=== PATIENT | female | born 1970 | race Two or more races ===

== ENCOUNTER 2022-09-15 10:54 | Outpatient (REF) | payer OTHER, SELFPAY ==
[2022-09-15 13:55] LABS: Hematocrit 41.6 % (37.0-47.0); Hemoglobin 13.8 g/dl (12.0-16.0); Mean Corpuscular HGB Conc 33.2 g/dl (31.0-35.0); Mean Corpuscular Volume 90.4 fL (80.0-98.0); Mean Platelet Volume 9.7 fL (9.4-12.3); Platelet Count 294 X10*3/uL (160-400); Red Cell Distribution Width 12.6 % (11.0-16.0); White Blood Count 5.5 X10*3/uL (4.8-10.8)
[2022-09-15 15:53] LABS: Alanine Aminotransferase 42 U/L (0-31); Albumin Level 4.6 g/dL (3.5-5.0); Alkaline Phosphatase 147 U/L (39-117); Anion Gap 16 (12-20); Aspartate Amino Transferase 31 U/L (5-31); Bilirubin Total 0.3 mg/dL (0.0-1.0); Blood Urea Nitrogen 20 mg/dL (9-16); Carbon Dioxide 24 mmol/L (22-29); Chloride 108 mmol/L (96-108); Cholesterol 300 mg/dL; Estimated Glomerular Filt Rate > 60; Glucose Fasting 87 mg/dL (60-99); HDL Cholesterol 47 mg/dL; LDL Cholesterol Calculated 224 mg/dl; Magnesium 2.2 mg/dL (1.6-2.6); Potassium 5.2 mmol/L (3.3-5.1); Sodium 143 mmol/L (135-145); Total Protein 7.7 g/dL (6.5-8.0); Triglycerides 149 mg/dL
[2022-09-21 19:17] LABS: Vitamin D 25-OH, D2 <4 ng/mL; Vitamin D 25-OH, D3 36 ng/mL; Vitamin D 25-OH, Total 36 ng/mL (30-100)
== END 2022-09-15 10:55 | disposition home or self-care (01) ==
LOC: HO.WFDLDS 10:54
PROVIDERS: Visit Provider Hospitalist
DX: Z00.00 Encounter for general adult medical examination without abnormal findings (principal); E55.9 Vitamin D deficiency, unspecified; Z71.89 Other specified counseling
CPT/HCPCS: 36415; 80053; 80061; 82306; 83735; 84443; 85027

== ENCOUNTER 2022-12-08 10:15 | Outpatient (REF) | payer OTHER, SELFPAY ==
--- NOTE | ~2022-12-08 | MM_ITS ---
EXAMINATION: MM SCREENING DIGITAL BREAST TOMOSYNTHESIS, BILATERAL CLINICAL INFORMATION: Screening. Asymptomatic. The lifetime risk of breast cancer based on the Tyrer-Cuzick Model is 6%. COMPARISON: Mammography: 10/13/2011, 06/01/2010 ([facility] [place]). TECHNIQUE: Digital breast tomosynthesis is performed in both the craniocaudal and mediolateral oblique views along with computer-aided detection (CAD). Synthesized 2D images are generated from the tomosynthesis. FINDINGS: The breasts are heterogeneously dense, which may obscure small masses (ACR BI-RADS breast composition Category c). There are no significant masses, abnormal calcifications, or other abnormalities. No architectural abnormality or developing density or significant change from prior studies. The axilla and skin contours are unremarkable. MM/MM tomosynthesis screening BI IMPRESSION: No mammographic evidence of malignancy. ASSESSMENT: BI-RADS 1: Negative RECOMMENDATION: Routine annual mammography screening. This patient's information was entered into a reminder system with a target due date for their next mammogram.
== END 2022-12-08 10:16 | disposition home or self-care (01) ==
LOC: HO.MAMMO 10:15
PROVIDERS: PCP Hospitalist; Visit Provider Hospitalist
DX: Z12.31 Encounter for screening mammogram for malignant neoplasm of breast (principal)
CPT/HCPCS: 77063; 77067

== ENCOUNTER 2023-05-02 10:16 | Outpatient (AMB) | payer OTHER, SELFPAY ==
--- NOTE | 2023-05-02 10:19 | MHC.PC.OV ---
Vital Signs 05/02/23 10:21 Height 4 ft 11 in Weight 102 lb 8 oz BMI 20.7 BP 114/66 Blood Pressure Location Rt brachial Position Sitting Respiration 13 Pulse 78 Pulse Source Pulse Oximeter Temp 97.8 F Temp Source Temporal Artery Scan Pulse Oximetry (%) 99 Oxygen Delivery Method Room Air Intake Visit Reasons: Physical exam Intake Note: Patient would like a copy of her physical at end of visit. Patient states that she has been having ear troubles when her sinuses start acting up. Ear Specialist Required: Yes Ear Specialist Name: Jose ([id number]) Accompanied by: Self / Same As Patient Allergies mold Allergy (Intermediate, Verified 05/02/23 11:14) Runny Nose Seasonal Allergies Allergy (Intermediate, Verified 05/02/23 11:14) Runny Nose Medication List - Last Reviewed 05/02/23 by Kimberly Orellana MA atorvastatin 40 mg PO BEDTIME cholecalciferol (vitamin D3) 25 mcg PO DAILY fluticasone furoate 27.5 mcg/actuation (Flonase Sensimist) 1 spray intranasal DAILY magnesium hydroxide (Dulcolax (magnesium hydroxide)) 5 mL PO DAILY PRN multivitamin (Daily Multi-Vitamin tablet) 1 tab PO DAILY Tobacco use date assessed: 05/02/23 Dental Screening Dental Screen Date: 05/02/23 Did you have a dental visit in the last 12 months?: No Did you have a dental problem in the last 6 months where you did not have access to dental care?: No Was dental information given to patient?: Patient has dentist HPI HPI Comments History of Present Illness Details 52-year-old female presents for transfer of care Her former PCP is MARTHA who is no longer with the practice. Her last office visit was in September and she had blood work done She has past medical history significant for hyperlipidemia and vitamin-D deficiency She notes that she taking vitamin D3 1000 units and mulitvitamins daily. She states that she has not been taking atorvastatin daily as prescribed, because i don't like taking medications. She notes that she has been more anxious throughout this year. She states that her breathing is impaired and her heart races when she is anxious. She attributes her anxiety to her daily routine and issues surrounding her family. Patients states that disputes with her daughter and her makes her anxious. She requests medication for anxiety. She denies formal diagnosis of anxiety and depression. She notes that she has never been on a psychotropic medication. She admits to exercising with weights 2 to 3 times a week. Her last mammogram was on 12/08/2022: normal She notes that her last pap smear test was was 4 years ago: normal. She notes that she has a f/u appointment with her second crusher provider in May She was referred to GI at her last PCP visit. She notes that she does not want colonoscopy done at this time. [facility] Medical History No known health problems Surgical History No pertinent past surgical history Family History Father Dementia No family history of mental disorder Mother Diabetes Lung cancer No family history of mental disorder Social History Household Members: Spouse and Children Housing: House Alcohol intake: never Patient Tobacco Use Status: Never used Tobacco e-Cigarette/Vaping Use: Never Used service: No Current occupational status: employed Current occupation: [employer] Cognitive needs: No Hearing needs: No Vision needs: No Questionnaire PHQ-9 Over the last 2 weeks, how often have you been bothered by any of the following problems? 1. Little interest or pleasure in doing things: more than half the days 2. Feeling down, depressed, or hopeless: more than half the days 3. Trouble falling or staying asleep, or sleeping too much: more than half the days 4. Feeling tired or having little energy: more than half the days 5. Poor appetite or overeating: more than half the days 6. Feeling bad about yourself - or that you are a failure or have let yourself or your family down: several days 7. Trouble concentrating on things, such as reading the newspaper or watching television: more than half the days 8. Moving or speaking so slowly that other people could have noticed. Or the opposite - being so fidgety or restless that you have been moving around a lot more than usual: more than half the days 9. Thoughts that you would be better off or of hurting yourself in some way: not at all Total score: 15 Depression Screening Interpretation: Positive Depression Screening Follow-up: New Medication prescribed Depression Screening Done: Yes Source: Developed by Drs. Patel Dorado, Taina Grimes, Last iGlbert and colleagues, with an educational noman from [employer]. Thrive Questionnaire Date Thrive assessed: 09/15/22 AUDIT C Alcohol Use Questionnaire (AUDIT-C) 1. How often do you have a drink containing alcohol?: Never 3. How often do you have six or more drinks on one occasion?: Never Total Score: 0 MELISA-7 AMB Questionnaire MELISA-7 Date MELISA - 7 assessed: 05/02/23 Feeling nervous, anxious, or on edge: 1 = Several days Not being able to stop or control worryin = More than half the days Worrying too much about different things: 1 = Several days Trouble relaxin = More than half the days Being so restless that it is hard to sit still: 0 = Not at all Becoming easily annoyed or irritable: 2 = More than half the days Feeling afraid as if something awful might happen: 0 = Not at all Total MELISA-7 score (0-4 normal; 5-9 mild; 10-14 moderate; 15-21 severe): 8 Source: Developed by Drs. Patel Dorado, Taina Grimes, Last Gilbert and colleagues, with an educational noman from [employer]. Review of Systems Const Details: Const Denies chills, Denies fatigue, Denies fever(s), Denies headache(s) and Denies weakness ENT Denies dizziness and Denies headache(s) Card Denies chest pain, Denies lightheadedness, Denies dyspnea and Denies other (Palpitations) Resp Denies cough, Denies dyspnea, Denies wheezing and Denies other ( shortness of breath) GI Denies abdominal pain, Denies melena, Denies hematochezia, Denies change in bowel habits, Denies dyspepsia and Denies nausea Denies hematuria and Denies dysuria Musc Denies abnormal gait, Denies myalgias, Denies arthralgias, Denies numbness and Denies tingling Skin/Breast Denies rash, Denies unusual bruising and Denies wounds Neuro Denies abnormal gait, Denies dizziness, Denies headache(s), Denies memory loss, Denies numbness, Denies Sensory deficit (Neuro), Denies tingling and Denies weakness Psych Reports anxiety, Denies depression, Denies memory loss Endo Denies cold intolerance, Denies fatigue, Denies heat intolerance, Denies polydipsia and Denies polyuria Aller/Immun Denies wheezing Physical exam (Primary Care) Vital Signs: Last Vital Signs Temp 97.8 F 05/02/23 10:21 Pulse 78 05/02/23 10:21 Resp 13 05/02/23 10:21 BP 114/66 05/02/23 10:21 Pulse Ox 99 05/02/23 10:21 Oxygen Delivery Method Room Air 05/02/23 10:21 BMI result Body Mass Index 20.7 Tobacco/Smoking Status: Tobacco use Status Tobacco use date assessed 05/02/23 05/02/23 10:33 Patient Tobacco Use Status Never used Tobacco 05/02/23 10:21 e-Cigarette/Vaping Use Never Used 05/02/23 10:21 Depression Screening Interpretation: Positive Depression Screening Follow-up: New Medication prescribed Thrive Assessment: Date of Thrive Assessment Date Thrive assessed 09/15/22 05/02/23 10:21 Const Other: General: no acute distress and well developed Nutritional Appearance: well nourished Orientation/consciousness: patient oriented x3 HENMT Head: Yes normocephalic and Yes atraumatic Eyes General: appearance normal, both eyes and all related structures Pupils: Equal, round and reactive pupils present EOM: EOMs intact bilaterally Resp Effort & Inspection: normal respiratory effort Auscultation: clear to auscultation bilaterally Cardio Rate: regular rate Rhythm: regular rhythm Heart sounds: S1 normal heart sound present, S2 normal heart sound present, no gallops, no murmurs and no rubs GI Palpation (GI): No Abdominal aortic bruit present, Soft to palpation, nontender, No hepatosplenomegaly present and No Rebound tenderness present Auscultation: normal bowel sounds General: Yes no CVA tenderness Back/Spine/Pelvis Back: no CVA tenderness Cervical Spine: cervical ROM normal and No Cervical spine tenderness Thoracic/Lumbar Spine: thoraco-lumbar ROM normal, No pain with thoraco-lumbar ROM, No thoracic spinal tenderness and No lumbar spinal tenderness Extrem General: Yes normal to inspection, No edema and No calf tenderness Skin General: warm and dry. Normal skin color. Normal skin turgor Lesions: no lesions Rashes: no rashes Trauma: no lacerations or abrasions Wounds: no wounds Nails: normal Neuro General: patient oriented x3, gait normal and no focal neuro deficit Cranial nerves: Yes Equal, round and reactive pupils present Cognition (Neuro): normal cognition Gait exam (Neuro): Normal gait present Sensory Exam: No Sensory deficit (Neuro) Psych Appearance: grossly normal Affect: normal affect Attitude: cooperative Thought process: Normal thought process present Assessment and Plan Assessment & Plan (1) Hyperlipidemia: Code(s): E78.5 - Hyperlipidemia, unspecified Plan: She had blood work done in September 2022 Her total cholesterol and LDL levels were elevated, 300 and 224 respectively She has not been consistent with taking atorvastatin. Advised to take the medication as prescribed Advised to limit foods high in saturated fat and avoid foods high trans fat Will recheck lipids level. Advised to fast for 10-12 hours before getting blood work done Follow-up in 1 month or return sooner with symptoms or concerns Verbalized understanding and agreed with treatment plan. (2) Vitamin D deficiency: Code(s): E55.9 - Vitamin D deficiency, unspecified Plan: She admits to taking D3 1000 units daily Recent vitamin D3 level in September was normal, 36 Will recheck vitamin-D levels and make changes to her care plan as needed Continue to take vitamin D3 1000 units daily Verbalized understanding and agreed with treatment plan. (3) Hyperkalemia: Code(s): E87.5 - Hyperkalemia Plan: Her potassium level was slightly elevated in September, 5.2 Will recheck potassium level and make changes to her care plan if warranted Follow-up in 1 month or return sooner with symptoms or concerns Verbalized understanding and agreed with treatment plan. (4) Transaminitis: Code(s): R74.01 - Elevation of levels of liver transaminase levels Plan: Recent ALT alkaline phosphate levels were elevated, 42 and 147 respectively She denies history of alcohol intake. She is not obese Will recheck liver panel and make changes to her care plan if warranted Follow-up in 1 month Verbalized understanding and agreed with treatment plan. (5) Anxiety and depression: Code(s): F41.9 - Anxiety disorder, unspecified; F32.A - Depression, unspecified Plan: PHQ-9 and MELISA-7 scores revealed moderately severe depression and mild anxiety respectively Hydroxyzine ordered. Take as prescribed Routine exercise encouraged Follow-up in 1 month or return sooner with worsening or new symptoms Verbalized understanding and agreed with treatment plan. Orders: Orders Comprehensive [place]. Panel Fast Today E55.9 - Vitamin D deficiency, unspecified, E87.5 - Hyperkalemia, R74.01 - Elevation of levels of liver transaminase levels Lipid Panel Today E78.5 - Hyperlipidemia, unspecified Vitamin D 25-OH Total Today E55.9 - Vitamin D deficiency, unspecified Medications: New hydroxyzine HCl 25 mg PO TID 30 days PRN 90 tabs 1RF anxiety Coding Level of Care Code Est Pt Level 4 (10274) Diagnoses Hyperlipidemia E78.5 Vitamin D deficiency E55.9 Hyperkalemia E87.5 Transaminitis R74.01 Anxiety and depression F41.9; F32.A
[2023-05-02 10:21] VITALS: BP 114/66; PULSE 78; RESP 13; TEMP 36.6; O2SAT 99; BMI 20.7
== END 2023-05-02 11:51 | disposition home or self-care (01) ==
PROVIDERS: PCP Hospitalist; Visit Provider Nurse Practitioner Family
DX: E78.5 Hyperlipidemia, unspecified (principal); E55.9 Vitamin D deficiency, unspecified; E87.5 Hyperkalemia; R74.01 Elevation of levels of liver transaminase levels; F41.9 Anxiety disorder, unspecified; F32.A Depression, unspecified
CPT/HCPCS: 99214

== ENCOUNTER 2023-05-08 09:02 | Outpatient (REF) | payer OTHER, SELFPAY ==
[2023-05-08 12:45] LABS: Alanine Aminotransferase 49 U/L (0-31); Albumin Level 4.6 g/dL (3.5-5.0); Alkaline Phosphatase 145 U/L (39-117); Anion Gap 17 (12-20); Aspartate Amino Transferase 27 U/L (5-31); Bilirubin Total 0.4 mg/dL (0.0-1.0); Blood Urea Nitrogen 11 mg/dL (9-16); Calcium 10.4 mg/dL (8.4-10.2); Carbon Dioxide 25 mmol/L (22-29); Chloride 104 mmol/L (96-108); Cholesterol 274 mg/dL (<200); Estimated Glomerular Filt Rate > 60; Glucose Fasting 88 mg/dL (60-99); HDL Cholesterol 45 mg/dL (>40); LDL Cholesterol Calculated 191 mg/dL (<100); Potassium 4.7 mmol/L (3.3-5.1); Sodium 141 mmol/L (135-145); Total Protein 7.9 g/dL (6.5-8.0); Triglycerides 192 mg/dL (<150)
[2023-05-08 13:11] LABS: Vitamin D 25-OH Total 86.7 ng/mL (>30)
== END 2023-05-08 09:03 | disposition home or self-care (01) ==
LOC: HO.WFDLDS 09:02
PROVIDERS: Visit Provider Nurse Practitioner Family
DX: R74.01 Elevation of levels of liver transaminase levels (principal); E87.5 Hyperkalemia; E55.9 Vitamin D deficiency, unspecified; E78.5 Hyperlipidemia, unspecified; R73.01 Impaired fasting glucose
CPT/HCPCS: 36415; 80053; 80061; 82306

== ENCOUNTER 2023-08-08 11:30 | Outpatient (AMB) | payer OTHER, SELFPAY ==
[2023-08-08 11:34] VITALS: BP 126/68; PULSE 99; TEMP 36.7; O2SAT 97; BMI 20.2
--- NOTE | 2023-08-08 11:34 | AM.OFFWIN_ITS ---
Intake Vital Signs 08/08/23 11:34 Height 4 ft 11 in Weight 100 lb BMI 20.2 BP 126/68 Blood Pressure Location Lt brachial Position Sitting Pulse 99 Pulse Source Pulse Oximeter Temp 98.0 F Temp Source Temporal Artery Scan Pulse Oximetry (%) 97 Oxygen Delivery Method Room Air Oxygen Flow Rate 98.0 Intake Visit Reasons: EST/sore throat and ear pain(lobby masked) Intake Note: pt is here today for sore throat and ear pain started 1 week ago Patient Tobacco Use Status: Never used Tobacco Allergies mold Allergy (Intermediate, Verified 08/08/23 11:35) Runny Nose Seasonal Allergies Allergy (Intermediate, Verified 08/08/23 11:35) Runny Nose Do you need a note to return to daycare/school/sports/work: No HPI HPI Comments History of Present Illness Details Patient is a 53-year-old female in today for a sick visit. She states that over the past week she has developed symptoms of cough, sore throat, ear fullness, headache. Patient states that her cough is worse in the morning and at night. She has a past medical history significant for asthma, does not have an albuterol inhaler at this time, will prescribe. Denies sick contacts. Denies recent travel. Denies shortness of breath, chest pain, nausea, numbness, dizziness, vomiting, diarrhea. [facility] Medical History No known health problems Surgical History No pertinent past surgical history Family History Father Dementia No family history of mental disorder Mother Diabetes Lung cancer No family history of mental disorder Social History Household Members: Spouse and Children Housing: House Alcohol intake: never Patient Tobacco Use Status: Never used Tobacco e-Cigarette/Vaping Use: Never Used service: No Current occupational status: employed Current occupation: [employer] Cognitive needs: No Hearing needs: No Vision needs: No Review of Systems Const All systems reviewed & are unremarkable except as noted in HPI and below Reports headache(s) ENT Denies dizziness, Reports otalgia, Reports headache(s) and Reports sore throat Card Denies chest pain, Denies chest pain at rest, Denies dyspnea and Denies dyspnea on exertion Resp Reports cough (With green mucus), Denies dyspnea and Denies dyspnea on exertion Neuro Denies dizziness and Reports headache(s) Physical Exam Vital Signs: Last Vital Signs Temp 98.0 F 08/08/23 11:34 Pulse 99 08/08/23 11:34 BP 126/68 08/08/23 11:34 Pulse Ox 97 08/08/23 11:34 Oxygen Delivery Method Room Air 08/08/23 11:34 Oxygen Flow Rate 98.0 08/08/23 11:34 BMI result Body Mass Index 20.2 Vital signs reviewed stable Const Other: Appearance: Alert.? Oriented X3.? No acute distress.? Head: Normocephalic, atraumatic, no step-offs or deformities Eyes: Pupils equal, round and reactive to light.? ENT: Pharynx erythema. TM intact no erythema but effusion bilaterally. Neck: Normal inspection.? Neck supple.?Full ROM CVS: Normal heart rate and rhythm.? Pulses normal.? Respiratory: No respiratory distress.? Breath sounds normal.? Neuro: Oriented X 3.? No motor deficit.? No sensory deficit. CN 2-12 intact Results AMB Rapid Strep AMB Rapid Strep Negative Last Edit by Ginny Gaspar CMA on 08/08/23 11:54 Results Reviewed Results Reviewed: Laboratory Last Values Strep Scn [facility] Negative 08/08/23 11:54 Assessment & Plan Assessment & Plan (1) Upper respiratory infection: Comment: Patient had upper respiratory swab in office will get back to her with results. Patient had in office strep test which was negative. Will order prednisone, deanna thromycin, with a albuterol inhaler, benzonatate to be taken as directed. Patient has been educated on signs of worsening symptoms when to report back to the office when to present to the ED. Code(s): J06.9 - Acute upper respiratory infection, unspecified Qualifiers: URI type: unspecified URI Qualified Code(s): J06.9 - Acute upper respiratory infection, unspecified Plan: Take your medications as prescribed. If you were prescribed antibiotics today, it is important that you take your medication to their entirety, do not skip any doses, do not finish them early. Follow-up with your primary care provider this week. Return to the emergency department with new or worsening symptoms. Such as fevers, chills, chest pain, shortness of breath, nausea, vomiting, dizziness, headache, vision changes, lethargy In case of emergency call 911 Plan Follow-up with PCP. Orders: Orders AMB Rapid Strep Screen 08/08/23 Z13.9 - Encounter for screening, unspecified BEKA Choi SARS-CoV2/FLU/RSV 08/08/23 J06.9 - Acute upper respiratory infection, unspecified ARAM Vazquez Medications: New albuterol sulfate 90 mcg/actuation 2 puffs inhalation Q6H PRN 6.7 grams 0RF shortness of breath or wheezing ARAM Vazquez prednisone 20 mg PO BID 10 tabs 0RF ARAM Vazquez benzocaine-menthol 15-2.6 mg (Cepacol Sore Throat (benzocaine-menthol)) 1 shawn mucous membrane Q2-4H PRN 16 ea 0RF pain ARAM Vazquez azithromycin For 250 mg dose pack: take 500 mg today (day 1), then 250 mg for 4 days (days 2-5) PO 6 tabs 0RF ARAM Vazquez Coding Level of Care Code Est Pt Level 3 (63675) Diagnoses Upper respiratory tract infection, unspecified type J06.9 URI type: unspecified URI
== END 2023-08-08 12:32 | disposition home or self-care (01) ==
PROVIDERS: PCP Nurse Practitioner Family; Visit Provider Nurse Practitioner Primary Care
DX: J06.9 Acute upper respiratory infection, unspecified (principal)
CPT/HCPCS: 87880; 99213

== ENCOUNTER 2023-08-08 14:09 | Outpatient (REF) | payer OTHER, SELFPAY ==
[2023-08-08 14:56] LABS: Influenza A PCR NEGATIVE (Negative); Influenza B PCR NEGATIVE (Negative); Resp Syncy Virus RNA Qual PCR NEGATIVE (Negative); SARS COV2 PCR INHOUSE NEGATIVE (Negative)
== END 2023-08-08 14:10 | disposition home or self-care (01) ==
LOC: HO.LNP 14:09
PROVIDERS: Visit Provider Nurse Practitioner Primary Care
DX: J06.9 Acute upper respiratory infection, unspecified (principal); Z11.52 Encounter for screening for COVID-19; Z20.828 Contact with and (suspected) exposure to other viral communicable diseases
CPT/HCPCS: 0241U

== ENCOUNTER 2023-09-23 09:57 | Outpatient (AMB) | payer OTHER, SELFPAY ==
[2023-09-23 10:22] VITALS: BP 114/73; PULSE 90; TEMP 36.9; O2SAT 98; BMI 20.2
--- NOTE | 2023-09-23 10:22 | AM.OFFWIN_ITS ---
Intake Vital Signs 09/23/23 10:22 Height 4 ft 11 in Weight 100 lb BMI 20.2 BP 114/73 Blood Pressure Location Rt brachial Pulse 90 Pulse Source Pulse Oximeter Temp 98.5 F Temp Source Oral Pulse Oximetry (%) 98 Oxygen Delivery Method Room Air Intake Visit Reasons: EP ?Pulmonary infection Intake Note: pt is here for c/o possible upper resp infection Patient Tobacco Use Status: Never used Tobacco Allergies mold Allergy (Intermediate, Verified 09/23/23 10:23) Runny Nose Seasonal Allergies Allergy (Intermediate, Verified 09/23/23 10:23) Runny Nose Do you need a note to return to daycare/school/sports/work: No HPI HPI Comments History of Present Illness Details 53-year-old female who presents for conc mamie of productive cough sinus pain and pressure. Been present for over a week now. She has been using Flonase without much relief. Getting ready to travel and is concerned about her symptoms. [facility] Medical History No known health problems Surgical History No pertinent past surgical history Family History Father Dementia No family history of mental disorder Mother Diabetes Lung cancer No family history of mental disorder Social History Household Members: Spouse and Children Housing: House Alcohol intake: never Patient Tobacco Use Status: Never used Tobacco e-Cigarette/Vaping Use: Never Used service: No Current occupational status: employed Current occupation: [employer] Cognitive needs: No Hearing needs: No Vision needs: No Physical Exam Vital Signs: Last Vital Signs Temp 98.5 F 09/23/23 10:22 Pulse 90 09/23/23 10:22 BP 114/73 09/23/23 10:22 Pulse Ox 98 09/23/23 10:22 Oxygen Delivery Method Room Air 09/23/23 10:22 BMI result Body Mass Index 20.2 Const General: cooperative, healthy appearing, no acute distress and alert Orientation/consciousness: patient oriented x3 Limitations: no limitations HEENT Other: Maxillary tenderness to palpation bilaterally Head: Yes normal to inspection Ears: hearing grossly normal bilaterally General nose exam: Normal external nose present Resp Effort & Inspection: normal respiratory effort and able to speak in complete sentences Cardio Rate: regular rate Skin General skin exam: no rashes or lesions noted Neuro General: patient oriented x3 Extrem General: Yes normal to inspection Assessment & Plan Assessment & Plan (1) Acute sinusitis: Code(s): J01.90 - Acute sinusitis, unspecified Qualifiers: Sinusitis location: maxillary Recurrence: non-recurrent Qualified Code(s): J01.00 - Acute maxillary sinusitis, unspecified Plan: Signs symptoms consistent with acute maxillary sinusitis will prescribe Augmentin b.i.d. times 10 days Medications: New amoxicillin-pot clavulanate 875-125 mg 1 tab PO BID 20 tabs 0RF 10 days Coding Level of Care Code Est Pt Level 2 (03961) Diagnoses Acute non-recurrent maxillary sinusitis J01.00 Sinusitis location: maxillary Recurrence: non-recurrent
== END 2023-09-23 11:12 | disposition home or self-care (01) ==
PROVIDERS: PCP Nurse Practitioner Family; Visit Provider Physician Assistant
DX: J01.00 Acute maxillary sinusitis, unspecified (principal)
CPT/HCPCS: 99051; 99212

== ENCOUNTER 2023-12-11 09:47 | Outpatient (AMB) | payer OTHER, SELFPAY ==
--- NOTE | 2023-12-11 11:17 | AM.OFFWIN_ITS ---
Intake Vital Signs 12/11/23 11:18 Height 4 ft 11 in Weight 99 lb BMI 20.0 BP 110/66 Blood Pressure Location Lt brachial Position Sitting Pulse 87 Pulse Source Pulse Oximeter Temp 97.5 F Temp Source Temporal Artery Scan Pulse Oximetry (%) 98 Oxygen Delivery Method Room Air Intake Visit Reasons: EP cough soar throat Intake Note: pt is here for cough and sore throat started 4 days ago Patient Tobacco Use Status: Never used Tobacco Allergies mold Allergy (Intermediate, Verified 12/11/23 11:23) Runny Nose Seasonal Allergies Allergy (Intermediate, Verified 12/11/23 11:23) Runny Nose Do you need a note to return to daycare/school/sports/work: No HPI HPI Comments History of Present Illness Details Patient presents to the walk in for 1 week cough, congestion, ear itching, sore throat has been taking OTC allergy medicine without improvement seen here couple months ago for same. given albuterol MDI but has run out. Denies fever, chest pain, shortness of breath, palpitations, syncope, weakness PFSH Medical History No known health problems Surgical History No pertinent past surgical history Family History Father Dementia No family history of mental disorder Mother Diabetes Lung cancer No family history of mental disorder Social History Household Members: Spouse and Children Housing: House Alcohol intake: never Patient Tobacco Use Status: Never used Tobacco e-Cigarette/Vaping Use: Never Used service: No Current occupational status: employed Current occupation: [employer] Cognitive needs: No Hearing needs: No Vision needs: No Review of Systems Const All systems reviewed & are unremarkable except as noted in HPI and below Physical Exam Vital Signs: Last Vital Signs Temp 97.5 F 12/11/23 11:18 Pulse 87 12/11/23 11:18 BP 110/66 12/11/23 11:18 Pulse Ox 98 12/11/23 11:18 Oxygen Delivery Method Room Air 12/11/23 11:18 BMI result Body Mass Index 20.0 General: awake, alert, oriented. Answers questions appropriately. Fully engaged in examination. Skin: warm, dry, intact HEENT: TMs intact bilaterally, no redness. Posterior pharynx without erythema or exudate. Sclera without icterus or injection. Cardiac: External chest normal in appearance. Respiratory: + dry cough. LSCTAB. Abdomen: without gross distension. Neurological: Oriented to person, place, time and situation. Thought process intact. Psychiatric: Appropriate mood and affect. Good judgment and insight. Results AMB Rapid Strep AMB Rapid Strep Negative Last Edit by TAO Hahn on 12/11/23 11:5 8 Assessment & Plan Assessment & Plan (1) Upper respiratory infection: Code(s): J06.9 - Acute upper respiratory infection, unspecified Qualifiers: URI type: unspecified URI Qualified Code(s): J06.9 - Acute upper respiratory infection, unspecified Plan URI, no abx warranted. alb refill sent Benzonatate 100mg po bid as needed prednisone 40mg po daily X 5 days Rest, drink plenty of fluids, tylenol or motrin as needed. continue with claritin/zyrtec Follow up with pcp or in clinic for any new or worsening symptoms. Go to ER for shortness of breath, chest pain, palpitations, weakness, dizziness. Orders: Orders AMB Rapid Strep Screen Today Z13.9 - Encounter for screening, unspecified Medications: New prednisone 40 mg (2 x 20 mg) PO DAILY 5 days 10 tabs 0RF benzonatate 100 mg PO BID PRN 20 caps 0RF cough Refilled albuterol sulfate 90 mcg/actuation 2 puffs inhalation Q6H PRN 6.7 grams 0RF shortness of breath or wheezing Coding Level of Care Code Est Pt Level 3 (96681) Diagnoses Upper respiratory tract infection, unspecified type J06.9 URI type: unspecified URI
[2023-12-11 11:18] VITALS: BP 110/66; PULSE 87; TEMP 36.4; O2SAT 98
== END 2023-12-11 12:18 | disposition home or self-care (01) ==
PROVIDERS: PCP Nurse Practitioner Family; Visit Provider Registered Nurse Emergency
DX: J02.9 Acute pharyngitis, unspecified (principal)
CPT/HCPCS: 87880; 99213

== ENCOUNTER 2023-12-28 10:28 | Outpatient (AMB) | payer OTHER, SELFPAY ==
[2023-12-28 10:46] VITALS: BP 140/70; PULSE 122; TEMP 36.4; O2SAT 98; BMI 20.4
--- NOTE | 2023-12-28 10:46 | AM.OFFWIN_ITS ---
Intake Vital Signs 12/28/23 10:46 12/28/23 11:15 Height 4 ft 11 in Weight 101 lb BMI 20.4 BP 140/70 H Blood Pressure Location Lt brachial Position Sitting Pulse 122 H 95 Pulse Source Pulse Oximeter Palpation Temp 97.5 F Temp Source Temporal Artery Scan Pulse Oximetry (%) 98 Oxygen Delivery Method Room Air Intake Visit Reasons: EP F/U sore throat cough congestion Intake Note: pt is here today for sore throat started 1 month ago Patient Tobacco Use Status: Never used Tobacco Allergies mold Allergy (Intermediate, Verified 12/28/23 11:13) Runny Nose Seasonal Allergies Allergy (Intermediate, Verified 12/28/23 11:13) Runny Nose Medication List - Last Reconciled 12/28/23 by ARAM Vazquez albuterol sulfate 90 mcg/actuation 2 puffs inhalation Q6H PRN atorvastatin 40 mg PO BEDTIME benzonatate 100 mg PO BID PRN cholecalciferol (vitamin D3) 25 mcg PO DAILY fluticasone furoate 27.5 mcg/actuation (Flonase Sensimist) 1 spray intranasal DAILY magnesium hydroxide (Dulcolax (magnesium hydroxide)) 5 mL PO DAILY PRN multivitamin (Daily Multi-Vitamin tablet) 1 tab PO DAILY Do you need a note to return to daycare/school/sports/work: No HPI HPI Comments History of Present Illness Details Patient is a 53-year-old female in today for a sick visit. She was in today with symptoms of cough, sore throat, chest congestion, sinus tenderness x3 weeks. Patient was seen in our walk-in clinic 2 weeks prior with similar symptoms was given prednisone and benzonatate. Patient states that her symptoms relief while she was taking the medication, however when she stopped the prednisone the symptoms soon return Patient denies sick contacts. States that the cough is worse at night. She reports that she is expectorating green and yellow mucus denies fever or chills, denies chest pain, denies shortness of breath, nausea vomiting or diarrhea. Patient utilized albuterol inhaler immediately before this appointment. Will give patient azithromycin today, prednisone, refill albuterol inhaler. Will also obtain URI swab ON LICENSE OF [facility] Medical History No known health problems Surgical History No pertinent past surgical history Family History Father Dementia No family history of mental disorder Mother Diabetes Lung cancer No family history of mental disorder Social History Household Members: Spouse and Children Housing: House Alcohol intake: never Patient Tobacco Use Status: Never used Tobacco e-Cigarette/Vaping Use: Never Used service: No Current occupational status: employed Current occupation: [employer] Cognitive needs: No Hearing needs: No Vision needs: No Review of Systems Const All systems reviewed & are unremarkable except as noted in HPI and below Denies chills and Denies fever(s) Eyes Denies blurry vision ENT Denies dizziness and Reports sore throat Card Denies chest pain and Denies dyspnea Resp Reports cough and Denies dyspnea GI Denies diarrhea, Denies nausea and Denies vomiting Neuro Denies dizziness Physical Exam Vital Signs: Last Vital Signs Temp 97.5 F 12/28/23 10:46 Pulse 122 H 12/28/23 10:46 BP 140/70 H 12/28/23 10:46 Pulse Ox 98 12/28/23 10:46 Oxygen Delivery Method Room Air 12/28/23 10:46 BMI result Body Mass Index 20.4 Const Other: Appearance: Alert.? Oriented X3.? No acute distress.? Head: Normocephalic. Eyes: Sclera white. ENT: Pharynx erythema, no exudates. +sinus tenderness. ? Neck: Normal inspection.? Neck supple.? CVS: Normal heart rate and rhythm.? Pulses normal.?Reassessment of HR 96 BPM. Respiratory: No respiratory distress.? Breath sounds normal. +cough with inspiration. ? Neuro: Oriented X 3.? No motor deficit.? No sensory deficit. CN 2-12 intact Results AMB Rapid Strep AMB Rapid Strep Negative Last Edit by TAO Hahn on 12/28/23 11:0 6 Assessment & Plan Assessment & Plan (1) Sinusitis: Comment: Patient will be given azithromycin, prednisone, and albuterol inhaler refilled. Patient has been instructed how to take these medications properly. She has been educated on side effects of these medications Code(s): J32.9 - Chronic sinusitis, unspecified Qualifiers: Chronicity: acute Recurrence: not specified as recurrent Sinusitis location: unspecified location Qualified Code(s): J01.90 - Acute sinusitis, unspecified Plan: Take your medications as prescribed. If you were prescribed antibiotics today, it is important that you take your medication to their entirety, do not skip any doses, do not finish them early. Follow-up with your primary care provider this week. Return to the emergency department with new or worsening symptoms. Such as fevers, chills, chest pain, shortness of breath, nausea, vomiting, dizziness, headache, vision changes, lethargy In case of emergency call 911 Plan Will follow-up with URI swab results Orders: Orders SARS-CoV2/FLU/RSV Today J06.9 - Acute upper respiratory infection, unspecified AMB Rapid Strep Screen Today Z13.9 - Encounter for screening, unspecified Medications: New prednisone 40 mg (2 x 20 mg) PO DAILY 10 tabs 0RF azithromycin For 250 mg dose pack: take 500 mg today (day 1), then 250 mg for 4 days (days 2-5) PO 6 tabs 0RF Refilled albuterol sulfate 90 mcg/actuation 2 puffs inhalation Q6H PRN 6.7 grams 0RF shortness of breath or wheezing Coding Level of Care Code Est Pt Level 3 (38991) Diagnoses Acute sinusitis, recurrence not specified, unspecified location J01.90 Chronicity: acute Recurrence: not specified as recurrent Sinusitis location: unspecified location Time Spent (min) 25
[2023-12-28 11:15] VITALS: PULSE 95
== END 2023-12-28 12:00 | disposition home or self-care (01) ==
PROVIDERS: PCP Nurse Practitioner Family; Visit Provider Nurse Practitioner Primary Care
DX: J02.9 Acute pharyngitis, unspecified (principal)
CPT/HCPCS: 87880; 99213

== ENCOUNTER 2023-12-28 13:16 | Outpatient (REF) | payer OTHER, SELFPAY ==
[2023-12-28 14:16] LABS: Influenza A PCR NEGATIVE (Negative); Influenza B PCR NEGATIVE (Negative); Resp Syncy Virus RNA Qual PCR NEGATIVE (Negative); SARS COV2 PCR INHOUSE NEGATIVE (Negative)
== END 2023-12-28 13:17 | disposition home or self-care (01) ==
LOC: HO.LNP 13:16
PROVIDERS: Visit Provider Nurse Practitioner Primary Care
DX: J06.9 Acute upper respiratory infection, unspecified (principal)
CPT/HCPCS: 0241U

== ENCOUNTER 2024-04-04 09:38 | Outpatient (AMB) | payer OTHER, SELFPAY ==
--- NOTE | 2024-04-04 09:42 | A.OFFPC_ITS ---
Vital Signs 04/04/24 09:49 Height 4 ft 11 in Weight 102 lb 6 oz BMI 20.7 BP 110/80 Blood Pressure Location Rt brachial Position Sitting Respiration 16 Pulse 76 Pulse Source Pulse Oximeter Temp 98.1 F Temp Source Oral Pulse Oximetry (%) 99 Oxygen Delivery Method Room Air Intake Visit Reasons: CPE Intake Note: patient here for CPE Group Underwriter Required: No Is last menstrual period known: No Post menopausal: No Patient : No Allergies mold Allergy (Intermediate, Verified 04/04/24 09:58) Runny Nose Seasonal Allergies Allergy (Intermediate, Verified 04/04/24 09:58) Runny Nose Medication List - Last Reconciled 04/04/24 by Fco Serna CNP albuterol sulfate 90 mcg/actuation 2 puffs inhalation Q6H PRN cholecalciferol (vitamin D3) 25 mcg PO DAILY fluticasone furoate 27.5 mcg/actuation (Flonase Sensimist) 1 spray intranasal DAILY magnesium hydroxide (Dulcolax (magnesium hydroxide)) 5 mL PO DAILY PRN Tobacco use date assessed: 04/04/24 Dental Screening Dental Screen Date: 04/04/24 Did you have a dental visit in the last 12 months?: Yes Did you have a dental problem in the last 6 months where you did not have access to dental care?: No Was dental information given to patient?: Patient has dentist HPI HPI Comments History of Present Illness Details 53-year-old [place] speaking female pres ents for an extended physical exam She has past medical history significant for hyperlipidemia, vitamin-D deficiency, transaminitis, anxiety, and depression She notes that she stopped taking atorvastatin 2 months ago because she does not like taking too many medications She reports pain and numbness to her fingers which has been ongoing for the past 1 year; she notes associated tingling at night; she describes the pain as pulsating. Her symptoms intensifies with performing activities with her hands. She has been taking ibuprofen without relief. No wrist pain. No fall, injury, or trauma. She also reports pain to the back of her right shoulder for the past 3 weeks; she was exercising using 15 to 20 lb weights; she has not been able to lift weights since his shoulder pain started She states that she generally eats and sleeps well. She exercises routinely She reports controlled anxiety and depressive symptoms Nonsmoker, Does not drink alcohol, no recreational drugs Last eye exam was 2-3 years ago. She requests a referral Last mammogram on 12/2022, She declines referral for a mammogram and notes she does not wish to continue mammogram She has never had a colonoscopy. She declined referral for a colonoscopy and notes she does not wish to continue colonoscopy She notes that her last pap smear test was with [facility] resident hall director 3 years ago. She will follow up with her resident hall director She has not been vaccinated for shingles and declines the vaccine Last tetanus vaccine was in 2019 Interpretation by a professional research professional [facility] Medical History No known health problems Surgical History No pertinent past surgical history Family History Father Dementia No family history of mental disorder Mother Diabetes Lung cancer No family history of mental disorder Social History Household Members: Spouse and Children Housing: House Alcohol intake: never Patient Tobacco Use Status: Never used Tobacco e-Cigarette/Vaping Use: Never Used service: No Current occupational status: employed Current occupation: [employer] Current occupational exposures/hazards: No Cognitive needs: No Hearing needs: No Vision needs: No Questionnaire PHQ-9 Over the last 2 weeks, how often have you been bothered by any of the following problems? 1. Little interest or pleasure in doing things: not at all 2. Feeling down, depressed, or hopeless: not at all 3. Trouble falling or staying asleep, or sleeping too much: several days 4. Feeling tired or having little energy: several days 5. Poor appetite or overeating: not at all 6. Feeling bad about yourself - or that you are a failure or have let yourself or your family down: not at all 7. Trouble concentrating on things, such as reading the newspaper or watching television: not at all 8. Moving or speaking so slowly that other people could have noticed. Or the opposite - being so fidgety or restless that you have been moving around a lot more than usual: not at all 9. Thoughts that you would be better off or of hurting yourself in some way: not at all Total score: 2 Depression Screening Interpretation: Negative Depression Screening Done: Yes 79884 - PHQ-9 Billing: Yes Source: Developed by Drs. Patel Dorado, Taina Grimes, Last Gilbert and colleagues, with an educational noman from [employer]. Thrive Questionnaire Date Thrive assessed: 04/04/24 I am a: Patient What is your living situation today?: I have a steady place to live Within the past 12 months, did the food you bought not last and you didn't have the money to get more?: Never true Within the past 12 months, did you worry whether your food would run out before you got money to buy more?: Never true Do you have trouble paying for medicines?: No Do you have trouble getting transportation to medical appointments?: No Do you have trouble paying your heating and electricity bill?: No Do you have trouble taking care of your child, family member or friend?: No Do you have trouble with day-to-day activities such as bathing, preparing meals, shopping, managing finances, etc.?: No Are you currently unemployed and looking for a job?: No Are you interested in more education?: No Please select the resources that you would like help with: None Currently or been in a relationship where the following occur: No concerns reported THRIVE Score: 0 AUDIT C Alcohol Use Questionnaire (AUDIT-C) 1. How often do you have a drink containing alcohol?: Never Total Score: 0 Score Reviewed/Action Taken: Yes MELISA-7 AMB Questionnaire MELISA-7 Date MELISA - 7 assessed: 04/04/24 Feeling nervous, anxious, or on edge: 2 = More than half the days Not being able to stop or control worryin = Several days Worrying too much about different things: 1 = Several days Trouble relaxin = Several days Being so restless that it is hard to sit still: 0 = Not at all Becoming easily annoyed or irritable: 1 = Several days Feeling afraid as if something awful might happen: 0 = Not at all Total MELISA-7 score (0-4 normal; 5-9 mild; 10-14 moderate; 15-21 severe): 6 Source: Developed by Taina Barriga Cornelio, Last Gilbert and colleagues, with an educational noman from [employer]. MELISA-7 Assessment Billing MELISA-7 Assessment Tool: MELISA-7 Assessment 40773 Review of Systems Const Details: Denies chills, Denies fatigue, Denies fever(s), Denies headache(s) and Denies weakness HEENT Denies change in vision, Denies dizziness, Denies headache(s), Denies hearing loss, Denies nasal congestion, Denies sinus pain, Denies sinus pressure and Denies sore throat Card Denies chest pain, Denies lightheadedness, Denies dyspnea and Denies other (palpitations) Resp Denies cough, Denies dyspnea and Denies wheezing GI Denies abdominal pain, Denies melena, Denies hematochezia, Denies change in bowel habits, Denies dyspepsia and Denies nausea Denies hematuria and Denies dysuria Musc Reports as per HPI Skin/Breast Denies rash, Denies unusual bruising and Denies wounds Neuro Denies abnormal gait, Denies dizziness, Denies headache(s), Denies memory loss, Denies numbness, Denies Sensory deficit (Neuro), Denies tingling and Denies weakness Psych Denies anxiety, Denies depression and Denies memory loss Endo Denies cold intolerance, Denies fatigue, Denies heat intolerance, Denies polydipsia and Denies polyuria Jordan/Lymph Denies easy bleeding and Denies easy bruising Aller/Immun Denies wheezing Physical exam (Primary Care) Vital Signs: Last Vital Signs Temp 98.1 F 04/04/24 09:49 Pulse 76 04/04/24 09:49 Resp 16 04/04/24 09:49 BP 110/80 04/04/24 09:49 Pulse Ox 99 04/04/24 09:49 Oxygen Delivery Method Room Air 04/04/24 09:49 BMI result Body Mass Index 20.7 Tobacco/Smoking Status: Tobacco use Status Tobacco use date assessed 04/04/24 04/04/24 09:55 Patient Tobacco Use Status Never used Tobacco 04/04/24 09:44 e-Cigarette/Vaping Use Never Used 04/04/24 09:44 PHQ-9: PHQ-9 Score PHQ-9: Total score 2 04/04/24 09:55 Depression Screening Interpretation: Negative Thrive Assessment: Date of Thrive Assessment Date Thrive assessed 04/04/24 04/04/24 09:55 Currently or been in a relationship where the following occur: No concerns reported Const Other: General: no acute distress, well developed, alert and awake Nutritional Appearance: well nourished Orientation/consciousness: patient oriented x3 [facility] Head: Yes normocephalic and Yes atraumatic Ears: hearing grossly normal bilaterally and TM's normal bilaterally General nose exam: Normal external nose present and Normal nares present Mouth: Normal oral and palatal mucosa present and moist mucous membranes Teeth and gingiva: dentition normal Throat: Yes oropharynx normal Eyes Pupils: Equal, round and reactive pupils present and Pupil accommodation reflex normal EOM: EOMs intact bilaterally Neck Neck: Yes normal visual inspection, Yes no lymphadenopathy and Yes trachea midline Thyroid: Thyroid normal Carotids: no bruits Lymphatic: no lymphadenopathy noted Chest Chest palpation & inspection: normal inspection of the chest Resp Effort & Inspection: normal respiratory effort Auscultation: clear to auscultation bilaterally Cardio Rate: regular rate Rhythm: regular rhythm Heart sounds: S1 normal heart sound present, S2 normal heart sound present, no gallops, no murmurs and no rubs Bruits: no abdominal aortic bruits and no carotid bruits GI Palpation (GI): No Abdominal aortic bruit present, Soft to palpation, nontender, No hepatosplenomegaly present and No Rebound tenderness present Auscultation: normal bowel sounds General: Yes no CVA tenderness Back/Spine/Pelvis Back: no CVA tenderness Cervical Spine: cervical ROM normal and No Cervical spine tenderness Thoracic/Lumbar Spine: thoraco-lumbar ROM normal, No pain with thoraco-lumbar ROM, No thoracic spinal tenderness and No lumbar spinal tenderness Skin General: warm and dry. Normal skin color. Normal skin turgor Lesions: no lesions Rashes: no rashes Trauma: no lacerations or abrasions Wounds: no wounds Nails: normal Neuro General: patient oriented x3, gait normal and CN's II-XI intact bilaterally Cranial nerves: Yes Equal, round and reactive pupils present Cognition (Neuro): normal cognition Gait exam (Neuro): Normal gait present Motor exam (neuro): 5/5 motor strength present throughout Sensory Exam: No Sensory deficit (Neuro) Deep tendon reflexes (DTR's): Right patellar reflex intensity grade: 2+ and Left patellar reflex intensity grade: 2+ Extrem General: Yes normal to inspection, No edema and No calf tenderness Tenderness to right scapular muscle proximal to the shoulder. Normal ROM of the right shoulder. No overt injury or trauma Psych Appearance: grossly normal Affect: normal affect Attitude: cooperative Thought process: Normal thought process present Assessment and Plan Assessment & Plan (1) Normal physical exam, routine: Code(s): Z00.00 - Encounter for general adult medical examination without abnormal findings Plan: No significant physical restrictions or limitations noted Continue current treatment regimen Healthy diet and routine exercise encouraged Follow-up in 1 month for labs review or sooner with symptoms or concern Verbalized understanding and agreed with the plan (2) Bilateral hand pain: Code(s): M79.641 - Pain in right hand; M79.642 - Pain in left hand Plan: She notes pain, numbness, and tingling to both hands for the past 1 year. No wrist pain Normal range of motion of both hands/wrists. No overt injury or trauma Naproxen ordered. Advised to take as prescribed and with meals. Instructed on the risks, benefits, and potential adverse reactions of the medication Will check folate and vitamin B12 levels Follow-up with worsening or new symptoms Verbalized understanding and agreed with the plan (3) Right shoulder pain: Code(s): M25.511 - Pain in right shoulder Plan: Reports right shoulder pain x3 weeks. No injury or trauma Tenderness to right scapular muscle proximal to the shoulder. Normal ROM of the right shoulder. No overt injury or trauma Naproxen as prescribed X-ray ordered Advised to avoid heavy lifting until healed Follow-up with worsening or new symptoms Verbalized understanding and agreed with the plan (4) Eye exam, routine: Code(s): Z01.00 - Encounter for examination of eyes and vision without abnormal findings Plan: Last eye exam was 2-3 years ago. She requests a referral Referred for routine eye care (5) Anxiety and depression: Code(s): F41.9 - Anxiety disorder, unspecified; F32.A - Depression, unspecified Plan: Reports controlled anxiety and depressive symptoms MELISA-7 score revealed mild anxiety. PHQ-9 score is normal Routine exercise encouraged Return with symptoms or concerns Verbalized understanding and agreed with the plan Orders: Orders Microalbumin, Random (w Creat) Today Z00.00 - Encounter for general adult medical examination without abnormal findings TSH reflex Free T4 Today Z00.00 - Encounter for general adult medical examination without abnormal findings Vitamin B12 and Folate Today M79.641 - Pain in right hand, M79.642 - Pain in left hand XR shoulder RT 1V Today M25.511 - Pain in right shoulder Vitamin D 25-OH Total Today E55.9 - Vitamin D deficiency, unspecified Complete Blood Count Auto Diff Today Z00.00 - Encounter for general adult medical examination without abnormal findings Comprehensive [place]. Panel Fast Today Z00.00 - Encounter for general adult medical examination without abnormal findings Lipid Panel Today Z00.00 - Encounter for general adult medical examination without abnormal findings UA CC w/rflx Micro + Cult Today Z00.00 - Encounter for general adult medical examination without abnormal findings Referrals Ophthalmology Referral Z01.00 - Encounter for examination of eyes and vision without abnormal findings Medications: New naproxen 500 mg PO BID PRN 30 tabs 1RF pain Coding Level of Care Code Tele New Pt Level 4 (14933) Est Pt Prev Care 40-64y(98599) Diagnoses Normal physical exam, routine Z00.00 Bilateral hand pain M79.641; M79.642 Right shoulder pain M25.511 Eye exam, routine Z01.00 Anxiety and depression F41.9; F32.A Additional Codes MELISA-7 Assessment Billing - MELISA-7 Assessment Tool: MELISA-7 Assessment [id number] ([id number])
[2024-04-04 09:49] VITALS: BP 110/80; PULSE 76; RESP 16; TEMP 36.7; O2SAT 99; BMI 20.7
== END 2024-04-04 10:39 | disposition home or self-care (01) ==
PROVIDERS: PCP Nurse Practitioner Family; Visit Provider Nurse Practitioner Family
DX: Z00.00 Encounter for general adult medical examination without abnormal findings (principal); M79.641 Pain in right hand; M79.642 Pain in left hand; M25.511 Pain in right shoulder; Z01.00 Encounter for examination of eyes and vision without abnormal findings; F41.9 Anxiety disorder, unspecified; F32.A Depression, unspecified

== ENCOUNTER → 2024-04-04 09:38 | Outpatient (BNVA) | payer OTHER, SELFPAY | PROVIDERS: PCP Nurse Practitioner Family; Visit Provider Nurse Practitioner Family | DX: Z00.01 Encounter for general adult medical examination with abnormal findings (principal); F41.9 Anxiety disorder, unspecified; F32.A Depression, unspecified; M79.641 Pain in right hand; M79.642 Pain in left hand; M25.511 Pain in right shoulder | CPT/HCPCS: 96127; 99212; 99396 ==

== ENCOUNTER 2024-04-04 10:54 | Outpatient (REF) | payer OTHER, SELFPAY ==
[2024-04-04 14:22] LABS: MANUAL DIFF FLAG NO
[2024-04-04 14:25] LABS: Appearance Urine Turbid; Color Urine Yellow; Glucose Urine UA Negative (Negative); Leukocyte Esterase Urine Negative (Negative); Nitrite Urine Negative (Negative); PH 5.5 (5.0-9.0); UMIC TRIGGER UACC YES; Urine Blood Trace (Negative); Urine Ketones Negative (Negative); Urine Protein Negative (Neg-Trace)
[2024-04-04 14:26] LABS: Basophils Percent Auto 0.8 % (0-2); Eosinophils Percent Auto 1.1 % (0-4); Hematocrit 38.5 % (37.0-47.0); Hemoglobin 12.7 g/dl (12.0-16.0); Imm Gran Abs Auto 0.01 X10*3/uL (0.00-0.03); Imm Gran Pct Auto 0.3 % (0.0-0.4); Lymphocytes Absolute Auto 1.7 X10*3/uL (1.2-4.9); Lymphocytes Percent Auto 45.7 % (20-40); Mean Corpuscular Volume 90.8 fL (80.0-98.0); Mean Platelet Volume 9.5 fL (9.4-12.3); Monocytes Absolute Auto 0.3 X10*3/uL (0.1-1.2); Monocytes Percent Auto 8.6 % (2-11); Neutrophils Absolute Auto 1.6 x10*3/uL (2.0-8.3); Neutrophils Percent Auto 43.5 % (45-73); Platelet Count 275 X10*3/uL (160-400); Red Blood Count 4.24 X10*6/uL (4.20-5.50); Red Cell Distribution Width 12.4 % (11.0-16.0); White Blood Count 3.7 X10*3/uL (4.8-10.8)
[2024-04-04 14:43] LABS: Bacteria Urine None Seen (None Seen); Calcium Oxalate Crystals Urine Present; Hyaline Casts Urine 0-2 /LPF (0-2); RBC Urine 0-2 /HPF (0-2); Squamous Epithelial Cell Urine 0-2 /HPF (0-2); WBC Urine 0-5 /HPF (0-5)
[2024-04-04 14:44] LABS: Alanine Aminotransferase 28 U/L (0-31); Albumin Level 4.4 g/dL (3.5-5.0); Alkaline Phosphatase 142 U/L (39-117); Anion Gap 10 (12-20); Aspartate Amino Transferase 23 U/L (5-31); Bilirubin Total 0.2 mg/dL (0.0-1.0); Blood Urea Nitrogen 14 mg/dL (9-16); Carbon Dioxide 26 mmol/L (22-29); Chloride 108 mmol/L (96-108); Cholesterol 267 mg/dL (<200); Estimated Glomerular Filt Rate > 60; Glucose Fasting 86 mg/dL (60-99); HDL Cholesterol 42 mg/dL (>40); LDL Cholesterol Calculated 191 mg/dL (<100); Potassium 3.9 mmol/L (3.3-5.1); Sodium 140 mmol/L (135-145); Total Protein 7.4 g/dL (6.5-8.0); Triglycerides 171 mg/dL (<150)
[2024-04-04 14:55] LABS: Creatinine Urine 120.23 mg/dL; Microalbum/Creatinine Ratio Ur 6.6 ug/mg cr (<30)
[2024-04-04 15:00] LABS: TSH reflex Free T4 1.24 uIU/mL (0.32-4.0); Vitamin D 25-OH Total 46.3 ng/mL (>30)
[2024-04-04 18:45] LABS: Vitamin B12 494 pg/mL (200-900)
== END 2024-04-04 10:55 | disposition home or self-care (01) ==
LOC: HO.WFDLDS 10:54
PROVIDERS: Visit Provider Nurse Practitioner Family
DX: Z00.00 Encounter for general adult medical examination without abnormal findings (principal); M79.641 Pain in right hand; M79.642 Pain in left hand
CPT/HCPCS: 36415; 80053; 80061; 81001; 82043; 82306; 82570; 82607; 82746; 84443; 85025

== ENCOUNTER 2024-05-09 16:01 | Outpatient (AMB) | payer OTHER, SELFPAY ==
--- NOTE | 2024-05-09 14:23 | MHC.PC.OV ---
Intake Visit Reasons: 1 mos labs review Central Office Equipment Engineer Required: Yes Central Office Equipment Engineer Language: Lab Aid Name: Connie #[id number] Is last menstrual period known: No Post menopausal: No Patient : No Allergies mold Allergy (Intermediate, Verified 05/09/24 15:57) Runny Nose Seasonal Allergies Allergy (Intermediate, Verified 05/09/24 15:57) Runny Nose Tobacco use date assessed: 05/09/24 Dental Screening Dental Screen Date: 04/04/24 HPI HPI Comments History of Present Illness Details 53-year-old Malian-speaking female presents for a telehealth visit for review of recent lab results She admits to taking her medications as prescribed without adverse reactions No acute symptoms at this time Interpretation by a professional manager field services via telephone [facility] Medical History No known health problems Surgical History No pertinent past surgical history Family History Father Dementia No family history of mental disorder Mother Diabetes Lung cancer No family history of mental disorder Social History Household Members: Spouse and Children Housing: House Alcohol intake: never Patient Tobacco Use Status: Never used Tobacco e-Cigarette/Vaping Use: Never Used Patient : No service: No Current occupational status: employed Current occupation: [employer] Current occupational exposures/hazards: No Cognitive needs: No Hearing needs: No Vision needs: No Questionnaire Thrive Questionnaire Date Thrive assessed: 04/04/24 MELISA-7 AMB Questionnaire MELISA-7 Date MELISA - 7 assessed: 04/04/24 Source: Developed by Drs. Patel Dorado, Taina Grimes, Last Gilbert and colleagues, with an educational noman from [employer]. Review of Systems Const Details: Const Denies chills, Denies fatigue, Denies fever(s), Denies headache(s) and Denies weakness ENT Denies dizziness and Denies headache(s) Card Denies chest pain, Denies lightheadedness, Denies dyspnea and Denies other (Palpitations) Resp Denies cough, Denies dyspnea, Denies wheezing and Denies other ( shortness of breath) GI Denies abdominal pain, Denies melena, Denies hematochezia, Denies change in bowel habits, Denies dyspepsia and Denies nausea Denies hematuria and Denies dysuria Musc Denies abnormal gait, Denies myalgias, Denies arthralgias, Denies numbness and Denies tingling Skin/Breast Denies rash, Denies unusual bruising and Denies wounds Neuro Denies abnormal gait, Denies dizziness, Denies headache(s), Denies memory loss, Denies numbness, Denies Sensory deficit (Neuro), Denies tingling and Denies weakness Psych Denies anxiety, Denies depression, Denies memory loss Endo Denies cold intolerance, Denies fatigue, Denies heat intolerance, Denies polydipsia and Denies polyuria Aller/Immun Denies wheezing Physical exam (Primary Care) Tobacco/Smoking Status: Tobacco use Status Tobacco use date assessed 05/09/24 05/09/24 15:59 Patient Tobacco Use Status Never used Tobacco 05/09/24 14:25 e-Cigarette/Vaping Use Never Used 05/09/24 14:25 Thrive Assessment: Date of Thrive Assessment Date Thrive assessed 04/04/24 05/09/24 14:25 Const Other: Telehealth visit. No physical exam Telehealth Telehealth Telehealth Platform: Telephone Location of provider rendering services: practice address Location of patient: address on file Patient Identification confirmed using: Name, : Yes Telehealth method: voice only Patient verbally consented to treatment: Yes Patient verbally consented to billing insurance company: Yes Patient informed of any privacy concerns related to visit: Yes Coding Level of Care Code Tele Est Pt Level 4 (50283) Diagnoses Hyperlipidemia E78.5 Leukopenia D72.819 Right shoulder pain M25.511 Time Spent (min) 25 Assessment & Plan Assessment & Plan (1) Hyperlipidemia: Code(s): E78.5 - Hyperlipidemia, unspecified Category: Medical Plan: Recent triglycerides, total cholesterol, and LDL levels were elevated, 171, 267, and 191 respectively. She stopped taking atorvastatin about 3 months ago because she does not want to take too many medications. Will start atorvastatin 20 mg daily. Advised to take as prescribed. Instructed on the risks, benefits, and potential adverse reactions of the medication. Advised to limit foods high in saturated fat and avoid foods high in trans fat. Routine exercise encouraged. Advised to fast for 10-12 hours, may drink water only, and get blood work done 2-3 days before her next visit. Follow-up in 6 weeks or sooner with symptoms or concerns. Verbalized understanding and agreed with the plan. (2) Leukopenia: Code(s): D72.819 - Decreased white blood cell count, unspecified Category: Medical Plan: Recent white blood cell count is slightly low, 3.7. CBC is otherwise unremarkable. She has had history of slightly low white count dating back in 2019. Will referred to [facility] for further workup (3) Right shoulder pain: Code(s): M25.511 - Pain in right shoulder Category: Medical Plan: She did not get x-ray of her right shoulder done as planned for this visit. She notes that her right shoulder pain has completely resolved She may get xray done if her shoulder pain recur. Will review results and make changes as needed Verbalized understanding and agreed with the plan Orders: Orders Lipid Panel 6 Weeks E78.5 - Hyperlipidemia, unspecified Referrals Hematology & Oncology Referral D72.819 - Decreased white blood cell count, unspecified Medications: New atorvastatin 20 mg PO BEDTIME 30 days 30 tabs 3RF
== END 2024-05-09 16:25 | disposition home or self-care (01) ==
LOC: HO.HMCFM 16:01
PROVIDERS: PCP Nurse Practitioner Family; Visit Provider Nurse Practitioner Family
DX: E78.5 Hyperlipidemia, unspecified (principal); D72.819 Decreased white blood cell count, unspecified; M25.511 Pain in right shoulder

== ENCOUNTER → 2024-05-09 16:01 | Outpatient (BNVA) | payer OTHER, SELFPAY | PROVIDERS: PCP Nurse Practitioner Family; Visit Provider Nurse Practitioner Family | DX: E78.5 Hyperlipidemia, unspecified (principal); D72.819 Decreased white blood cell count, unspecified ==

== ENCOUNTER → 2024-06-26 11:03 | Outpatient (BNV) | payer OTHER, SELFPAY | PROVIDERS: Visit Provider Internal Medicine | DX: D72.819 Decreased white blood cell count, unspecified (principal) | CPT/HCPCS: 99204; G2211 ==

== ENCOUNTER 2024-06-27 08:38 | Outpatient (REF) | payer OTHER, SELFPAY ==
[2024-06-27 12:33] LABS: Influenza A PCR NEGATIVE (Negative); Influenza B PCR NEGATIVE (Negative); Resp Syncy Virus RNA Qual PCR NEGATIVE (Negative); SARS COV2 PCR INHOUSE POSITIVE (Negative)
== END 2024-06-27 08:39 | disposition home or self-care (01) ==
LOC: HO.LAB 08:38
PROVIDERS: PCP Registered Nurse; Visit Provider Registered Nurse
DX: J06.9 Acute upper respiratory infection, unspecified (principal)
CPT/HCPCS: 0241U; 99212

== ENCOUNTER 2024-06-27 08:38 | Outpatient (AMB) | payer OTHER, SELFPAY ==
[2024-06-27 08:46] VITALS: BP 110/70; PULSE 93; TEMP 36.9; O2SAT 96; BMI 21.2
--- NOTE | 2024-06-27 08:46 | AM.OFFWIN_ITS ---
Intake Vital Signs 06/27/24 08:46 Height 4 ft 11 in Weight 105 lb BMI 21.2 BP 110/70 Blood Pressure Location Lt brachial Position Sitting Pulse 93 Pulse Source Pulse Oximeter Temp 98.5 F Temp Source Oral Pulse Oximetry (%) 96 Oxygen Delivery Method Room Air Intake Visit Reasons: EP congested, headache, mucus, cough Intake Note: Patient here for headache,congestion,body aches and cough that has been present for about 2 weeks now. Patient Tobacco Use Status: Never used Tobacco Allergies mold Allergy (Intermediate, Verified 06/27/24 08:51) Runny Nose Seasonal Allergies Allergy (Intermediate, Verified 06/27/24 08:51) Runny Nose Do you need a note to return to daycare/school/sports/work: No HPI EP congested, headache, mucus, cough HPI Details This note is constructed using voice recognition software. While every effort has been made to ensure accuracy, dividing machine operator helper errors may have been included. The patient is a 53 year old female who presents to the clinic today with cough, congestion, body aches for the past 10 days. She reports that her has been got sick about a day after she did, but he has already improved. She reports that the cough is the most concerning for her. She denies any shortness of breath, current fevers, though she did have 1 for the 1st couple of days. She tried Mucinex for the 1st couple of days, then DayQuil and NyQuil. She has been taking herbal teas, increased hydration. COUNT INCLUDES THE [facility] Medical History No known health problems Surgical History No pertinent past surgical history Family History Father Dementia No family history of mental disorder Mother Diabetes Lung cancer No family history of mental disorder Social History (Updated 06/26/24 @ 11:20 by Sandor Palacios) Household Members: Spouse and Children Housing: House Alcohol intake: never Patient Tobacco Use Status: Never used Tobacco e-Cigarette/Vaping Use: Never Used service: No Current occupational status: employed Current occupation: [employer] Current occupational exposures/hazards: No Sexual orientation: Straight/Heterosexual Gender identity: Female Cognitive needs: No Hearing needs: No Vision needs: No Review of Systems Const All systems reviewed & are unremarkable except as noted in HPI and below Physical Exam Vital Signs: Last Vital Signs Temp 98.5 F 06/27/24 08:46 Pulse 93 06/27/24 08:46 BP 110/70 06/27/24 08:46 Pulse Ox 96 06/27/24 08:46 Oxygen Delivery Method Room Air 06/27/24 08:46 BMI result Body Mass Index 21.2 Const General: cooperative, healthy appearing, comfortable and no acute distress Orientation/consciousness: patient oriented x3 Limitations: no limitations HEENT Head: Yes normal to inspection Ears: hearing grossly normal bilaterally, external ears normal and TM's normal bilaterally General nose exam: Normal external nose present, Normal nares present and No nasal discharge present Face and sinus: Yes normal facial exam and Yes sinuses nontender Mouth: Normal oral and palatal mucosa present and moist mucous membranes Throat: Yes tonsils normal, Yes uvula midline and Yes posterior oropharynx abnormal (Erythema) Eyes General: appearance normal, both eyes and all related structures Neck Neck: Yes normal visual inspection Resp Effort & Inspection: normal respiratory effort, able to speak in complete sentences, Actively coughing, no respiratory distress, not tachypneic, no tripod positioning and no use of accessory muscles Auscultation: clear to auscultation bilaterally (but tight sounding) Cardio Jugular venous distension: no JVD Rate: regular rate Rhythm: regular rhythm Heart sounds: S1 normal heart sound present, S2 normal heart sound present, no click, no gallops, no murmurs and no rubs Skin General skin exam: no rashes or lesions noted, elasticity normal and turgor normal Neuro General: patient oriented x3 Extrem General: Yes normal to inspection and Yes no clubbing, cyanosis or edema Assessment & Plan Assessment & Plan (1) Upper respiratory infection: Code(s): J06.9 - Acute upper respiratory infection, unspecified Qualifiers: URI type: unspecified URI Qualified Code(s): J06.9 - Acute upper respiratory infection, unspecified Plan: Viral swab obtained to rule out Covid, Influenza, and RSV based on symptoms. Advised mask wearing while symptomatic and quarantine per current CDC guidelines. Reviewed at home support methods including hydration, humidification, vix vapor rub, sinus rinse, and otc treatment options. Discussed treatment with antiviral therapy for covid with paxlovid and with Tamiflu for influenza, including appropriate use and side effects, and need to start medication within 5 day of symptom onset, preferably within 48 hours of symptom onset. Patient is outside of treatment window for antiviral therapy. Benzonatate prescription sent for symptomatic management of cough, as well as prednisone for symptomatic management. Advised follow up with worsening symptoms such as dyspnea at rest, which would require emergent evaluation. Orders: Orders SARS-CoV2/FLU/RSV Today J06.9 - Acute upper respiratory infection, unspecified Medications: New benzonatate 100 mg PO TID 5 days PRN 15 caps 0RF Cough prednisone 40 mg (2 x 20 mg) PO DAILY 5 days 10 tabs 0RF Coding Level of Care Code Est Pt Level 3 (57340) Diagnoses Upper respiratory tract infection, unspecified type J06.9 URI type: unspecified URI
--- OUTSIDE RECORDS SUMMARY | 2024-06-27 08:53 | XMS_ITS | Data Portability ---
Author Organization [facility] Main Office Address [address] [facility] [address] [place] [id number] Care Team Providers Care Human Resources Office Assistant Name Role Phone EVANGELISTAKVNG LOUIS Primary Care Provider [phone] [facility] OTHER Assessment Encounter Date Assessment Date Assessment LastModified by Organization Details LastModified Time 04/29/2014 04/29/2014 43 yo F presents for daily worsening headaches preceded by hot sensation to chest, neck and face. She feels sensation builds over a couple hours before she gets the severe headache. [email or web address] Not available 04/29/2014 13:35:59 Plan of Treatment Reminders Order Date Submit Date Provider Last Modified By Organization Details Last Modified Time Details Appointments None record ed. Lab BMP, serum or plasma 2013 014 YOJANA Not available 4 09:17:57 CBC w/ auto diff 2013 014 YOJANA Not available 4 09:17:58 TSH + free T4, serum 2013 014 YOJANA Not available 4 09:17:57 TSH, serum or plasma 2015 016 Not available 6 04:31:56 CBC w/ auto diff 2015 016 Not available 6 04:31:55 CMP, serum or plasma 2015 016 Not available 6 04:31:57 vitami n D, 25-hyd rashid, total, serum 2015 016 Not available 6 04:31:55 Referral orthop edic referr al - left should er pain x > 6 months , sympto matic treatm ent withou t relief , decrea sed mobili ty and functi oning of left arm 2014 015 elena [facility], [address] [place] [address], [id number], 5 10:55:15 Procedures None record ed. Surgeries None record ed. Imaging electr ocardi ogram 2013 014 [email or web address] In-Office Order, Internal Use Only DO Not Attach Compendium DO Not Attach Compendium, Do Not Delete/merge, [id number] 4 15:59:36 Medication Orders propra nolol ER 60 mg capsul e,24 hr,ext ended releas e [address]/Pharmacy #[id number], [address] [place], [address], 6 15:18:01 sumatr iptan 50 mg tablet [address]/Pharmacy #[id number], [address] [place], [address], 6 15:17:56 Robaxi n-750 750 mg tablet 2014 015 [facility]/Pharmacy #[id number], [address] [place], [address], 5 10:52:46 desoni de 0.05 % topica l ointme nt 2014 015 [facility]/Pharmacy #0488, [address] [place], [address], 5 10:58:14 naprox en 500 mg tablet 2014 015 lázaro [facility]/Pharmacy #0488, [address] [facility] [place], [address], 5 08:20:27 clonaz epam 0.5 mg tablet 2015 016 [id number] [facility]/Pharmacy #0488, [address] [facility] [place], [address], 6 04:31:50 sertra line 50 mg tablet 2015 016 [id number] [facility]/Pharmacy #0488, [address] [facility] [place], [address], 6 04:31:50 Zithro max Z-Stef 250 mg tablet 2015 016 [facility]/Pharmacy #0488, [address] [facility] [place], [address], 6 04:32:13 benzon atate 200 mg capsul e 2015 016 [id number] [facility]/Pharmacy #[id number], [address] [facility] [place], [address], 6 04:32:22 Patient TargetsNo targets recorded. Patient Instructions Encounter Date Encounter Id Patient Instructions Last Modified By Organization Details Last Modified Time 04/29/2014 [id number] To call or retur n for worsening or concerns [email or web address] Not available 04/29/2014 13:24:16 Medications were reviewed at this visit and reconciled. Changes in the active medications are reflected in the current medication list and discussed with patient with instructions for follow up as needed. Printed medication list provided to the patient as part of the visit summary.I have reviewed the note and agree with the assessment and plan of care. malissa Not available 04/29/2014 15:59:36 09/04/2014 [id number] bursitis de hombro: ejercicios - [shoulder bursitis: exercises] lázaro Not available 09/05/2014 08:20:27 bursitis del hombro: instrucciones de cuidado - [shoulder bursitis: care instructions] awychowski Not available 09/05/2014 08:20:28 dolor en el hombro: instrucciones de cuidado - [shoulder pain: care instructions] awychowski Not available 09/05/2014 08:20:27 estiramientos de hombros: ejercicios - [shoulder stretches: exercises] awychowski Not available 09/05/2014 08:20:28 To call or retur n for worsening or concerns jthabet Not available 09/04/2014 13:01:35 Medications were reviewed at this visit and reconciled. Changes in the active medications are reflected in the current medication list and discussed with patient with instructions for follow up as needed. Printed medication list provided to the patient as part of the visit summary. I have reviewed the note and agree with the assessment and plan of care. dimasowski Not available 09/05/2014 08:20:28 05/07/2015 [id number] To call or retur n for worsening or concerns jthabet Not available 05/07/2015 11:12:22 Medications were reviewed at this visit and reconciled. Changes in the active medications are reflected in the current medication list and discussed with patient with instructions for follow up as needed. Printed medication list provided to the patient as part of the visit summary. I have reviewed the note and agree with the assessment and plan of care. karmaafshan Not available 05/07/2015 13:15:10 03/29/2016 [id number] anxiety disorder : care instructions Not available 06/25/2016 04:31:53 I have reviewed the note and agree with the assessment and plan of care. niki Not available 03/29/2016 19:39:36 05/12/2016 [id number] infecci??n de la s v?? respiratorias altas (resfriado): instrucciones de cuidado - [upper respiratory infection (cold): care instructions] 17 Not available 06/25/2016 04:32:18 Call or return for worsening sx. jthabet Not available 05/12/2016 11:37:50 Chart reviewed, agree with above assessment and plan. lázaro Not available 05/12/2016 12:16:51 Reason for Referral Orthopedic Referral for Shou lder pain left shoulder pain x > 6 months, symptomatic treatment without relief, decreased mobility and functioning of left arm Referring Physician: Brian Griffiths, Family Medicine, Encounter Date: 05/07/2015 Results Created Date Observation Date Name Description Value Unit Range Abnormal Flag Note LastModifiedBy Organization Detail LastModifiedTime 04/29/2014 elect opal montaguegr am Rate & Rhythm Normal sinus rhythm 88 Not Available In-Office Order Internal Use Only DO Not Attach Compendium DO Not Attach Compendium, Do Not Delete/merge, [id number] 04/29/2014 13:29:19 04/29/20 14 04/29/2014 thyro id panel free T4 1.12 NG/dL (0.70- 1.80) Not Available [facility] [address] [place], [address], 05/19/2014 15:01:25 04/29/20 14 04/29/2014 thyro id panel TSH 2.05 mIU/m L (0.4-4 .0) Not Available [facility] [address] [place], [address], 05/19/2014 15:01:25 04/29/20 14 04/29/2014 BMP, serum or plasm a glucose 83 mg/dL (70-99 ) Not Available [facility] [address] [place], [address], 05/19/2014 15:01:23 04/29/20 14 04/29/2014 BMP, serum or plasm a BUN 13 mg/dL (6-20) Not Available [facility] [address] [place], [address], 05/19/2014 15:01:23 04/29/20 14 04/29/2014 BMP, serum or plasm a creatinine 0.5 mg/dL (0.5-1 .0) Not Available [facility] [address] [place], [address], 05/19/2014 15:01:23 04/29/20 14 04/29/2014 BMP, serum or plasm a sodium 140 mmol/ L (133-1 45) Not Available [facility] [address] [place], [address], 05/19/2014 15:01:23 04/29/20 14 04/29/2014 BMP, serum or plasm a potassium 4.7 mmol/ L (3.6-5 .2) Not Available [facility] [address] [place], [address], 05/19/2014 15:01:23 04/29/20 14 04/29/2014 BMP, serum or plasm a chloride 102 mmol/ L (98-10 7) Not Available [facility] [address] [place], [address], 05/19/2014 15:01:23 04/29/20 14 04/29/2014 BMP, serum or plasm a bicarbonate 30 mmol/ L (22-29 ) high Not Available [facility] [address] [place], [address], 05/19/2014 15:01:23 04/29/20 14 04/29/2014 BMP, serum or plasm a anion gap 8 (4-17) Not Available [facility] [address] [place], [address], 05/19/2014 15:01:23 04/29/20 14 04/29/2014 BMP, serum or plasm a calcium 10.3 mg/dL (8.6-1 0.5) AGUILA MARTINEZ CALCI UM LEVEL S SHOUL D BE REPEA MICHELLE ON A SEPAR ATE DAY CLINI RANDALL INDIC ATED. Not Available [facility] [address] [place], [address], 05/19/2014 15:01:23 04/29/20 14 04/29/2014 BMP, serum or plasm a est GFR non >60 mL/mi n/1.7 3_M2 THE MDRD STUDY 'S ESTIM ATED GFR EQUAT ION HAS NOT BEEN VALID ATED IN CHILD SHAINA (<18 YRS), PREGN ANT WOMEN , THE ELDER LY (AGE >70 YRS), RACIA L OR ETHNI C SUBGR OUPS OTHER THAN CAUCA SIANS AND AFRIC AN AMERI CANS. Not Available [facility] [address] [place], [address], 05/19/2014 15:01:23 04/29/20 14 04/29/2014 BMP, serum or plasm a est GFR >60 mL/mi n/1.7 3_M2 THE MDRD STUDY 'S ESTIM ATED GFR EQUAT ION HAS NOT BEEN VALID ATED IN CHILD SHAINA (<18 YRS), PREGN ANT WOMEN , THE ELDER LY (AGE >70 YRS), RACIA L OR ETHNI C SUBGR OUPS OTHER THAN CAUCA SIANS AND AFRIC AN AMERI CANS. Not Available [facility] [address] [place], [address], 05/19/2014 15:01:23 04/29/20 14 04/29/2014 CBC w/ auto diff WBC 4.7 K/mm3 (4.0-1 1.0) Not Available [facility] [address] [place], [address], 05/19/2014 15:00:45 04/29/20 14 04/29/2014 CBC w/ auto diff RBC 4.37 M/mm3 (4.20- 5.40) Not Available [facility] [address] [place], [address], 05/19/2014 15:00:45 04/29/20 14 04/29/2014 CBC w/ auto diff HGB 13.1 gm/dL (12.0- 16.0) Not Available [facility] [address] [place], [address], 05/19/2014 15:00:45 04/29/20 14 04/29/2014 CBC w/ auto diff HCT 39.6 % (37.0- 47.0) Not Available [facility] [address] [place], [address], 05/19/2014 15:00:45 04/29/20 14 04/29/2014 CBC w/ auto diff MCV 90.6 fL (80.0- 100.0) Not Available [facility] [address] [place], [address], 05/19/2014 15:00:45 04/29/20 14 04/29/2014 CBC w/ auto diff MCH 30.0 pg (27.0- 34.0) Not Available [facility] [address] [place], [address], 05/19/2014 15:00:45 04/29/20 14 04/29/2014 CBC w/ auto diff MCHC 33.1 % (33.0- 37.0) Not Available [facility] [address] [place], [address], 05/19/2014 15:00:45 04/29/20 14 04/29/2014 CBC w/ auto diff plt 272 K/mm3 (150-4 60) Not Available [facility] [address] [place], [address], 05/19/2014 15:00:45 04/29/20 14 04/29/2014 CBC w/ auto diff RDW-SD 39.8 fL (<47.0 ) Not Available [facility] [address], [address], 05/19/2014 15:00:45 04/29/20 14 04/29/2014 CBC w/ auto diff MPV 9.8 fL (9.4-1 2.4) Not Available [facility] [address] [place], [address], 05/19/2014 15:00:45 04/29/20 14 04/29/2014 CBC w/ auto diff automated NRBC 0.0 #/100 _WBC' s Not Available [facility] [address] [place], [address], 05/19/2014 15:00:45 04/29/20 14 04/29/2014 CBC w/ auto diff abs. NRBC 0.0 K/mm3 Not Available [facility] [address] [place], [address], 05/19/2014 15:00:45 04/29/20 14 04/29/2014 CBC w/ auto diff neut # 2.3 K/mm3 (1.3-7 .0) Not Available [facility] [address] [place], [address], 05/19/2014 15:00:45 04/29/20 14 04/29/2014 CBC w/ auto diff lymph # 1.9 K/mm3 (0.8-3 .1) Not Available [facility] [address] [place], [address], 05/19/2014 15:00:45 04/29/20 14 04/29/2014 CBC w/ auto diff mono# 0.4 K/mm3 (0.4-0 .9) Not Available [facility] [address] [place], [address], 05/19/2014 15:00:45 04/29/20 14 04/29/2014 CBC w/ auto diff eo # 0.0 K/mm3 (0.0-0 .4) Not Available [facility] [address] [place], [address], 05/19/2014 15:00:45 04/29/20 14 04/29/2014 CBC w/ auto diff baso # 0.0 K/mm3 (0.0-0 .1) Not Available [facility] [address] [place], [address], 05/19/2014 15:00:45 04/29/20 14 04/29/2014 CBC w/ auto diff abs. imm gran 0.0 K/mm3 Not Available [facility] [address] [place], [address], 05/19/2014 15:00:45 04/29/20 14 04/29/2014 CBC w/ auto diff neut 49.0 % (44-76 ) Not Available [facility] [address] [place], [address], 05/19/2014 15:00:45 04/29/20 14 04/29/2014 CBC w/ auto diff lymph 40.3 % (15-43 ) Not Available [facility] [address] [place], [address], 05/19/2014 15:00:45 04/29/20 14 04/29/2014 CBC w/ auto diff monocyte 8.9 % (4.5-1 0.5) Not Available [facility] [address] [place], [address], 05/19/2014 15:00:45 04/29/20 14 04/29/2014 CBC w/ auto diff eo 0.8 % (0-6) Not Available [facility] [address] [place], [address], 05/19/2014 15:00:45 04/29/20 14 04/29/2014 CBC w/ auto diff baso 0.6 % (0-2) Not Available [facility] [address] [place], [address], 05/19/2014 15:00:45 04/29/20 14 04/29/2014 CBC w/ auto diff imm gran 0.4 % (0.0-0 .6) Not Available [facility] [address] [place], [address], 05/19/2014 15:00:45 03/29/20 16 03/29/2016 CBC w/ auto diff WBC 5.9 K/mm3 (4.0-1 1.0) Not Available [facility] [address] [place], [address], 03/29/2016 19:38:18 03/29/20 16 03/29/2016 CBC w/ auto diff RBC 4.39 M/mm3 (4.20- 5.40) Not Available [facility] [address] [place], [address], 03/29/2016 19:38:18 03/29/20 16 03/29/2016 CBC w/ auto diff HGB 12.8 gm/dL (12.0- 16.0) Not Available [facility] [address] [place], [address], 03/29/2016 19:38:18 03/29/20 16 03/29/2016 CBC w/ auto diff HCT 40.4 % (37.0- 47.0) Not Available [facility] [address] [place], [address], 03/29/2016 19:38:18 03/29/20 16 03/29/2016 CBC w/ auto diff MCV 92.0 fL (80.0- 100.0) Not Available [facility] [address] [place], [address], 03/29/2016 19:38:18 03/29/20 16 03/29/2016 CBC w/ auto diff MCH 29.2 pg (27.0- 34.0) Not Available [facility] [address] [place], [address], 03/29/2016 19:38:18 03/29/20 16 03/29/2016 CBC w/ auto diff MCHC 31.7 g/dL (33.0- 37.0) low Not Available [facility] [address] [place], [address], 03/29/2016 19:38:18 03/29/20 16 03/29/2016 CBC w/ auto diff plt 278 K/mm3 (150-4 60) Not Available [facility] [address] [place], [address], 03/29/2016 19:38:18 03/29/20 16 03/29/2016 CBC w/ auto diff RDW-SD 42.5 fL (<47.0 ) Not Available [facility] [address] [place], [address], 03/29/2016 19:38:18 03/29/20 16 03/29/2016 CBC w/ auto diff MPV 9.8 fL (9.4-1 2.4) Not Available [facility] [address] [place], [address], 03/29/2016 19:38:18 03/29/20 16 03/29/2016 CBC w/ auto diff automated NRBC 0.0 #/100 _WBC' s Not Available [facility] [address] [place], [address], 03/29/2016 19:38:18 03/29/20 16 03/29/2016 CBC w/ auto diff abs. NRBC 0.0 K/mm3 Not Available [facility] [address] [place], [address], 03/29/2016 19:38:18 03/29/20 16 03/29/2016 CBC w/ auto diff neut # 2.8 K/mm3 (1.3-7 .0) [facility] [address] [place], [address], 03/29/2016 19:38:18 03/29/20 16 03/29/2016 CBC w/ auto diff lymph # 2.6 K/mm3 (0.8-3 .1) Not Available [facility] [address] [place], [address], 03/29/2016 19:38:18 03/29/20 16 03/29/2016 CBC w/ auto diff mono# 0.5 K/mm3 (0.4-0 .9) Not Available [facility] [address] [place], [address], 03/29/2016 19:38:18 03/29/20 16 03/29/2016 CBC w/ auto diff eo # 0.0 K/mm3 (0.0-0 .4) Not Available [facility] [address] [place], [address], 03/29/2016 19:38:18 03/29/20 16 03/29/2016 CBC w/ auto diff baso # 0.0 K/mm3 (0.0-0 .1) Not Available [facility] [address] [place], [address], 03/29/2016 19:38:18 03/29/20 16 03/29/2016 CBC w/ auto diff abs. imm gran 0.0 K/mm3 Not Available [facility] [address] [place], [address], 03/29/2016 19:38:18 03/29/20 16 03/29/2016 CBC w/ auto diff neut 46.9 % (44-76 ) Not Available [facility] [address] [place], [address], 03/29/2016 19:38:18 03/29/20 16 03/29/2016 CBC w/ auto diff lymph 43.8 % (15-43 ) high Not Available [facility] [address] [place], [address], 03/29/2016 19:38:18 03/29/20 16 03/29/2016 CBC w/ auto diff monocyte 7.7 % (4.5-1 0.5) Not Available [facility] [address] [place], [address], 03/29/2016 19:38:18 03/29/20 16 03/29/2016 CBC w/ auto diff eo 0.7 % (0-6) Not Available [facility] [address] [place], [address], 03/29/2016 19:38:18 03/29/20 16 03/29/2016 CBC w/ auto diff baso 0.7 % (0-2) Not Available [facility] [address] [place], [address], 03/29/2016 19:38:18 03/29/20 16 03/29/2016 CBC w/ auto diff imm gran 0.2 % (0.0-0 .6) Not Available [facility] [address] [place], [address], 03/29/2016 19:38:18 03/29/20 16 03/29/2016 CMP, serum or plasm a glucose 94 mg/dL (70-99 ) Not Available [facility] [address] [place], [address], 03/29/2016 21:45:16 03/29/20 16 03/29/2016 CMP, serum or plasm a BUN 13 mg/dL (6-20) Not Available [facility] [address] [place], [address], 03/29/2016 21:45:16 03/29/20 16 03/29/2016 CMP, serum or plasm a creatinine 0.5 mg/dL (0.5-1 .0) Not Available [facility] [address] [place], [address], 03/29/2016 21:45:16 03/29/20 16 03/29/2016 CMP, serum or plasm a sodium 136 mmol/ L (133-1 45) Not Available [facility] [address] [place], [address], 03/29/2016 21:45:16 03/29/2003/29/2016 CMP, serum or plasm a potassium 4.9 mmol/ L (3.6-5 .2) Not Available [facility] [address] [place], [address], 03/29/2016 21:45:16 03/29/2003/29/2016 CMP, serum or plasm a chloride 101 mmol/ L (98-10 7) Not Available [facility] [address] [place], [address], 03/29/2016 21:45:03/29/2003/29/2016 CMP, serum or plasm a bicarbonate 24 mmol/ L (22-29 ) Not Available [facility] [address] [place], [address], 03/29/2016 21:45:16 03/29/20 16 03/29/2016 CMP, serum or plasm a anion gap 11 (4-17) Not Available [facility] [address] [place], [address], 03/29/2016 21:45:16 03/29/20 16 03/29/2016 CMP, serum or plasm a albumin 4.8 gm/dL (3.4-4 .8) Not Available [facility] [address] [place], [address], 03/29/2016 21:45:16 03/29/20 16 03/29/2016 CMP, serum or plasm a calcium 9.4 mg/dL (8.6-1 0.5) Not Available [facility] [address] [place], [address], 03/29/2016 21:45:16 03/29/2003/29/2016 CMP, serum or plasm a bilirubin,to brennen 0.4 mg/dL (0-1.2 ) Not Available [facility] [address] [place], [address], 03/29/2016 21:45:16 03/29/2003/29/2016 CMP, serum or plasm a total protein 7.8 gm/dL (6.2-8 .2) Not Available [facility] [address] [place], [address], 03/29/2016 21:45:16 03/29/2003/29/2016 CMP, serum or plasm a Ag ratio 1.6 Not Available [facility] [address] [place], [address], 03/29/2016 21:45:16 03/29/2003/29/2016 CMP, serum or plasm a AST 29 U/L (0-32) Not Available [facility] [address] [place], [address], 03/29/2016 21:45:16 03/29/20 16 03/29/2016 CMP, serum or plasm a alk phos 126 U/L (35-10 4) high Not Available [facility] [address] [place], [address], 03/29/2016 21:45:16 03/29/2003/29/2016 CMP, serum or plasm a ALT 53 U/L (0-31) high Not Available [facility] [address] [place], [address], 03/29/2016 21:45:16 03/29/2003/29/2016 CMP, serum or plasm a est GFR non 117 mL/mi n/1.7 3_M2 Effec tive Augus t 2015, [facility] have salguero ed the equat ion used to calcu late creat inine based estim ated glome rular filtr ation rate (eGFR ) from the Modif icati on of Diet in Renal Disea se (MDRD ) to the Chron ic Kidne y Disea se Epide miolo gy Colla borat ion (CKD- EPI). With the use of CKD-E PI equat ion, eGFR value s over 60 mL/mi n/1.7 3 m2 are repor michelle and eGFR is calcu lated for patie nts > EQ 18 years old. The CKD-E PI creat inine equat ion has not been valid ated in child shaina (<18 years ), pregn ant women , in some racia l or ethni c subgr oups other than Cauca sians and Afric an Ameri cans. Not Available [facility] [address], [place], [address], 03/29/2016 21:45:16 03/29/2003/29/2016 CMP, serum or plasm a est GFR 135 mL/mi n/1.7 3_M2 Effec tive Augus t 2015, [facility] have salguero ed the equat ion used to calcu late creat inine based estim ated glome rular filtr ation rate (eGFR ) from the Modif icati on of Diet in Renal Disea se (MDRD ) to the Chron ic Kidne y Disea se Epide miolo gy Colla borat ion (CKD- EPI). With the use of CKD-E PI equat ion, eGFR value s over 60 mL/mi n/1.7 3 m2 are repor michelle and eGFR is calcu lated for patie nts > EQ 18 years old. The CKD-E PI creat inine equat ion has not been valid ated in child shaina (<18 years ), pregn ant women , in some racia l or ethni c subgr oups other than Cauca sians and Afric an Ameri cans. Not Available [facility] [address] [place], [address], 03/29/2016 21:45:16 03/29/20 16 03/29/2016 TSH, serum or plasm a TSH 2.35 mIU/m L (0.40- 4.00) Not Available [facility] [address] [place], [address], 03/29/2016 21:51:19 03/29/20 16 03/30/2016 vitam in D, 25-hy droxy , total , serum 25OH vitamin D 18.1 NG/mL (20-50 ) low SERUM 25OHD : 12 TO 19 NG/ML : AT RISK OF VITAM IN D INADE QUACY . Refer ence: [facility] Data Brief : No.59 September: Vitam in D Statu s: Unite d State s: 2000- 2005 Not Available [facility] [address] [place], [address], 03/30/2016 10:46:50 04/19/20 16 04/19/2016 hepat ic funct ion panel , serum bilirubin,to brennen 0.4 mg/dL (0-1.2 ) Not Available [facility] [address] [place], [address], 04/19/2016 20:15:15 04/19/20 16 04/19/2016 hepat ic funct ion panel , serum bilirubin, direct 0.1 mg/dL (0-0.3 ) SPECI MEN SLIGH TLY HEMOL YZED, RESUL TS MAY BE FALSE LY LOW. Not Available [facility] [address] [place], [address], 04/19/2016 20:15:15 04/19/20 16 04/19/2016 hepat ic funct ion panel , serum indirect bilirubin 0.3 mg/dL (0.0-0 .7) Not Available [facility] [address] [place], [address], 04/19/2016 20:15:15 04/19/20 16 04/19/2016 hepat ic funct ion panel , serum albumin 4.6 gm/dL (3.4-4 .8) Not Available [facility] [address] [place], [address], 04/19/2016 20:15:15 04/19/20 16 04/19/2016 hepat ic funct ion panel , serum AST 17 U/L (0-32) Not Available [facility] [address] [place], [address], 04/19/2016 20:15:15 04/19/20 16 04/19/2016 hepat ic funct ion panel , serum ALT 16 U/L (0-31) Not Available [facility] [address] [place], [address], 04/19/2016 20:15:15 04/19/20 16 04/19/2016 hepat ic funct ion panel , serum alk phos 95 U/L (35-10 4) Not Available [facility] [address] [place], [address], 04/19/2016 20:15:15 04/19/20 16 04/19/2016 hepat ic funct ion panel , serum total protein 7.2 gm/dL (6.2-8 .2) Not Available [facility] [address] [place], [address], 04/19/2016 20:15:15 04/19/20 16 04/20/2016 HBsAg (hepa titis B surfa ce Ag), serum hep. B surf. Ag NEGAT DILIP REFER ENCE RANGE : NEGAT DILIP Not Available [facility] [address] [place], [address], 04/20/2016 10:01:14 04/19/20 16 04/20/2016 hepat itis C virus Ab, serum anti-hepatit is C NEGAT DILIP REFER ENCE RANGE : NEGAT DILIP Not Available [facility] [address] [place], [address], 04/20/2016 10:25:43 04/30/20 14 elect rocar diogr am No observ ation record ed. BARCODE Not Available 2013 09:57:49 05/26/20 14 05/01/2013 CT, head, w/o contr ast Examin ation: Noncon trast head CT perfor med on 2012. Histor y: Headac he. Techni que and findin gs: Contig uous 4.8 mm axial images were obtain ed from the skullb ase throug h the vertex withou t intrav enous contra st. There are no prior simila r studie s curren tly availa ble for direct compar kristen. The visual ized sinuse s are free from diseas e. The ventri cular system and subara chnoid spaces are within normal limits . There is no intrac ranial hemorr anselmo, mass effect or midlin e shift. No intra or extra- axial fluid collec tions are identi fied. The osseou s struct ures are unrema rkable . Impres nickie: There is no acute intrac ranial abnorm ality. Dictat ed By: Salma Reed MD Dictat ed Date/T guido: 8:00 am Review ed By: Salma Reed MD Signed By: Salma Reed MD Signed Date/T guido: 8:00 am Transc ribed By: ENE Transc ribed Date/T guido: 8:00 am Patien t Class: Outpat ient [email or web address] [facility] [address] [place], [id number], 03/29/2016 15:11:38 07/01/20 15 05/27/2015 imagi ng/di agnos tic resul t No observ ation record ed. [email or web address] Not Available 07/15 06:07:57 Result Notes None recorded. Problems Name Problem SNOMED Code Status Onset Date Resolution Date Notes Provider Name and Address Organization Details Recorded Time Allergic rhinitis 77601130 Completed 201202/17/2014 RECORDED 09/03/19 13 2:19PM BY DIANE GHOSH MA, ANNOTATI ON/ADDEN DUM Not Available [facility] 4 05:24:01 Patient status finding [id number] Completed 201202/17/2014 RECORDED 09/03/19 13 2:19PM BY DIANE GHOSH MA, ANNOTATI ON/ADDEN DUM Not Available [facility] 4 05:24:01 Bronchit is 17329675 Completed 201302/17/2014 RECORDED 11/16/19 14 4:04PM BY EDD KINGSLEY MA, ANNOTATI ON/ADDEN DUM Not Available [facility] 4 05:24:01 Chest pain 35613841 Completed 201202/17/2014 IMPRESSI ON: PPI AFFORDIN G RELIEF SO LIKELY GERD RELATED. WILL REASSESS WITH CONSITEN T USE AND INVETIGA TE FURTHER IF PERSISTA NT/WORSE . VIT D DEFICIEN CY ALSO POSSIBLE .; RECORDED 09/03/19 13 2:19PM BY DIANE GHOSH MA, ANNOTATI ON/ADDEN DUM Not Available [facility] 4 05:24:01 Cough 49107017 Completed 201302/17/2014 RECORDED 11/16/19 14 4:04PM BY EDD KINGSLEY MA, ANNOTATI ON/ADDEN DUM Not Available [facility] 4 05:24:01 Dysfunct ion of eustachi an tube 59633134 Completed 201202/17/2014 IMPRESSI ON: LIKELY ALLERGY RELATED. SALINE NASAL IRRIGATI ON ADVISED WELL. CALL INB/WORS E.; RECORDED 04/30/20 13 1:20PM BY TYSON HOWELL MA, ANNOTATI ON/ADDEN DUM Not Available [facility] 4 05:24:02 Adult health examinat ion Completed 201202/17/2014 IMPRESSI ON: IMMUNIZA TION STATUS UTD (WILL VERIFY WITH PRIOR PCP RECORDS WHEN AVAILABL E) AND SCREEN BASED ON RISK FACTORS. REGULAR DENTAL CARE AND SEATBELT USE ADVISED. DISTRACT ED DRIVING DONNA Muir ROUTINE CRAP SHOOTER CARE UTD, WILL REQUEST RECORDS FOR CONFIRMA TION; RECORDED 09/03/19 13 2:19PM BY DIANE GHOSH MA, NIGELATI ON/ADDEN DUM Not Available [facility] 4 05:24:02 Screenin g for malignan t neoplasm of breast Completed 201202/17/2014 RECORDED 12/20/19 13 8:56AM BY DIANE GHOSH MA, NIGELATI ON/ADDEN DUM Not Available [facility] 4 05:24:02 Shoulder joint pain 591325940 Active Brian Griffiths, [facility] [address] [facility] [address], [facility] [address] , [facility] 4 13:32:27 Palpitat ions 98635146 Completed 201202/17/2014 IMPRESSI ON: LIEKLY STRESS RELATED. NOT WORSE WITH EXERTION ; RECORDED 07/02/20 13 10:03AM BY EDD KINGSLEY MA, ANNOTATI ON/ADDEN DUM Not Available [facility] 4 05:24:02 Immuniza tion refused Completed 201202/17/2014 RECORDED 09/03/19 13 2:19PM BY DIANE GHOSH MA, ANNOTATI ON/ADDEN DUM Not Available [facility] 4 05:24:02 Acute upper respirat ory infectio n 54466002 Completed 201302/17/2014 RECORDED 01/02/20 14 10:18AM BY EDD KINGSLEY MA, ANNOTATI ON/ADDEN DUM Not Available [facility] 4 05:24:02 Vitamin D deficien cy 28552741 Completed 201202/17/2014 IMPRESSI ON: WILL REASSESS WITH HIGH DIOSE SUPPLEME NTATION AND ADJUST DAILY DOSE TO FIORELLA AND MAINTAIN A LEVEL 20-50.; RECORDED 04/30/20 13 1:20PM BY TYSON HOWELL MA, ANNOTATI ON/ADDEN DUM Not Available [facility] 4 05:24:02 Palpitat ions 05091336 Active Schuyler akbar, [facility] 4 15:59:36 Shoulder pain 33632666 Active Kvng Wang MD [address], [place], [address] , [facility] 5 13:15:10 Contact dermatit is 32983037 Active Kvng Wang MD [address], [place], [address] , [facility] 5 08:20:27 Neck pain 18285261 Active Kvng Wang MD [address], [place], [address] , [facility] 5 08:20:27 Adhesive capsulit is of shoulder 901868878 Active Kvng Wang MD [address], [place], [address] , [facility] 5 19:43:17 Allergic rhinitis 31387494 Completed 201201/21/2014 RECORDED 09/03/19 13 2:19PM BY DIANE GHOSH MA, ANNOTATI ON/ADDEN DUM Not Available [facility] 4 14:05:00 Patient status finding [id number] Completed 201201/21/2014 RECORDED 09/03/19 13 2:19PM BY DIANE GHOSH MA, ANNOTATI ON/ADDEN DUM Not Available [facility] 4 14:05:00 Bronchit is 00059105 Completed 201301/21/2014 RECORDED 11/16/19 14 4:04PM BY EDD KINGSLEY MA, ANNOTATI ON/ADDEN DUM Not Available [facility] 4 14:05:00 Chest pain 30747738 Completed 201201/21/2014 IMPRESSI ON: PPI AFFORDIN G RELIEF SO LIKELY GERD RELATED. WILL REASSESS WITH CONSITEN T USE AND INVETIGA TE FURTHER IF PERSISTA NT/WORSE . VIT D DEFICIEN CY ALSO POSSIBLE .; RECORDED 09/03/19 13 2:19PM BY DIANE GHOSH MA, ANNOTATI ON/ADDEN DUM Not Available [facility] 4 14:05:01 Cough 68794977 Completed 201301/21/2014 RECORDED 11/16/19 14 4:04PM BY EDD KINGSLEY MA, ANNOTATI ON/ADDEN DUM Not Available [facility] 4 14:05:01 Allergic rhinitis 17292004 Active HILDA Buckley, [facility] 5 11:05:40 Dysfunct ion of eustachi an tube 89788118 Completed 201201/21/2014 IMPRESSI ON: LIKELY ALLERGY RELATED. SALINE NASAL IRRIGATI ON ADVISED WELL. CALL INB/WORS E.; RECORDED 04/30/20 13 1:20PM BY TYSON HOWELL MA, ANNOTATI ON/ADDEN DUM Not Available [facility] 4 14:05:01 Adult health examinat ion Completed 201201/21/2014 IMPRESSI ON: IMMUNIZA TION STATUS UTD (WILL VERIFY WITH PRIOR PCP RECORDS WHEN AVAILABL E) AND SCREEN BASED ON RISK FACTORS. REGULAR DENTAL CARE AND SEATBELT USE ADVISED. DISTRACT ED DRIVING DISCUSSLeanne D. ROUTINE CRAP SHOOTER CARE UTD, WILL REQUEST RECORDS FOR CONFIRMA TION; RECORDED 09/03/19 13 2:19PM BY DIANE GHOSH MA, ANNOTATI ON/ADDEN DUM Not Available [facility] 4 14:05:01 Gastroes ophageal reflux disease 860416039 Active BRYCE dAams [address] [address], [place], [address] , [facility] 4 13:32:27 Headache 43705169 Active BRYCE Adams [address] [address], [place], [address] , [facility] 4 13:32:27 Menopaus al symptom 24345125 Active Brian Griffiths, [facility] [address] [address], [place], [address] , [facility] 4 13:32:27 Pure hypercho lesterol emia 854788341 Active Brian Griffiths, [facility] [address] [address], [place], [address] , [facility] 4 13:32:27 Screenin g for malignan t neoplasm of breast Completed 201201/21/2014 RECORDED 12/20/19 13 8:56AM BY DIANE GHOSH MA, GABE ON/ADDEN DUM Not Available [facility] 4 14:05:01 Migraine 42391501 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 NOT WORSE WITH EXERTION ; RECORDED 07/02/20 13 10:03AM BY EDD KINGSLEY MA, ANNOTATI ON/ADDEN DUM Not Available [facility] 4 14:05:02 Immuniza tion refused Completed 201201/21/2014 RECORDED 09/03/19 13 2:19PM BY DIANE GHOSH MA, GABE ON/ADDEN DUM Not Available [facility] 4 14:05:02 Acute upper respirat ory infectio n 69339720 Active BRYCE Adams [address] [facility] [address], [facility] [place], [address] , [facility] 4 13:32:27 Vitamin D deficien cy 05929103 Completed 201201/21/2014 IMPRESSI ON: WILL REASSESS WITH HIGH DIOSE SUPPLEME NTATION AND ADJUST DAILY DOSE TO FIORELLA AND MAINTAIN A LEVEL 20-50.; RECORDED 04/30/20 13 1:20PM BY TYSON HOWELL MA, ANNOTATI ON/ADDEN DUM Not Available [facility] 4 14:05:02 Problem Notes None recorded. Procedures Surgical History None recorded. Imaging Results Imaging Date Name Status LastModified by Organization Details LastModified Time 04/30/2014 electrocardiogram completed BARCODE Informa tion not available 04/30/2014 09:57:49 05/01/2013 CT, head, w/o contrast completed [email or web address] [facility] [address] [place], [id number], 03/29/2016 15:11:38 05/27/2015 imaging/diagnostic result completed [email or web address] Information not available 07/15/2015 06:07:57 Procedure Notes None recorded. Medical Equipment None Reported. Allergies No known drug allergies Medications Name Sig Start Date Stop Date Status Note LastModified by Organization Details LastModified Time methocarb autumn 500 mg tablet THREE TIMES DAILY, NEEDED 01/11 completed RECORDED 01/22/20 14 9:11PM BY BRIAN GRIFFITHS PA-C, MEDICATI ON AUTO-KAY CTIVATIO N; Not Available Not Available Not Available nabumeton e 750 mg tablet TWO TIMES DAILY, NEEDED HEADACHE 05/30 completed RECORDED 07/02/20 13 7:02AM BY BEKA EDWARD, MEDICATI ON AUTO-KAY CTIVATIO N; Not Available Not Available Not Available fluconazo le 150 mg tablet active Not Available Not Available Not Available benzonata te 200 mg capsule Take 1 capsule 3 times a day by oral route as needed for 10 days. 2015 active Not Available Not Available Not Avai lable ibuprofen 200 mg capsule PRN MIGRAINE active RECORDED 01/02/20 14 10:18AM BY EDD KINGSLEY MA, OFFICE VISIT; Not Available Not Available Not Available phenazopy ridine 200 mg tablet active Not Available Not Available Not Available prednison e 20 mg tablet DAILY 07/07 completed RECORDED 11/16/19 14 3:34PM BY SCHUYLER PANDEY MD, MEDICATI ON AUTO-KAY CTIVATIO N; Not Available Not Available Not Available clonazepa m 0.5 mg tablet Take 1 tablet every day by oral route for 14 days. active Not Available Not Available No t Available propranol ol ER 60 mg capsule,2 4 hr,extend ed release Take 1 capsule every day by oral route at bedtime for 30 days. 03/29 completed Not Available Not Available Not Available Zithromax Z-Stef 250 mg tablet TAKE 2 TABLETS (500 MG) BY ORAL ROUTE ONCE DAILY FOR 1 DAY THEN 1 TABLET (250 MG) BY ORAL ROUTE ONCE DAILY FOR 4 DAYS 2015 active Not Available Not Available Not Avai lable sumatript an 50 mg tablet Take 1 tablet twice a day by oral route as needed for 30 days. 03/29 completed Not Available Not Available Not Available nystatin- triamcino lone 100,000 unit/gram -0.1 % topical ointment active Not Available Not Available Not Available Fluticaso ne Propionat e (Inhal) 50 mcg/BLIST inhl powd EACH NOSTRIL QD PRN 03/29 completed RECORDED 11/16/19 14 4:46PM BY BRIAN GRIFFITHS PA-C, OFFICE VISIT; Not Available Not Available Not Available methocarb autumn 750 mg tablet Take 1 tablet 3 times a day by oral route as directed for 10 days. active Not Available Not Available No t Available desonide 0.05 % topical ointment APPLY SPARINGL Y AND RUB GENTLY INTO THE AFFECTED AREA(S) BY TOPICAL ROUTE 2 TIMES PER DAY x 7 DAYS active Not Available Not Available No t Available benzonata te 100 mg capsule FOUR TIMES DAILY 11/29 completed RECORDED 01/02/20 14 10:17AM BY BRIAN GRIFFITHS PA-C, MEDICATI ON AUTO-KAY CTIVATIO N; Not Available Not Available Not Available fluticaso ne propionat e 50 mcg/actua tion nasal spray,rossana pension Inhale 1 spray every day by intranas al route for 30 days. active Not Available Not Available No t Available sertralin e 50 mg tablet Take 1 tablet every day by oral route for 30 days. active Not Available Not Available No t Available naproxen 500 mg tablet Take 1 tablet twice a day by oral route as directed for 30 days. active Not Available Not Available No t Available albuterol (refill) 90 mcg/actua tion aerosol inhaler EVERY FOUR HOURS, NEEDED 03/29 completed RECORDED 01/02/20 14 10:18AM BY EDD KINGSLEY MA, OFFICE VISIT; Not Available Not Available Not Available Prilosec OTC 20 mg tablet,de layed release PRN 09/06 completed RECORDED 09/11/19 13 6:12AM BY KVNG Castañeda MD, MEDICATI ON AUTO-KAY CTIVATIO N; Not Available Not Available Not Available 07/29 (28) 1 mg-20 mcg (21)/75 mg (7) tablet DAILY 04/30 completed RECORDED 04/30/20 13 1:50PM BY TYSON HOWELL MA, OFFICE VISIT; Not Available Not Available Not Available ProAir HFA 90 mcg/actua tion aerosol inhaler active Not Available Not Available Not Available cholecalc iferol (vitamin D3) 1,250 mcg (50,000 unit) capsule ONCE A WEEK 01/21 completed RECORDED 01/22/20 13 6:26AM BY KVNG Castañeda MD, ANNOTATI ON/ADDEN DUM; Not Available Not Available Not Available cholecalc iferol (vitamin D3) 50 mcg (2,000 unit) capsule Take 1 capsule every day by oral route. 2012 active OTC Not Available Not Available Not Avai lable Vitals Date Recorded Oxygen saturation Oxygen saturation in Arterial blood by Pulse oximetry Body weight Heart rate Body mass index (BMI) Body height Body temperature Systolic blood pressure Diastolic blood pressure Provider Name and Address Organization Details Last Updated DateTime 4 99 % 99 % 74965.7 72415 g 95 /min 19.8 kg/m2 149.86 cm 98.1 [degF] 106 mm[Hg] 75 mm[Hg] Netta Martinez MA [facility] 4 13:00:06 Date Recorded Body height Oxygen saturation Oxygen saturation in Arterial blood by Pulse oximetry Body weight Heart rate Body mass index (BMI) Body temperature Systolic blood pressure Diastolic blood pressure Provider Name and Address Organization Details Last Updated DateTime 5 149.86 cm 97 % 97 % 78531.2 86818 g 83 /min 19.9 kg/m2 97.8 [degF] 106 mm[Hg] 64 mm[Hg] Osmin Shipman [facility] 5 12:58:22 Date Recorded Body height Oxygen saturation Oxygen saturation in Arterial blood by Pulse oximetry Heart rate Body temperature Body weight Body mass index (BMI) Systolic blood pressure Diastolic blood pressure Provider Name and Address Organization Details Last Updated DateTime 5 149.86 cm 97 % 97 % 80 /min 97.8 [degF] 95795.6 4463 g 20 kg/m2 102 mm[Hg] 58 mm[Hg] Reyna moreau MA [facility] 5 10:56:53 Date Recorded Body height Oxygen saturation Oxygen saturation in Arterial blood by Pulse oximetry Heart rate Body weight Body mass index (BMI) Body temperature Systolic blood pressure Diastolic blood pressure Provider Name and Address Organization Details Last Updated DateTime 6 149.86 cm 100 % 100 % 86 /min 20420.7 4 g 19.6 kg/m2 98.3 [degF] 92 mm[Hg] 61 mm[Hg] Netta Martinez MA [facility] 6 15:16:06 Date Recorded Body height Body weight Body mass index (BMI) Body temperature Oxygen saturation Oxygen saturation in Arterial blood by Pulse oximetry Heart rate Systolic blood pressure Diastolic blood pressure Provider Name and Address Organization Details Last Updated DateTime 6 149.86 cm 11317.7 4 g 19.6 kg/m2 98.4 [degF] 99 % 99 % 95 /min 109 mm[Hg] 70 mm[Hg] [facility] 6 10:43:33 Social History Question Answer Notes LastModified by Organizat ion Details LastModified Time Tobacco Smoking Status Never Smoker Not Available [facility] 05/12/2020 03:36:35 How Much Tobacco Do You Chew? None [id number] Information not available 05/12/2020 What Type Of Diet Are You Following? REGULAR [id number] Information not available 05/12/2020 Which Illicit Or Recreational Drugs Have You Used? None [id number] Information not available 05/12/2020 Live Alone Or With Others? With Others Information not available 05/07/2015 Smoke Alarm In Home Yes Information not available 05/07/2015 At What Age Did You Start Smoking Tobacco? 1 [id number] Information not available 05/12/2020 Are You Passively Exposed To Smoke? No Information no t available 05/07/2015 How Much Tobacco Do You Smoke? No [id number] Information not available 05/12/2020 How Many Years Have You Smoked Tobacco? 0 [id number] Information not available 05/12/2020 Sex: Unknown Functional Status Question Answer Note LastModified by Organization D etails LastModified Time Are you able to care for yourself? Yes [id number] Information n ot available 05/12/2020 Mental Status None recorded. Family History Nothing Reported. Medical History Condition Response Coronary Artery Disease N Other N Gout N Kidney Stones N Blood Diseases N Hyperthyroidism N Breast Cancer N mrsa exposure N COPD N Depression N Lung Disease N Hypothyroidism N Defects or Inherited Disease N Developmental or Behavioral Disorders N Breast Problem N Anesthesia Complications N Headaches/Migraines Y Varicose Veins N Anxiety Disorder N Muscle, Joint, or Bone Problems N Obesity N Vision or Eye Problems N Arthritis N Head Injury/Concussion N Polyps N Infertility N Mental Disorder N Congenital Anomalies N Acid Reflux (GERD) N Cancer N Stroke N ADHD N Endometriosis N High Cholesterol N Liver Disease N Fibromyalgia N Headaches N Kidney Disease N Heart Problems N Ear or Hearing Problems N Hospitalizations N Thyroid Problems N GI Problems N Developmental Delay N Acne N Skin Problems N Eating Disorder N Anemia N Constipation N Bladder Problems N Mental Illness N Ovarian Cancer N Diabetes N Bedwetting N Blood Transfusions N Seizures/Epilepsy N Heart Problems/Murmur N Tuberculosis N AIDS/HIV N Congestive Heart Failure (CHF) N Eczema N Diverticulitis N Abuse/Domestic Violence N Allergies N Asthma N Reflux/GERD N Hepatitis N Heart Disease N Pulmonary Embolism N Hypertension N Osteoporosis N Chicken Pox N Autism Spectrum Disorder (ASD) N Gynecological HistoryNo gynecological history recorded. Obstetrics History GPAL:G 0 P 0 0 0 0 Past Encounters Encounter ID Performer Location Encounter Start Date Encounter Closed Date Diagnosis/Indication Diagnosis SNOMED-CT Code Diagnosis ICD10 Code [id number] autoEComm erce [address] [facility] [place] [address] 08/07/2012 00:00:00 [id number] autoEComm erce [address] [facility] [place] [address] 12/19/2012 00:00:00 [id number] autoEComm erce [address] [facility] [place] [address] 04/30/2013 00:00:00 [id number] autoEComm zace [address] [facility] [address] [place] [address] 07/02/2013 00:00:00 [id number] autoEComm erce [address] [facility] [place] [address] 11/15/2013 00:00:00 [id number] autoEComm erce [address] [facility] [place] [address] 01/01/2014 00:00:00 [id number] Main Office [address] [facility] [address] [place] [address] 04/29/2014 12:43:14 04/29/2014 13:45:14 Palpitations 35601333 Migraine 13172028 [id number] Kvng Wang MD Main Office [address] [place] [address] 09/04/2014 12:40:04 09/04/2014 13:25:38 Shoulder pain 17329503 Contact dermatitis 25706 004 Neck pain 71114767 244231 Kvng Wang MD Main Office [address] [facility] [address] [place] [address] 05/07/2015 10:29:22 05/07/2015 12:00:23 Shoulder pain 29007116 M25.512 [id number] Sebas Ng MD Main Office [address] [facility] [address] [place] [address] 03/29/2016 14:55:01 03/29/2016 15:51:25 Generalized anxiety disorder 94563811 F41.1 Panic disorder 802675753 F41.0 Fatigue 70736072 R53.83 Major depr essive disorder 021950213 F32.9 [id number] Kvng Wang MD Main Office [address] [facility] [address] [place] [address] 05/12/2016 10:33:51 05/12/2016 12:27:15 Upper respiratory infection 87907616 J06.9 Health Concerns Section Related Observation LastModified by Organization Detai ls LastModified Time None Recorded Concern Status LastModified by Organization Details LastModified Time None Recorded Advance Directives Directive None Recorded Payers Encounter Date Sequence Insurance Name Policy Number Policy Ramos Covered Member ID Ramos Member ID Guarantor Name 04/29/2014 1 [facility] [id number] Aaron Sarabia [id number] Aaron Sarabia 09/04/2014 1 [facility] [id number] Aaron Sarabia [id number] 2 Aaron Sarabia 05/07/2015 1 [facility] [id number] Aaron Sarabia [id number] 2 Aaron Sarabia 03/29/2016 1 [facility] [id number] Aaron Sarabia [id number] Aaron Sarabia 05/12/2016 1 [facility] [id number] Aaron Sarabia [id number] Aaron Sarabia Notes Date Note Type Note Provider Name and Address Organization Details Recorded Time 03/29/2016 text/html Anxiety/Depressi on Reported bypatient.Quality: symptoms worse in the evening;increased anxiety;panic symptoms; and night. Pt. has a lot of headaches and wakes up at night with anxiety , palpitations, difficulty breathing, muscle tension in the neck. Severity:denies suicidal ideations;interfer ence with sleep;interference with work; is also suffering from panic d/o and it affects and stresses her out./ Pt. has family h/o anxiety in sister and aunt. Duration:started:; about 2 years ago started , but since March started symptoms are more severe and more frequent. Context:family problems; denies ETOH, drugs or smoking. Modifying Factors:social support; good social support. NO counseling Associated Symptoms:denies homicidal ideations; no significant weight gain; no significant weight loss; no visual/auditory hallucinations; no delusions; no shortness of breath; no crying spells; no isolation; appetite good;high irritability;anxie ty;depression;slee p disturbances;anxie ty with muscle tension;palpitatio ns;anxiety with excessive sweatingNotes:NO prior medication treatments for anxiety/depression . NO recent labs. Sebas Ng MD [address] [address], [place], [address], [facility] [place] 03/29/2016 19:39:40 05/12/2016 text/html Sinusitis/Allerg yR eported bypatient.Associat ed Symptoms:facial pain bilaterally;sinus pain forehead;thick phlegm in throat;constantly clearing the throat;nasal discharge;ear fullness Quality:hoarseness ;congested;colored phlegm;productive cough Context:recent upper respiratory infection Risk Factors:no history of asthmaNotes:Patien t c/o fever, chills, bodyaches, cough productive yellow phlegm, left ear pain. Denies abd pain, N/V/D. Sx x 1 week. Has been taking ibuprofen with some relief. Kvng Wang MD [address] [address], [place], [address], [facility] [place] 05/12/2016 12:17:20 OBGyn Episode No OBEpisode recorded.
== END 2024-06-27 09:28 | disposition home or self-care (01) ==
PROVIDERS: Visit Provider Registered Nurse
DX: J06.9 Acute upper respiratory infection, unspecified (principal)

== ENCOUNTER 2024-08-07 13:40 | Outpatient (REF) | payer OTHER, SELFPAY ==
--- NOTE | 2024-08-07 13:42 | EMG_ITS ---
Chief complaint: Bilateral hand numbness Reason for referral: Evaluate for Carpal Tunnel Syndrome Referred by: Aiden IRELAND Procedure done: Bilateral upper extremities NCS/EMG Precautions and/or limitations: None Greenlandic speaking, seen with tutoring clinician. The limb temperature was monitored continuously and remained between 32-36 degrees C during the performance of the NCS. Nerve Conduction Studies Anti Sensory Summary Table ?Stim Site NR Onset (ms) Norm Onset (ms) Peak (ms) Norm Peak (ms) O-P Amp (?V) Norm O-P Amp Site1 Site2 Delta-0 (ms) Dist (cm) Roman (m/s) Norm Roman (m/s) Left Median Anti Sensory (2nd Digit) Wrist ? 2.4 3.2 <3.6 27.5 >10 Wrist 2nd Digit 2.4 14.0 58 Right Median Anti Sensory (2nd Digit) Wrist ? 2.1 3.0 <3.6 28.9 >10 Wrist 2nd Digit 2.1 14.0 67 Left Ulnar Anti Sensory (5th Digit) Wrist ? 2.1 3.0 <3.7 36.5 >15.0 Wrist 5th Digit 2.1 14.0 67 Right Ulnar Anti Sensory (5th Digit) Wrist ? 2.1 3.2 <3.7 37.6 >15.0 Wrist 5th Digit 2.1 14.0 67 Motor Summary Table ?Stim Site NR Onset (ms) Norm Onset (ms) O-P Amp (mV) Norm O-P Amp iAmp (mV) Amp (1st) (%) Site1 Site2 Delta-0 (ms) Dist (cm) Roman (m/s) Norm Roman (m/s) Left Median Motor (Abd Poll Brev) Wrist ? 2.9 <3.9 12.2 >4.5 14.9 100.0 Elbow Wrist 3.3 17.0 52 >45 Elbow ? 6.2 11.5 13.7 94.3 Right Median Motor (Abd Poll Brev) Wrist ? 3.0 <3.9 7.0 >4.5 8.0 100.0 Elbow Wrist 3.1 17.0 55 >45 Elbow ? 6.1 7.4 8.5 105.7 Left Ulnar Motor (Abd Dig Minimi) Wrist ? 2.5 <3.0 7.0 >5 8.7 100.0 B Elbow Wrist 2.4 15.0 62 >45 B Elbow ? 4.9 6.5 8.1 92.9 A Elbow B Elbow 1.5 10.0 67 >45 A Elbow ? 6.4 6.5 8.2 92.9 Right Ulnar Motor (Abd Dig Minimi) Wrist ? 2.9 <3.0 7.4 >5 9.7 100.0 B Elbow Wrist 2.3 15.0 65 >45 B Elbow ? 5.2 6.8 8.8 91.9 A Elbow B Elbow 1.4 10.0 71 >45 A Elbow ? 6.6 6.5 8.9 87.8 Comparison Summary Table ?Stim Site NR Peak (ms) Norm Peak (ms) P-T Amp (?V) Site1 Site2 Delta-P (ms) Norm Delta (ms) Right Median/Radial Dig I Comparison (Digit 1 - 10cm) Median ? 2.6 <2.9 66.6 Median Radial 0.2 Radial ? 2.4 <2.8 28.2 EMG ?Side Muscle Nerve Root Ins Act Fibs Psw Amp Dur Poly Recrt Int Pat Comment Right 1stDorInt Ulnar C8-T1 Nml Nml Nml Nml Nml 0 Nml Complete Right FlexCarRad Median C6-7 Nml Nml Nml Nml Nml 0 Nml Complete Right Biceps Musculocut C5-6 Nml Nml Nml Nml Nml 0 Nml Complete Right Triceps Radial C6-7-8 Nml Nml Nml Nml Nml 0 Nml Complete Right Deltoid Axillary C5-6 Nml Nml Nml Nml Nml 0 Nml Complete Left 1stDorInt Ulnar C8-T1 Nml Nml Nml Nml Nml 0 Nml Complete Left FlexCarRad Median C6-7 Nml Nml Nml Nml Nml 0 Nml Complete Left Biceps Musculocut C5-6 Nml Nml Nml Nml Nml 0 Nml Complete Left Triceps Radial C6-7-8 Nml Nml Nml Nml Nml 0 Nml Complete Left Deltoid Axillary C5-6 Nml Nml Nml Nml Nml 0 Nml Complete FINDINGS: All motor and sensory nerves tested showed normal latencies, amplitudes and conduction velocities. Concentric needle EMG was performed in selected muscles of the bilateral upper extremities. Study did not reveal signs of electric abnormalities as shown in the table above. IMPRESSION: 1. This is a normal study. 2. There is no electrodiagnostic evidence for median neuropathy, ulnar neuropathy, brachial plexopathy, or cervical radiculopathy. Thank you for your kind referral. Ladonna Chand MD, RICCARDO Board Certified, [place] [employer] and Rehabilitation (ABPMR) Board Certified, [place] Board of Electrodiagnostic Medicine (ABEM) CODIN [phone] x2 MTDD
== END 2024-08-07 13:41 | disposition home or self-care (01) ==
LOC: HO.NEURO 13:40
PROVIDERS: PCP Nurse Practitioner Family; Visit Provider Midwife
DX: R20.0 Anesthesia of skin (principal); R20.2 Paresthesia of skin
CPT/HCPCS: 95886; 95911

== ENCOUNTER → 2024-08-07 13:42 | Outpatient (BNV) | payer OTHER, SELFPAY | PROVIDERS: PCP Nurse Practitioner Family; Visit Provider Physical Medicine & Rehabilitation | DX: R20.0 Anesthesia of skin (principal); R20.2 Paresthesia of skin | CPT/HCPCS: 95886; 95911 ==

== ENCOUNTER 2024-08-28 14:58 | Outpatient (AMB) | payer OTHER, SELFPAY ==
--- OUTSIDE RECORDS SUMMARY | 2024-08-28 15:02 | XMS_ITS | Continuity of Care Document ---
Author Organization [facility] ter Address [address] [place] [id number]- Care Team Providers Care Population Health Coach Name Role Phone Kareem SWARTZ, Fco Primary Care Physician [phone] Encounter [facility] [id number] Date(s): 08/27/24 - 08/27/[address] [address]- Encounter Diagnosis Painless rectal bleeding(Final) - 08/27/24 Discharge Disposition: A-D/C Home Attending Physician: Maurilio Polk MD Admitting Physician: Maurilio Polk MD Referring Physician: Not on Staff, Referring MD Encounter Type: Disch ES Allergies, Adverse Reactions, Alerts No Known Allergies Immunizations Given and Recorded Vaccine Date Status Refusal Reason influenza virus vaccine, inactivated 1 04/06/12 Gi tom Influenza Virus Vaccine (oldterm) 2 04/27/07 Given Influenza Virus Vaccine (oldterm) 3 05/22/06 Given 1Admin Note: VIS GIVEN-DATED 01/09/12 2Admin Note: VIS in turkish 3Admin Note: VIS Medications conjugated estrogens topical 0.625 mg/gm cream with applicator = 1 Gm, Vaginally, Daily before dinner, 1 gm per vagina at night for 14 days then taper down to twice a week., # 30 Gm, 0 Refills, Maintenance, 10/07/22 8:57:00 AM EDT, [id number], Partial fill upon patient request if the prescription is for a schedule II opioid drug., 1 Gm Vaginally Daily before dinner,x14 days,Instr:1 gm per vagina at night for 14 days then taper down to twice a week., 148, cm, 10/07/22 8:22:00 EDT, Height, 45.4, kg, 10/07/22 8:22:00 EDT, Dry Weight Start Date: 10/07/22 Stop Date: 10/21/22 Status: Ordered Quantity: 30.0 Unit: g Repeat number: 1 Vitamin D3 = 1,000 International_Units, By Mouth, Daily, 0 Refills, Maintenance, 10/10/17 9:43:05 AM EDT Start Date: 10/10/17 Status: Ordered Repeat number: 1 Zantac 150 oral tablet 1 tablet = 150 mg, By Mouth, 2 times a day, PRN Other, 0 Refills, Maintenance, 10/10/17 9:43:34 AM EDT Start Date: 10/10/17 Status: Ordered Repeat number: 1 Problem List Condition Confirmation Course Effective Dates Status H ealth Status Informant ? history of cervical dysplasia. She describes a scraping procedure being done on the cervix. All Paps back to 2003 are negative in [facility] system. 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 Menopausal state - since approximately 2020 Confirmed Active Dyspareunia in female Confirmed Active Blood transfusion declined because patient is Buddhism - she states she is willing to rather than have a blood transfusion Confirmed Active Vital Signs Most recent to oldest [Reference Range]: 1 2 3 Weight 45 kg (08/27/24 10:08 AM) Oxygen Saturation [94-100 %] 100 % (08/27/24 3:34 PM) 100 % (08/27/24 11:06 AM) 100 % (08/27/24 10:08 AM) Pulse Rate [55-90 bpm] 84 bpm (08/27/24 3:34 PM) 80 bpm (08/27/24 11:06 AM) 86 bpm (08/27/24 10:08 AM) Blood Pressure [90-138/55-84 mm Hg] 106/61mm Hg (08/27/24 3:34 PM) 117/72mm Hg (08/27/24 11:06 AM) 110/66mm Hg (08/27/24 10:08 AM) Respiratory Rate [16-30 br/min] 18 br/min (08/27/24 3:34 PM) 18 br/min (08/27/24 11:06 AM) 16 br/min (08/27/24 10:08 AM) Temperature [96.8-100.4 DegF] 98.4 DegF (08/27/24 3:34 PM) 98.3 DegF (08/27/24 11:06 AM) 98.4 DegF (08/27/24 10:08 AM) Mode of Delivery (Oxygen) Room air (08/27/24 3:34 PM) Room air (08/27/24 11:06 AM) Room air (08/27/24 10:08 AM) Blood pressure sites Arm, left (08/27/24 3:34 PM) Arm, right (08/27/24 11:06 AM) Temperature Route Oral (08/27/24 3:34 PM) Oral (08/27/24 11:06 AM) Oral (08/27/24 10:08 AM) Dry Weight 45 kg (08/27/24 10:08 AM) Weight Obtained Via Patient/family state d (08/27/24 10:08 AM) Dry Weight Obtained Via Patient/family s tated (08/27/24 10:08 AM) Social History Social History Type Response Smoking Status Never (less than 100 in lifetime) entered on: 10/07/22 Sex Sex Representation Female (finding) EKG study * Event Display: EKG Authored Date: [id number] Note * Marnie Rodrigues: PERFORM Event Display: Patient Education Leaflets Authored Date: [id number] Lower GI Bleeding (Stable) ?? [id number] Hemorragia digestiva inferior (estable) El examen que se le hizo hoy muestra signos de elizabeth en la materia fecal. [place] se llama ???rectorragia?? (o sangrado rectal). Esta hemorragia puede aashish comenzado en cualquier otra parte del tubo digestivo. Si la elizabeth es de color polk vivo, es probable que provenga de la porci??n inferior del tubo digestivo. Si proviene del tubo digestivo superior, la materia fecal se vuelve de color negruzco. Si la hemorragia del tubo digestivo es muy tu??a, es posible que no sea visible y, en brennen mel, solo se la puede descubrir al hacer franco prueba qu??gee de la materia fecal. Entre las posibles causas de la hemorragia digestiva inferior se incluyen las siguientes: ??? Venas inflamadas e hinchadas en el recto (hemorroides) ??? Desgarro en el recubrimiento del ano(fisuras anales) ??? Inflamaci??n de franco bolsa tu??a del intestino (diverticulitis) ??? Enfermedad inflamatoria intestinal (enfermedad de Crohn o colitis ulcerosa) ??? P??lipos (crecimientos) en el intestino ??? Hinchaz??n e irritaci??n del colon (colitis infecciosa) ??? C??ncer de colon Nota:??Los suplementos de whitney y los medicamentos para la diarrea o el malestar estomacal pueden provocar heces de color agatha. Los alimentos francisco el regaliz y las remolachas tambi??n pueden provocar el cambio de color de las heces. [place] se puede confundir con hemorragia. En estos casos, no existe ninguna hemorragia y el paciente no se debe preocupar. Cuidados en el hogar Usted no marie perdido franco gran cantidad de elizabeth y trimble estado parece ser estable en jules momento.??Puede reanudar rossana actividades normales, siempre que se sienta maribell. No use antinflamatorios no esteroideos (REGIS), francisco la aspirina, el ibuprofeno o el naproxeno. Estos medicamentos pueden irritar el est??jeremie y provocar franco hemorragia mayor. Si ingiere estos medicamentos por otro motivo m??dico, consulte con trimble proveedor de atenci??n m??dica antes de interrumpir trimble administraci??n.? Visitas de control Asista a los controles con trimble proveedor de atenci??n m??dica seg??n le hayan indicado. Es posible que deba hacerse otras pruebas para encontrar la causa de la hemorragia. ?? Cu??ndo buscar atenci??n m??dica Llame a trimble proveedor de atenci??n m??dica de inmediato ante cualquiera de los siguientes signos o s??ntomas: ??? Sangrado rectal? Aumento del dolor abdominal ??? Debilidad, mareos ??? Empeoramiento de los s??ntomas actuales o aparici??n de nuevos s??ntomas ?? Cu??ndo llamar al 911 Llame al?? 911 si se presenta alguna de las siguientes situaciones: ??? P??rdida del conocimiento ??? V??mitos con elizabeth ??? Abundante sangrado rectal? Last Reviewed Date: 2020 ?? [id number] [employer]. Todos los derechos reservados. Esta informaci??n no pretende sustituir la atenci??n m??dica profesional. S??lo trimble m??dico puede diagnosticar y tratar un problema de lorenzo. ?? Patient Care team information Care Team Personnel Name: Fco Serna NP Position: Reference Physician Member Role: PCP Address: [address] [place] [id number]- Telecom: Care Team Related Persons Name: LEIGHANN CEE Insurance Providers Guarantor name: GREGORY EDGE Health Plan Information #: 1 Payer: [facility] [employer] Member Number: [id number] Policy Number: NA Group Number: [id number] Health Plan Information #: 2 Payer: [facility] [employer] Member Number: [id number] Policy Number: NA Group Number: NA
--- OUTSIDE RECORDS SUMMARY | 2024-08-28 15:02 | XMS_ITS | Data Portability ---
Author Organization [facility], Main Office Address [address] [facility] [address] [place] [phone] Care Team Providers [employer] Name Role Phone EVANGELISTAKVNG [place] Primary Care Provider [facility] OTHER [...] Time Details Appointments None record ed. Lab TSH, serum or plasma 2015 016 Not available 6 04:31:56 CBC w/ auto diff 2015 016 Not available 6 04:31:55 CMP, serum or plasma 2015 016 Not available 6 04:31:57 vitami n D, 25-hyd rashid, total, serum 2015 016 Not available 6 04:31:55 BMP, serum or plasma 2013 014 YOJANA Not available 4 09:17:57 CBC w/ auto diff 2013 014 YOJANA Not available 4 09:17:58 TSH + free T4, serum 2013 014 YOJANA Not available 4 09:17:57 Referral orthop edic referr al - left should er pain x > 6 months , sympto matic treatm ent withou t relief , decrea sed mobili ty and functi oning of left arm 2014 015 elena [facility], [address] [place] [address], [phone], 5 10:55:15 Procedures None record ed. Surgeries None record ed. Imaging electr ocardi ogram 2013 014 [email or web address] In-Office Order, Internal Use Only DO Not Attach Compendium DO Not Attach Compendium, Do Not Delete/merge, [id number] 4 15:59:36 Medication Orders Zithro max Z-Stef 250 mg tablet 2015 016 [id number] [id number], [address] [place], [address], 6 04:32:13 benzon atate 200 mg capsul e 2015 016 [facility], [address] [place], [address], 6 04:32:22 clonaz epam 0.5 mg tablet 2015 016 [facility], [address] [place], [address], 6 04:31:50 sertra line 50 mg tablet 2015 016 [facility], [address] [place], [address], 6 04:31:50 Robaxi n-750 750 mg tablet 2014 015 [email or web address] [facility], [address] [place], [address], 5 10:52:46 desoni de 0.05 % topica l ointme nt 2014 015 [facility], [address] [place], [address], 5 10:58:14 naprox en 500 mg tablet 2014 015 [facility], [address] [place], [address], 5 08:20:27 propra nolol ER 60 mg capsul e,24 hr,ext ended releas e [address]/[facility], [address] [place], [address], 6 15:18:01 sumatr iptan 50 mg tablet [address]/[facility]armacy [facility]88, [address] [place], [address], 6 15:17:56 Patient TargetsNo targets recorded. Patient Instructions Encounter Date Encounter Id Patient Instructions Last Modified By Organization Details Last Modified Time 04/29/2014 [id number] To call or retur n for worsening [...] care. malissa Not available 04/29/2014 15:59:36 09/04/2014 [id number] bursitis de hombro: ejercicios - [shoulder bursitis: [...] care. dimasowski Not available 09/05/2014 08:20:28 05/07/2015 [id number] To call or retur n for worsening [...] care. karmaafshan Not available 05/07/2015 13:15:10 03/29/2016 [id number] anxiety disorder : care instructions Not available 06/25/2016 04:31:53 I have reviewed the note and agree with the assessment and plan of care. niki Not available 03/29/2016 19:39:36 05/12/2016 [id number] infecci??n de la s v?? respiratorias altas [...] Abnormal Flag Note LastModifiedBy Organization Detail LastModifiedTime 04/29/20 14 04/29/2014 elect opal montaguegr am Rate & Rhythm Normal sinus rhythm 88 Not Available In-Office Order Internal Use Only DO Not Attach Compendium DO Not Attach Compendium, Do Not Delete/merge, [id number] 04/29/2014 13:29:19 04/29/20 14 04/29/2014 thyro id panel free T4 1.12 NG/dL (0.70- 1.80) Not Available [facility] [address] [place], [address], 05/19/2014 15:01:25 04/29/20 14 04/29/2014 thyro id panel TSH 2.05 mIU/m L (0.4-4 .0) Not Available [facility] [address] [place], [address], 05/19/2014 15:01:25 04/29/20 14 04/29/2014 BMP, serum or plasm a glucose 83 mg/dL (70-99 ) Not Available [facility] [address] [place], [address], 05/19/2014 15:01:23 04/29/20 14 04/29/2014 BMP, serum or plasm a BUN 13 mg/dL (6-20) Not Available [facility] [address] [place], [address], 05/19/2014 15:01:23 04/29/20 14 04/29/2014 BMP, serum or plasm a creatinine 0.5 mg/dL (0.5-1 .0) Not Available [facility] [address] [place], [address], 05/19/2014 15:01:23 04/29/20 14 04/29/2014 BMP, serum or plasm a sodium 140 mmol/ L (133-1 45) Not Available [facility] [address] [place], [address], 05/19/2014 15:01:23 04/29/20 14 04/29/2014 BMP, serum or plasm a potassium 4.7 mmol/ L (3.6-5 .2) Not Available [facility] [address] [place], [address], 05/19/2014 15:01:23 04/29/20 14 04/29/2014 BMP, serum or plasm a chloride 102 mmol/ L (98-10 7) Not Available [facility] [address] [place], [address], 05/19/2014 15:01:23 04/29/20 14 04/29/2014 BMP, serum or plasm a bicarbonate 30 mmol/ L (22-29 ) high Not Available [facility] [address] [place], [address], 05/19/2014 15:01:23 04/29/20 14 04/29/2014 BMP, serum or plasm a anion gap 8 (4-17) Not Available [facility] [address] [place], [address], 05/19/2014 15:01:23 04/29/20 14 04/29/2014 BMP, serum or plasm a calcium 10.3 mg/dL (8.6-1 0.5) AGUILA SANDERS ELEVA MICHELLE CALCI UM LEVEL S SHOUL D BE REPEA MICHELLE ON A SEPAR ATE DAY CLINI RANDALL INDIC ATED. Not Available [facility] [address] [place], [address], 05/19/2014 15:01:23 04/29/20 14 04/29/2014 BMP, serum [...] Available [facility] [address] [place], [address], 05/19/2014 15:01:23 04/29/20 14 04/29/2014 BMP, serum [...] AMERI CANS. Not Available [facility] [address] [place], [address], 05/19/2014 15:01:23 04/29/20 14 04/29/2014 CBC w/ auto diff WBC 4.7 K/mm3 (4.0-1 1.0) Not Available [facility] [address] [place], [address], 05/19/2014 15:00:45 04/29/20 14 04/29/2014 CBC w/ auto diff RBC 4.37 M/mm3 (4.20- 5.40) Not Available [facility] [address] [place], [address], 05/19/2014 15:00:45 04/29/20 14 04/29/2014 CBC w/ auto diff HGB 13.1 gm/dL (12.0- 16.0) Not Available [facility] [address] [place], [address], 05/19/2014 15:00:45 04/29/20 14 04/29/2014 CBC w/ auto diff HCT 39.6 % (37.0- 47.0) Not Available [facility] [address] [place], [address], 05/19/2014 15:00:45 04/29/20 14 04/29/2014 CBC w/ auto diff MCV 90.6 fL (80.0- 100.0) Not Available [facility] [address] [place], [address], 05/19/2014 15:00:45 04/29/20 14 04/29/2014 CBC w/ auto diff MCH 30.0 pg (27.0- 34.0) Not Available [facility] [address] [place], [address], 05/19/2014 15:00:45 04/29/20 14 04/29/2014 CBC w/ auto diff MCHC 33.1 % (33.0- 37.0) Not Available [facility] [address] [place], [address], 05/19/2014 15:00:45 04/29/20 14 04/29/2014 CBC w/ auto diff plt 272 K/mm3 (150-4 60) Not Available [facility] [address] [place], [address], 05/19/2014 15:00:45 04/29/20 14 04/29/2014 CBC w/ auto diff RDW-SD 39.8 fL (<47.0 ) Not Available [facility] [address] [place], [address], 05/19/2014 15:00:45 04/29/20 14 04/29/2014 CBC w/ auto diff MPV 9.8 fL (9.4-1 2.4) Not Available [facility] [address] [place], [address], 05/19/2014 15:00:45 04/29/20 14 04/29/2014 CBC w/ auto diff automated NRBC 0.0 #/100 _WBC' s Not Available [facility] [address] [place], [address], 05/19/2014 15:00:45 04/29/20 14 04/29/2014 CBC w/ auto diff abs. NRBC 0.0 K/mm3 Not Available [facility] [address] [place], [address], 05/19/2014 15:00:45 04/29/20 14 04/29/2014 CBC w/ auto diff neut # 2.3 K/mm3 (1.3-7 .0) Not Available [facility] [address] [place], [address], 05/19/2014 15:00:45 04/29/20 14 04/29/2014 CBC w/ auto diff lymph # 1.9 K/mm3 (0.8-3 .1) Not Available [facility] [address] [place], [address], 05/19/2014 15:00:45 04/29/20 14 04/29/2014 CBC w/ auto diff mono# 0.4 K/mm3 (0.4-0 .9) Not Available [facility] [address] [place], [address], 05/19/2014 15:00:45 04/29/20 14 04/29/2014 CBC w/ auto diff eo # 0.0 K/mm3 (0.0-0 .4) Not Available [facility] [address] [place], [address], 05/19/2014 15:00:45 04/29/20 14 04/29/2014 CBC w/ auto diff baso # 0.0 K/mm3 (0.0-0 .1) Not Available [facility] [address] [place], [address], 05/19/2014 15:00:45 04/29/20 14 04/29/2014 CBC w/ auto diff abs. imm gran 0.0 K/mm3 Not Available [facility] [address] [place], [address], 05/19/2014 15:00:45 04/29/20 14 04/29/2014 CBC w/ auto diff neut 49.0 % (44-76 ) Not Available [facility] [address] [place], [address], 05/19/2014 15:00:45 04/29/20 14 04/29/2014 CBC w/ auto diff lymph 40.3 % (15-43 ) Not Available [facility] [address] [place], [address], 05/19/2014 15:00:45 04/29/20 14 04/29/2014 CBC w/ auto diff monocyte 8.9 % (4.5-1 0.5) Not Available [facility] [address] [place], [address], 05/19/2014 15:00:45 04/29/20 14 04/29/2014 CBC w/ auto diff eo 0.8 % (0-6) Not Available [facility] [address] [place], [address], 05/19/2014 15:00:45 04/29/20 14 04/29/2014 CBC w/ auto diff baso 0.6 % (0-2) Not Available [facility] [address] [place], [address], 05/19/2014 15:00:45 04/29/20 14 04/29/2014 CBC w/ auto diff imm gran 0.4 % (0.0-0 .6) Not Available [facility] [address] [place], [address], 05/19/2014 15:00:45 03/29/20 16 03/29/2016 CBC w/ auto diff WBC 5.9 K/mm3 (4.0-1 1.0) Not Available [facility] [address] [place], [address], 03/29/2016 19:38:18 03/29/20 16 03/29/2016 CBC w/ auto diff RBC 4.39 M/mm3 (4.20- 5.40) Not Available [facility] [address] [place], [address], 03/29/2016 19:38:18 03/29/20 16 03/29/2016 CBC w/ auto diff HGB 12.8 gm/dL (12.0- 16.0) Not Available [facility] [address] [place], [address], 03/29/2016 19:38:18 03/29/20 16 03/29/2016 CBC w/ auto diff HCT 40.4 % (37.0- 47.0) Not Available [facility] [address] [place], [address], 03/29/2016 19:38:18 03/29/20 16 03/29/2016 CBC w/ auto diff MCV 92.0 fL (80.0- 100.0) Not Available [facility] [address] [place], [address], 03/29/2016 19:38:18 03/29/20 16 03/29/2016 CBC w/ auto diff MCH 29.2 pg (27.0- 34.0) Not Available [facility] [address] [place], [address], 03/29/2016 19:38:18 03/29/20 16 03/29/2016 CBC w/ auto diff MCHC 31.7 g/dL (33.0- 37.0) low Not Available [facility] [address] [place], [address], 03/29/2016 19:38:18 03/29/20 16 03/29/2016 CBC w/ auto diff plt 278 K/mm3 (150-4 60) Not Available [facility] [address] [place], [address], 03/29/2016 19:38:18 03/29/20 16 03/29/2016 CBC w/ auto diff RDW-SD 42.5 fL (<47.0 ) Not Available [facility] [address] [place], [address], 03/29/2016 19:38:18 03/29/20 16 03/29/2016 CBC w/ auto diff MPV 9.8 fL (9.4-1 2.4) Not Available [facility] [address] [place] [place], [address], 03/29/2016 19:38:18 03/29/20 16 03/29/2016 CBC w/ auto diff automated NRBC 0.0 #/100 _WBC' s Not Available [facility] [address] [place], [address], 03/29/2016 19:38:18 03/29/20 16 03/29/2016 CBC w/ auto diff abs. NRBC 0.0 K/mm3 Not Available [facility] [address] [place], [address], 03/29/2016 19:38:18 03/29/20 16 03/29/2016 CBC w/ auto diff neut # 2.8 K/mm3 (1.3-7 .0) Not Available [facility] [address] [place], [address], 03/29/2016 19:38:18 03/29/20 16 03/29/2016 CBC w/ auto diff lymph # 2.6 K/mm3 (0.8-3 .1) Not Available [facility] [address] [place], [address], 03/29/2016 19:38:18 03/29/20 16 03/29/2016 CBC w/ auto diff mono# 0.5 K/mm3 (0.4-0 .9) Not Available [facility] [address] [place], [address], 03/29/2016 19:38:18 03/29/20 16 03/29/2016 CBC w/ auto diff eo # 0.0 K/mm3 (0.0-0 .4) Not Available [facility] [address] [place], [address], 03/29/2016 19:38:18 03/29/20 16 03/29/2016 CBC w/ auto diff baso # 0.0 K/mm3 (0.0-0 .1) Not Available [facility] [address] [place], [address], 03/29/2016 19:38:18 03/29/20 16 03/29/2016 CBC w/ auto diff abs. imm gran 0.0 K/mm3 Not Available [facility] [address] [place], [address], 03/29/2016 19:38:18 03/29/20 16 03/29/2016 CBC w/ auto diff neut 46.9 % (44-76 ) Not Available [facility] [address] [place], [address], 03/29/2016 19:38:18 03/29/20 16 03/29/2016 CBC w/ auto diff lymph 43.8 % (15-43 ) high Not Available [facility] [address] [place], [address], 03/29/2016 19:38:18 03/29/20 16 03/29/2016 CBC w/ auto diff monocyte 7.7 % (4.5-1 0.5) Not Available [facility] [address] [place], [address], 03/29/2016 19:38:18 03/29/20 16 03/29/2016 CBC w/ auto diff eo 0.7 % (0-6) Not Available [facility] [address] [place], [address], 03/29/2016 19:38:18 03/29/20 16 03/29/2016 CBC w/ auto diff baso 0.7 % (0-2) Not Available [facility] [address] [place], [address], 03/29/2016 19:38:18 03/29/20 16 03/29/2016 CBC w/ auto diff imm gran 0.2 % (0.0-0 .6) Not Available [facility] [address] [place], [address], 03/29/2016 19:38:18 03/29/20 16 03/29/2016 CMP, serum or plasm a glucose 94 mg/dL (70-99 ) Not Available [facility] [address] [place], [address], 03/29/2016 21:45:16 03/29/20 16 03/29/2016 CMP, serum or plasm a BUN 13 mg/dL (6-20) Not Available [facility] [address] [place], [address], 03/29/2016 21:45:16 03/29/20 16 03/29/2016 CMP, serum or plasm a creatinine 0.5 mg/dL (0.5-1 .0) Not Available [facility] [address] [place], [address], 03/29/2016 21:45:16 03/29/20 16 03/29/2016 CMP, serum or plasm a sodium 136 mmol/ L (133-1 45) Not Available [facility] [address] [place], [address], 03/29/2016 21:45:16 03/29/20 16 03/29/2016 CMP, serum or plasm a potassium 4.9 mmol/ L (3.6-5 .2) Not Available [facility] [address] [place], [address], 03/29/2016 21:45:16 03/29/20 16 03/29/2016 CMP, serum or plasm a chloride 101 mmol/ L (98-10 7) Not Available [facility] [address] [place], [address], 03/29/2016 21:45:16 03/29/20 16 03/29/2016 CMP, serum or plasm a bicarbonate 24 mmol/ L (22-29 ) Not Available [facility] [address] [place], [address], 03/29/2016 21:45:16 03/29/20 16 03/29/2016 CMP, serum or plasm a anion gap 11 (4-17) Not Available [facility] [address] [place], [address], 03/29/2016 21:45:16 03/29/20 16 03/29/2016 CMP, serum or plasm a albumin 4.8 gm/dL (3.4-4 .8) Not Available [facility] [address] [place], [address], 03/29/2016 21:45:16 03/29/20 16 03/29/2016 CMP, serum or plasm a calcium 9.4 mg/dL (8.6-1 0.5) Not Available [facility] [address] [place], [address], 03/29/2016 21:45:16 03/29/20 16 03/29/2016 CMP, serum or plasm a bilirubin,to brennen 0.4 mg/dL (0-1.2 ) Not Available [facility] [address] [place], [address], 03/29/2016 21:45:16 03/29/20 16 03/29/2016 CMP, serum or plasm a total protein 7.8 gm/dL (6.2-8 .2) Not Available [facility] [address] [place], [address], 03/29/2016 21:45:16 03/29/20 16 03/29/2016 CMP, serum or plasm a Ag ratio 1.6 Not Available [facility] [address] [place], [address], 03/29/2016 21:45:16 03/29/2003/29/2016 CMP, serum or plasm a AST 29 U/L (0-32) Not Available [facility] [address] [place], [address], 03/29/2016 21:45:16 03/29/20 16 03/29/2016 CMP, serum or plasm a alk phos 126 U/L (35-10 4) high Not Available [facility] [address] [place], [address], 03/29/2016 21:45:16 03/29/20 16 03/29/2016 CMP, serum or plasm a ALT 53 U/L (0-31) high Not Available [facility] [address] [place], [address], 03/29/2016 21:45:16 03/29/20 16 03/29/2016 CMP, serum or plasm a est GFR [...] cans. Not Available [facility] [address] [place] [place], [address], 03/29/2016 21:45:16 03/29/20 16 03/29/2016 CMP, serum or plasm a est GFR [...] Available [facility] [address] [place], [address], 03/29/2016 21:45:16 03/29/20 16 03/29/2016 TSH, serum or plasm a TSH 2.35 mIU/m L (0.40- 4.00) Not Available [facility] [address] [place], [address], 03/29/2016 21:51:19 03/29/20 16 03/30/2016 vitam in D, 25-hy droxy , total , serum 25OH vitamin D 18.1 NG/mL (20-50 ) low SERUM 25OHD : 12 TO 19 NG/ML : AT RISK OF VITAM IN D INADE QUACY . Refer ence: [facility] Data Brief : No.59 September: Vitam in D Statu s: Unite d [place] s: 2000- 2005 Not Available [facility] [address] [place], [address], 03/30/2016 10:46:50 04/19/20 16 04/19/2016 hepat ic funct ion panel , serum bilirubin,to brennen 0.4 mg/dL (0-1.2 ) Not Available [facility] [address] [place], [address], 04/19/2016 20:15:15 04/19/20 16 04/19/2016 hepat ic funct ion panel , serum bilirubin, direct 0.1 mg/dL (0-0.3 ) SPECI MEN SLIGH TLY HEMOL YZED, RESUL TS MAY BE FALSE LY LOW. Not Available [facility] [address] [place], [address], 04/19/2016 20:15:15 04/19/20 16 04/19/2016 hepat ic funct ion panel , serum indirect bilirubin 0.3 mg/dL (0.0-0 .7) Not Available [facility] [address] [place], [address], 04/19/2016 20:15:15 04/19/20 16 04/19/2016 hepat ic funct ion panel , serum albumin 4.6 gm/dL (3.4-4 .8) Not Available [facility] [address] [place], [address], 04/19/2016 20:15:15 04/19/20 16 04/19/2016 hepat ic funct ion panel , serum AST 17 U/L (0-32) Not Available [facility] [address] [place], [address], 04/19/2016 20:15:15 04/19/20 16 04/19/2016 hepat ic funct ion panel , serum ALT 16 U/L (0-31) Not Available [facility] [address] [place], [address], 04/19/2016 20:15:15 04/19/20 16 04/19/2016 hepat ic funct ion panel , serum alk phos 95 U/L (35-10 4) Not Available [facility] [address] [place], [address], 04/19/2016 20:15:15 04/19/20 16 04/19/2016 hepat ic funct ion panel , serum total protein 7.2 gm/dL (6.2-8 .2) Not Available [facility] [address] [place], [address], 04/19/2016 20:15:15 04/19/20 16 04/20/2016 HBsAg (hepa titis B surfa ce Ag), serum hep. B surf. Ag NEGAT DILIP REFER ENCE RANGE : NEGAT DILIP Not Available [facility] [address] [place], [address], 04/20/2016 10:01:14 04/19/20 16 04/20/2016 hepat itis C virus Ab, serum anti-hepatit is C NEGAT DILIP REFER ENCE RANGE : NEGAT DILIP Not Available [facility] [address] [place], [address], 04/20/2016 10:25:43 04/30/20 14 elect rocar diogr [...] [email or web address] [facility] [address] [place], [address], 03/29/2016 15:11:38 07/01/20 15 05/27/2015 imagi ng/di zia tic resul t No observ ation record ed. lázaro Not Available 07/15 06:07:57 Result Notes None recorded. Problems Name Problem SNOMED Code Status Onset Date Resolution Date Notes Provider Name and Address Organization Details Recorded Time Allergic rhinitis 56687053 Completed 201202/17/2014 RECORDED 09/03/19 13 2:19PM BY DIANE GHOSH MA, ANNOTATI ON/ADDEN DUM Not Available [facility] 4 05:24:01 Patient status finding [id number] Completed 201202/17/2014 RECORDED 09/03/19 13 2:19PM BY DIANE GHOSH MA, ANNOTATI ON/ADDEN DUM Not Available [facility] 4 05:24:01 Bronchit is [id number] Completed 201302/17/2014 RECORDED 11/16/19 14 4:04PM BY EDD KINGSLEY MA, ANNOTATI ON/ADDEN DUM Not Available [facility] 4 05:24:01 Chest pain [id number] Completed 201202/17/2014 IMPRESSI ON: PPI AFFORDIN G RELIEF SO LIKELY GERD RELATED. WILL REASSESS WITH CONSITEN T USE AND INVETIGA TE FURTHER IF PERSISTA NT/WORSE . VIT D DEFICIEN CY ALSO POSSIBLE .; RECORDED 09/03/19 13 2:19PM BY DIANE GHOSH MA, ANNOTATI ON/ADDEN DUM Not Available [facility] 4 05:24:01 Cough [id number] Completed 201302/17/2014 RECORDED 11/16/19 14 4:04PM BY EDD KINGSLEY MA, ANNOTATI ON/ADDEN DUM Not Available [facility] 4 05:24:01 Dysfunct ion of eustachi an tube [id number] Completed 201202/17/2014 IMPRESSI ON: LIKELY ALLERGY RELATED. SALINE NASAL IRRIGATI ON ADVISED WELL. CALL INB/WORS E.; RECORDED 04/30/20 13 1:20PM BY TYSON HOWELL MA, ANNOTATI ON/ADDEN DUM Not Available [facility] hospital 4 05:24:02 Adult health examinat ion Completed 201202/17/2014 IMPRESSI ON: IMMUNIZA TION STATUS UTD (WILL VERIFY WITH PRIOR PCP RECORDS WHEN AVAILABL E) AND SCREEN BASED ON RISK FACTORS. REGULAR DENTAL CARE AND SEATBELT USE ADVISED. DISTRACT ED DRIVING DONNA D. ROUTINE [employer] CARE UTD, WILL REQUEST RECORDS FOR CONFIRMA TION; RECORDED 09/03/19 13 2:19PM BY DIANE GHOSH MA, NIGELATI ON/ADDEN DUM Not Available [facility] 4 05:24:02 Screenin g for malignan t neoplasm of breast Completed 201202/17/2014 RECORDED 12/20/19 13 8:56AM BY DIANE GHOSH MA, NIGELATI ON/ADDEN DUM Not Available [facility] hospital 4 05:24:02 Shoulder joint pain [id number] Active Brian Griffiths, PASUP [address] [address], [place], [address] , [facility] 4 13:32:27 Palpitat ions 45241717 Completed 201202/17/2014 IMPRESSI ON: LIEKLY STRESS RELATED. NOT WORSE WITH EXERTION ; RECORDED 07/02/20 13 10:03AM BY EDD KINGSLEY MA, NIGELATI ON/ADDEN DUM Not Available [facility] 4 05:24:02 Immuniza tion refused Completed 201202/17/2014 RECORDED 09/03/19 13 2:19PM BY DIANE GHOSH MA, NIGELATI ON/ADDEN DUM Not Available [facility] 4 05:24:02 Acute upper respirat ory infectio n [id number] Completed 201302/17/2014 RECORDED 01/02/20 14 10:18AM BY EDD KINGSLEY MA, NIGELATI ON/ADDEN DUM Not Available [facility] hospital 4 05:24:02 Vitamin D deficien cy 81223650 Completed 201202/17/2014 IMPRESSI ON: WILL REASSESS WITH HIGH DIOSE SUPPLEME NTATION AND ADJUST DAILY DOSE TO FIORELLA AND MAINTAIN A LEVEL 20-50.; RECORDED 04/30/20 13 1:20PM BY TYSON HOWELL MA, ANNOTATI ON/ADDEN DUM Not Available Critical access hospital 4 05:24:02 Palpitat ions [id number] Active Schuyler akbar, [facility] 4 15:59:36 Shoulder pain [id number] Active Kvng Wang MD [address], [place], [address] , [facility] 5 13:15:10 Contact dermatit is [id number] Active Kvng Wang MD [address], [place], [address] , [facility] 5 08:20:27 Neck pain [id number] Active Kvng Wang MD [address] [facility] [address], [place], [address] , [facility] 5 08:20:27 Adhesive capsulit is of shoulder [id number] Active Kvng Wang MD [address], [place], [address] , [facility] 5 19:43:17 Allergic rhinitis [id number] Completed 201201/21/2014 RECORDED 09/03/19 13 2:19PM BY DIANE GHOSH MA, ANNOTATI ON/ADDEN DUM Not Available Critical [facility] hospital 4 14:05:00 Patient status finding [id number] Completed 201201/21/2014 RECORDED 09/03/19 13 2:19PM BY DIANE GHOSH MA, ANNOTATI ON/ADDEN DUM Not Available [facility] 4 14:05:00 Bronchit is [id number] Completed 201301/21/2014 RECORDED 11/16/19 14 4:04PM BY EDD KINGSLEY MA, ANNOTATI ON/ADDEN DUM Not Available [facility] 4 14:05:00 Chest pain [id number] Completed 201201/21/2014 IMPRESSI ON: PPI AFFORDIN G RELIEF SO LIKELY GERD RELATED. WILL REASSESS WITH CONSITEN T USE AND INVETIGA TE FURTHER IF PERSISTA NT/WORSE . VIT D DEFICIEN CY ALSO POSSIBLE .; RECORDED 09/03/19 13 2:19PM BY DIANE GHOSH MA, ANNOTATI ON/ADDEN DUM Not Available [facility] 4 14:05:01 Cough [id number] Completed 201301/21/2014 RECORDED 11/16/19 14 4:04PM BY EDD KINGSLEY MA, ANNOTATI ON/ADDEN DUM Not Available [facility] 4 14:05:01 Allergic rhinitis 19740206 Active HILDA Buckley, [facility] 5 11:05:40 Dysfunct ion of eustachi an tube [id number] Completed 201201/21/2014 IMPRESSI ON: LIKELY ALLERGY RELATED. SALINE NASAL IRRIGATI ON ADVISED WELL. CALL INB/WORS E.; RECORDED 04/30/20 13 1:20PM BY TYSON HOWELL MA, ANNOTATI ON/ADDEN DUM Not Available [facility] 4 14:05:01 Adult health examinat ion Completed 201201/21/2014 IMPRESSI ON: IMMUNIZA TION STATUS UTD (WILL VERIFY WITH PRIOR PCP RECORDS WHEN AVAILABL E) AND SCREEN BASED ON RISK FACTORS. REGULAR DENTAL CARE AND SEATBELT USE ADVISED. DISTRACT ED DRIVING DONNA Richard. ROUTINE WORKDAY [facility], WILL REQUEST RECORDS FOR CONFIRMA TION; RECORDED 09/03/19 13 2:19PM BY DIANE GHOSH MA, ANNOTATI ON/ADDEN DUM Not Available [facility] 4 14:05:01 Gastroes ophageal reflux disease 591498184 Active BRYCE Adams [address] [address], [place], [address] , [facility] 4 13:32:27 Headache 95702298 Active BRYCE Adams [address] [facility] [address], [place], [address] , [facility] 4 13:32:27 Menopaus al symptom 10570962 Active Brian Griffiths, [facility] [address] [facility] [address], [place], [address] , [facility] 4 13:32:27 Pure hypercho lesterol emia 832720762 Active Brian Griffiths, [facility] [address] [facility] [address], [place], [address] , [facility] 4 13:32:27 Screenin g for malignan t neoplasm of breast Completed 201201/21/2014 RECORDED 12/20/19 13 8:56AM BY DIANE GHOSH MA, NIGELATI ON/ADDEN DUM Not Available [facility] 4 14:05:01 Migraine 11368472 [facility] 15:59[facility]36 Patient status finding 156969438 Active Brian Griffiths, [facility] [address] [facility] [address], [place], [address] , [facility] 4 13:32:27 Congenit al anomaly of eye 47734553 Active Brian Griffiths, [facility] [address] [facility] [address], [place], [address] , [facility] 4 13:32:27 Palpitat ions 36849394 Completed 201201/21/2014 IMPRESSI ON: LIEKLY STRESS RELATED. NOT WORSE WITH EXERTION ; RECORDED 07/02/20 13 10:03AM BY EDD KINGSLEY MA, ANNOTATI ON/ADDEN DUM Not Available [facility] 4 14:05:02 Immuniza tion refused Completed 201201/21/2014 RECORDED 09/03/19 13 2:19PM BY DIANE GHOSH MA, ANNOTATI ON/ADDEN DUM Not Available [facility] 4 14:05:02 Acute upper respirat ory infectio n 31088531 Active BRYCE Adams [address], [facility] [place], [address] , [facility] 4 13:32:27 Vitamin D deficien cy 08341605 Completed 201201/21/2014 IMPRESSI ON: WILL REASSESS WITH HIGH DIOSE SUPPLEME NTATION AND ADJUST DAILY DOSE TO FIORELLA AND MAINTAIN A LEVEL 20-50.; RECORDED 04/30/20 13 1:20PM BY TYSON HOWELL MA, ANNOTATI ON/ADDEN DUM Not Available [facility] 4 14:05:02 Problem Notes None recorded. Procedures Surgical History None recorded. Imaging Results Imaging Date Name Status LastModified by Organization Details LastModified Time 04/30/2014 electrocardiogram completed BARCODE Informa tion not available 04/30/2014 09:57:49 05/01/2013 CT, head, w/o contrast completed [email or web address] [facility] [address] [place], [address], 03/29/2016 15:11:38 05/27/2015 imaging/diagnostic result completed [email or web address] [...] active RECORDED 01/02/20 14 10:18AM BY EDD KIGNSLEY MA, OFFICE VISIT; Not Available Not Available [...] Updated DateTime 4 99 % 99 % 30433.7 78797 g 95 /min 19.8 kg/m2 149.86 cm 98.1 [degF] 106 mm[Hg] 75 mm[Hg] Netta Martinez MA [facility] 4 13:00:06 Date Recorded Body height Oxygen saturation Oxygen saturation in Arterial blood by Pulse oximetry Body weight Heart rate Body mass index (BMI) Body temperature Systolic blood pressure Diastolic blood pressure Provider Name and Address Organization Details Last Updated DateTime 5 149.86 cm 97 % 97 % 21903.2 32020 g 83 /min 19.9 kg/m2 97.8 [degF] 106 mm[Hg] 64 mm[Hg] Osmin Shipman [facility] 5 12:58:22 Date Recorded Body height Oxygen saturation Oxygen saturation in Arterial blood by Pulse oximetry Heart rate Body temperature Body weight Body mass index (BMI) Systolic blood pressure Diastolic blood pressure Provider Name and Address Organization Details Last Updated DateTime 5 149.86 cm 97 % 97 % 80 /min 97.8 [degF] 01702.6 4463 g 20 kg/m2 102 mm[Hg] 58 mm[Hg] Reyna moreau MA [facility] 5 10:56:53 Date Recorded Body height Oxygen saturation Oxygen saturation in Arterial blood by Pulse oximetry Heart rate Body weight Body mass index (BMI) Body temperature Systolic blood pressure Diastolic blood pressure Provider Name and Address Organization Details Last Updated DateTime 6 149.86 cm 100 % 100 % 86 /min 25869.7 4 g 19.6 kg/m2 98.3 [degF] 92 mm[Hg] 61 mm[Hg] Netta Martinez MA [facility] 6 15:16:06 Date Recorded Body height Body weight Body mass index (BMI) Body temperature Oxygen saturation Oxygen saturation in Arterial blood by Pulse oximetry Heart rate Systolic blood pressure Diastolic blood pressure Provider Name and Address Organization Details Last Updated DateTime 6 149.86 cm 61269.7 4 g 19.6 kg/m2 98.4 [degF] 99 % 99 % 95 /min 109 mm[Hg] 70 mm[Hg] Hannah Bermudez [facility] 6 10:43:33 Social History Question Answer Notes LastModified by Organizat ion Details LastModified Time Tobacco Smoking Status Never Smoker Not Available [facility] 05/12/2020 03:36:35 How Much Tobacco Do You Chew? None [id number] Information not available 05/12/2020 What Type Of Diet Are You Following? REGULAR [id number] Information not available 05/12/2020 Which Illicit Or Recreational Drugs Have You Used? None [id number] Information not available 05/12/2020 Live Alone Or With Others? With Others Information not available 05/07/2015 Smoke Alarm In Home Yes Information not available 05/07/2015 At What Age Did You Start Smoking Tobacco? 1 [id number] Information not available 05/12/2020 Are You Passively Exposed To Smoke? No Information no t available 05/07/2015 How Much Tobacco Do You Smoke? No [id number] Information not available 05/12/2020 How Many Years Have You Smoked Tobacco? 0 [id number] Information not available 05/12/2020 Sex: Unknown Functional Status Question Answer Note LastModified by Organization D etails LastModified Time Are you able to care for yourself? Yes [id number] Information n ot available 05/12/2020 Mental Status None recorded. Family History Nothing Reported. Medical History Condition Response Coronary Artery Disease N Other N Gout N Kidney Stones N Blood Diseases N Hyperthyroidism N Breast Cancer N mrsa exposure N Hypothyroidism N Depression N COPD N Lung Disease N Developmental or Behavioral Disorders N Defects or Inherited Disease N Breast Problem N Anesthesia Complications N Headaches/Migraines Y Varicose Veins N Anxiety Disorder N Muscle, Joint, or Bone Problems N Obesity N Vision or Eye Problems N Arthritis N Head Injury/Concussion N Polyps N Infertility N Mental Disorder N Congenital Anomalies N Acid Reflux (GERD) N Cancer N Stroke N ADHD N Endometriosis N High Cholesterol N Liver Disease N Headaches N Fibromyalgia N Kidney Disease N Heart Problems N [...] Eczema N Diverticulitis N Abuse/Domestic Violence N Asthma N Allergies N Reflux/GERD N Hepatitis N Heart Disease N Pulmonary Embolism N Hypertension N Chicken Pox N Autism Spectrum Disorder (ASD) N Osteoporosis N Gynecological HistoryNo gynecological history recorded. Obstetrics History GPAL:G 0 P 0 0 0 0 Past Encounters Encounter ID Performer Location Encounter Start Date Encounter Closed Date Diagnosis/Indication Diagnosis SNOMED-CT Code Diagnosis ICD10 Code Diagnosis Note [id number] auto[facility]Comm erce [address] [facility] [place] [address] 08/07/2012 00:00:00 [id number] auto[facility]Comm erce [address] [facility] [place] [address] 12/19/2012 00:00:00 [id number] auto[facility]Comm erce [address] [place] [address],[address] [place] [address] 04/30/2013 00:00:00 [id number] auto[facility] erce [address] [place], [place] [address] [place] [address] 07/02/2013 00:00:00 [id number] auto[facility] erce [address] [place] [address],[address] [place] [address] 11/15/2013 00:00:00 [id number] auto[facility] erce [address] [place] [address],[address] [place] [address] 01/01/2014 00:00:00 [id number] Main Office [address] [address] [place] [address] 04/29/2014 12:43:14 04/29/2014 13:45:14 Palpitations 56670497 Patient feels hot sensation and gets palpitatio ns then migraine headache. She would like to haev bloodwork done to r/o possible causes of hot flashes. Ekg in office negative Migraine 40002669 Hot sensation may be a preceding sx to her migraines will start propranolo l daily and sumatripta n as needed. [id number] Kvng Wang MD Main Office [address] [address] [place] [address] 09/04/2014 12:40:04 09/04/2014 13:25:38 Shoulder pain 43751046 Bursitis vs impingemen t syndrome. Recommend anti-infla mmatory, ice, rest, PT. She is unable to start PT at this time due to co-pay, will try home exercises. If sx persist please return. Contact dermatitis 23240873 To face, was seeing derm and was prescribed a steroid cream. Neck pain 98452347 Some neck muscle tension on left, ice or heat to area, stretches. [id number] Kvng Wang MD Main Office [address] [address] 05/07/2015 10:29:22 05/07/2015 12:00:23 Shoulder pain 15543341 M25.512 Bursitis vs impingemen t syndrome. Recommend anti-infla mmatory, ice, rest, PT. She is unable to start PT at this time due to co-pay, will try home exercises. Recommend she see an operations systems specialist for further work-up and management , possible injection therapy. We will arrange this appointmen t for her. [id number] Sebas Ng MD Main Office [address] [address] 03/29/2016 14:55:01 03/29/2016 15:51:25 Generalized anxiety disorder 20747615 F41.1 Start medication s as directed fo anxiety , depression adn panic d/o. Pt. is advised to call and scheduled shaq for therapy . F/u 4 weeks. Panic disorder 365046361 F41.0 Fatigue 67698883 R53.83 Major depr essive disorder 266008581 F32.9 [id number] Kvng Wang MD Main Office [address] [place] [address] 05/12/2016 10:33:51 05/12/2016 12:27:15 Upper respiratory infection 12326119 J06.9 Sx x 1 week, worsening, symptomati c treatment- hydration, tylenol or ibuprofen for fever/ pain as needed, rest, tea with honey, soups. Health Concerns Section Related Observation LastModified by Organization Detai ls LastModified Time None Recorded Concern Status LastModified by Organization Details LastModified Time None Recorded Advance Directives Directive None Recorded Payers Encounter Date Sequence Insurance Name Policy Number Policy Ramos Covered Member ID Ramos Member ID Guarantor Name 04/29/2014 1 [facility] [id number] Aaron Sarabia [id number] Aaron Sarabia 09/04/2014 1 [facility] [id number] Aaron Sarabia [id number] Aaron Sarabia 05/07/2015 1 [facility] [id number] Aaron Sarabia [id number] Aaron Sarabia 03/29/2016 1 [facility] [id number] Aaron Sarabia [id number] Aaron Sarabia 05/12/2016 1 [facility] [id number] Aaron Sarabia [id number] Aaron Sarabia Notes Date Note Type [...] . NO recent labs. Sebas Ng MD [address] [address], [place], [address], [facility] 03/29/2016 19:39:40 05/12/2016 text/html Sinusitis/Allerg yR eported [...] ibuprofen with some relief. Kvng Wang MD [address], [address], [facility] 05/12/2016 12:17:20 OBGyn Episode No OBEpisode recorded.
--- NOTE | 2024-08-28 15:06 | A.OFFPC_ITS ---
Vital Signs 08/28/24 15:18 Height 4 ft 11 in Weight 107 lb BMI 21.6 BP 110/56 L Blood Pressure Location Rt brachial Position Sitting Respiration 16 Pulse 84 Pulse Source Pulse Oximeter Temp 98.1 F Temp Source Oral Pulse Oximetry (%) 99 Oxygen Delivery Method Room Air Intake Visit Reasons: she is having bood of her rectum Allergies mold Allergy (Intermediate, Verified 08/28/24 15:21) Runny Nose Seasonal Allergies Allergy (Intermediate, Verified 08/28/24 15:21) Runny Nose Medication List - Last Reconciled 08/28/24 by Fco Serna CNP ascorbic acid (vitamin C) ER mg PO atorvastatin 40 mg PO DAILY cholecalciferol (vitamin D3) 25 mcg PO DAILY fluticasone furoate 27.5 mcg/actuation (Flonase Sensimist) 1 spray intranasal DAILY magnesium hydroxide (Dulcolax (magnesium hydroxide)) 500 mL PO DAILY PRN naproxen 500 mg PO BID PRN Tobacco use date assessed: 05/09/24 Dental Screening Dental Screen Date: 04/04/24 [facility] Medical History No known health problems Surgical History No pertinent past surgical history Family History Father Dementia No family history of mental disorder Mother Diabetes Lung cancer No family history of mental disorder Social History (Updated 06/26/24 @ 11:20 by Sandor Palacios) Household Members: Spouse and Children Housing: House Alcohol intake: never Patient Tobacco Use Status: Never used Tobacco e-Cigarette/Vaping Use: Never Used Second Hand Smoke Exposure: No service: No Current occupational status: employed Current occupation: [employer] Current occupational exposures/hazards: No Sexual orientation: Straight/Heterosexual Gender identity: Female Cognitive needs: No Hearing needs: No Vision needs: No Questionnaire PHQ-9 Over the last 2 weeks, how often have you been bothered by any of the following problems? 2. Feeling down, depressed, or hopeless: not at all 3. Trouble falling or staying asleep, or sleeping too much: more than half the days 4. Feeling tired or having little energy: not at all 5. Poor appetite or overeating: not at all 7. Trouble concentrating on things, such as reading the newspaper or watching television: not at all 8. Moving or speaking so slowly that other people could have noticed. Or the opposite - being so fidgety or restless that you have been moving around a lot more than usual: not at all 9. Thoughts that you would be better off or of hurting yourself in some way: not at all Source: Developed by Drs. Patel Dorado, Taina Grimes, Last Gilbert and colleagues, with an educational noman from [employer]. Thrive Questionnaire Date Thrive assessed: 04/04/24 I am a: Patient What is your living situation today?: I have a steady place to live Within the past 12 months, did the food you bought not last and you didn't have the money to get more?: I choose not to answer this question Within the past 12 months, did you worry whether your food would run out before you got money to buy more?: I choose not to answer this question Do you have trouble paying for medicines?: No Do you have trouble getting transportation to medical appointments?: No Do you have trouble paying your heating and electricity bill?: No Do you have trouble taking care of your child, family member or friend?: No Do you have trouble with day-to-day activities such as bathing, preparing meals, shopping, managing finances, etc.?: No Are you currently unemployed and looking for a job?: No Are you interested in more education?: I choose not to answer this question Please select the resources that you would like help with: None Currently or been in a relationship where the following occur: No concerns reported THRIVE Score: 0 AUDIT C Alcohol Use Questionnaire (AUDIT-C) 1. How often do you have a drink containing alcohol?: Never Total Score: 0 MELISA-7 AMB Questionnaire MELISA-7 Date MELISA - 7 assessed: 04/04/24 Feeling nervous, anxious, or on edge: 0 = Not at all Not being able to stop or control worryin = Not at all Worrying too much about different things: 1 = Several days Trouble relaxin = Not at all Being so restless that it is hard to sit still: 0 = Not at all Becoming easily annoyed or irritable: 1 = Several days Feeling afraid as if something awful might happen: 0 = Not at all Total MELISA-7 score (0-4 normal; 5-9 mild; 10-14 moderate; 15-21 severe): 2 Source: Developed by Drs. Patel Dorado, Taina Grimes, Last Gilbert and colleagues, with an educational noman from [employer]. Review of Systems Const Details: Const Denies chills, Denies fatigue, Denies fever(s), Denies headache(s) and Denies weakness ENT Denies dizziness and Denies headache(s) Card Denies chest pain, Denies lightheadedness, Denies dyspnea and Denies other (Palpitations) Resp Denies cough, Denies dyspnea, Denies wheezing and Denies other ( shortness of breath) GI Denies abdominal pain, Denies melena, Denies hematochezia, Denies change in bowel habits, Denies dyspepsia and Denies nausea Denies hematuria and Denies dysuria Musc Denies abnormal gait, Denies myalgias, Denies arthralgias, Denies numbness and Denies tingling Skin/Breast Denies rash, Denies unusual bruising and Denies wounds Neuro Denies abnormal gait, Denies dizziness, Denies headache(s), Denies memory loss, Denies numbness, Denies Sensory deficit (Neuro), Denies tingling and Denies weakness Psych Denies anxiety, Denies depression, Denies memory loss Endo Denies cold intolerance, Denies fatigue, Denies heat intolerance, Denies polydipsia and Denies polyuria Aller/Immun Denies wheezing Physical exam (Primary Care) Tobacco/Smoking Status: Tobacco use Status Tobacco use date assessed 05/09/24 05/09/24 15:59 Patient Tobacco Use Status Never used Tobacco 06/27/24 08:46 e-Cigarette/Vaping Use Never Used 05/09/24 14:25 Thrive Assessment: Date of Thrive Assessment Date Thrive assessed 04/04/24 05/09/24 14:25 Currently or been in a relationship where the following occur: No concerns reported Const Other: General: no acute distress and well developed Nutritional Appearance: well nourished Orientation/consciousness: patient oriented x3 HENMT Head: Yes normocephalic and Yes atraumatic Eyes General: appearance normal, both eyes and all related structures Pupils: Equal, round and reactive pupils present EOM: EOMs intact bilaterally Resp Effort & Inspection: normal respiratory effort Auscultation: clear to auscultation bilaterally Cardio Rate: regular rate Rhythm: regular rhythm Heart sounds: S1 normal heart sound present, S2 normal heart sound present, no gallops, no murmurs and no rubs GI Palpation (GI): No Abdominal aortic bruit present, Soft to palpation, nontender, No hepatosplenomegaly present and No Rebound tenderness present Auscultation: normal bowel sounds General: Yes no CVA tenderness Back/Spine/Pelvis Back: no CVA tenderness Cervical Spine: cervical ROM normal and No Cervical spine tenderness Thoracic/Lumbar Spine: thoraco-lumbar ROM normal, No pain with thoraco-lumbar ROM, No thoracic spinal tenderness and No lumbar spinal tenderness Extrem General: Yes normal to inspection, No edema and No calf tenderness Skin General: warm and dry. Normal skin color. Normal skin turgor Neuro General: patient oriented x3, gait normal and no focal neuro deficit Cranial nerves: Yes Equal, round and reactive pupils present Cognition (Neuro): normal cognition Gait exam (Neuro): Normal gait present Sensory Exam: No Sensory deficit (Neuro) Psych Appearance: grossly normal Affect: normal affect Attitude: cooperative Thought process: Normal thought process present Coding
--- NOTE | 2024-08-28 15:06 | A.OFFPC_ITS ---
Vital Signs 08/28/24 15:18 08/28/24 16:03 Height 4 ft 11 in Weight 107 lb BMI 21.6 BP 110/56 L 110/70 Blood Pressure Location Rt brachial Lt brachial Position Sitting Sitting Respiration 16 Pulse 84 Pulse Source Pulse Oximeter Temp 98.1 F Temp Source Oral Pulse Oximetry (%) 99 Oxygen Delivery Method Room Air Intake Visit Reasons: she is having bood of her rectum Intake Note: patient here c/o having blood in her rectum for the past 3 days Drying Machine Operator Required: Yes Drying Machine Operator Language: Georgian Information Interpreted: non-clinical & clinical Is last menstrual period known: No Post menopausal: No Patient : No Allergies mold Allergy (Intermediate, Verified 08/28/24 15:21) Runny Nose Seasonal Allergies Allergy (Intermediate, Verified 08/28/24 15:21) Runny Nose Medication List - Last Reconciled 08/28/24 by Fco Serna CNP ascorbic acid (vitamin C) ER mg PO atorvastatin 40 mg PO DAILY cholecalciferol (vitamin D3) 25 mcg PO DAILY fluticasone furoate 27.5 mcg/actuation (Flonase Sensimist) 1 spray intranasal DAILY magnesium hydroxide (Dulcolax (magnesium hydroxide)) 500 mL PO DAILY PRN naproxen 500 mg PO BID PRN Tobacco use date assessed: 05/09/24 Dental Screening Dental Screen Date: 08/28/24 Did you have a dental visit in the last 12 months?: Yes Did you have a dental problem in the last 6 months where you did not have access to dental care?: No Was dental information given to patient?: Patient has dentist HPI HPI Comments History of Present Illness Details 54-year-old Georgian-speaking female pres ents with complaints of bright red blood in her stool daily for the past three days. No blood in her stool today. She notes that the blood is moderate amount. She notes intermittent mild pain to her left lower abdominal pain, lasting 10 minutes, for the past four days. She denies straining with defecation. She denies nausea, vomiting, diarrhea, or constipation. She denies acute symptoms at this time. She notes that she was seen at [facility] ED yesterday for same complaint. Labs were unremarkable. She was advised to follow up with her PCP to have a colonoscopy. [facility] ED notes 08/27/2024 Patient evaluated for bloody stools and mild left lower quadrant abdominal pain for the last few days. She endorsed frequent constipation. CBC, CMP, and lactate were unremarkable. Rectal exam without obvious external/internal hemorrhoids or rectal bleeding. No reproducible abdominal tenderness on exam. She was discharged home with recommendation to follow-up with PCP for further evaluation. Colonoscopy was recommended by her PCP on 04/04/2024. However, she declined colonoscopy. She is willing to be referred for a colonoscopy at this time. She notes that she has not been taking her atorvastatin. Interpretation by professional hydraulic spinner via electronic tablet. [facility] Medical History No known health problems Surgical History No pertinent past surgical history Family History Father Dementia No family history of mental disorder Mother Diabetes Lung cancer No family history of mental disorder Social History (Updated 06/26/24 @ 11:20 by Sandor Palacios) Household Members: Spouse and Children Housing: House Alcohol intake: never Patient Tobacco Use Status: Never used Tobacco e-Cigarette/Vaping Use: Never Used Second Hand Smoke Exposure: No service: No Current occupational status: employed Current occupation: [employer] Current occupational exposures/hazards: No Sexual orientation: Straight/Heterosexual Gender identity: Female Cognitive needs: No Hearing needs: No Vision needs: No Questionnaire PHQ-9 Over the last 2 weeks, how often have you been bothered by any of the following problems? 1. Little interest or pleasure in doing things: not at all 2. Feeling down, depressed, or hopeless: not at all 3. Trouble falling or staying asleep, or sleeping too much: more than half the days 4. Feeling tired or having little energy: not at all 5. Poor appetite or overeating: not at all 6. Feeling bad about yourself - or that you are a failure or have let yourself or your family down: not at all 7. Trouble concentrating on things, such as reading the newspaper or watching television: not at all 8. Moving or speaking so slowly that other people could have noticed. Or the opposite - being so fidgety or restless that you have been moving around a lot more than usual: not at all 9. Thoughts that you would be better off or of hurting yourself in some way: not at all Total score: 2 Depression Screening Interpretation: Negative Depression Screening Done: Yes 64332 - PHQ-9 Billing: Yes Source: Developed by Drs. Patel Dorado, Taina Grimes, Last Gilbert and colleagues, with an educational noman from [employer]. Thrive Questionnaire Date Thrive assessed: 08/28/24 I am a: Patient What is your living situation today?: I have a steady place to live Within the past 12 months, did the food you bought not last and you didn't have the money to get more?: I choose not to answer this question Within the past 12 months, did you worry whether your food would run out before you got money to buy more?: I choose not to answer this question Do you have trouble paying for medicines?: No Do you have trouble getting transportation to medical appointments?: No Do you have trouble paying your heating and electricity bill?: No Do you have trouble taking care of your child, family member or friend?: No Do you have trouble with day-to-day activities such as bathing, preparing meals, shopping, managing finances, etc.?: No Are you currently unemployed and looking for a job?: No Are you interested in more education?: I choose not to answer this question Please select the resources that you would like help with: None Currently or been in a relationship where the following occur: No concerns reported THRIVE Score: 0 AUDIT C Alcohol Use Questionnaire (AUDIT-C) 1. How often do you have a drink containing alcohol?: Never Total Score: 0 MELISA-7 AMB Questionnaire MELISA-7 Date MELISA - 7 assessed: 08/28/24 Feeling nervous, anxious, or on edge: 0 = Not at all Not being able to stop or control worryin = Not at all Worrying too much about different things: 1 = Several days Trouble relaxin = Not at all Being so restless that it is hard to sit still: 0 = Not at all Becoming easily annoyed or irritable: 1 = Several days Feeling afraid as if something awful might happen: 0 = Not at all Total MELISA-7 score (0-4 normal; 5-9 mild; 10-14 moderate; 15-21 severe): 2 Source: Developed by Drs. Patel Dorado, Taina Grimes, Last Gilbert and colleagues, with an educational noman from [employer]. Review of Systems Const Details: Const Denies chills, Denies fatigue, Denies fever(s), Denies headache(s) and Denies weakness ENT Denies dizziness and Denies headache(s) Card Denies chest pain, Denies lightheadedness, Denies dyspnea and Denies other (Palpitations) Resp Denies cough, Denies dyspnea, Denies wheezing and Denies other ( shortness of breath) GI Reports as per HPI Denies hematuria and Denies dysuria Musc Denies abnormal gait, Denies myalgias, Denies arthralgias, Denies numbness and Denies tingling Skin/Breast Denies rash, Denies unusual bruising and Denies wounds Neuro Denies abnormal gait, Denies dizziness, Denies headache(s), Denies memory loss, Denies numbness, Denies Sensory deficit (Neuro), Denies tingling and Denies weakness Psych Denies anxiety, Denies depression, Denies memory loss Endo Denies cold intolerance, Denies fatigue, Denies heat intolerance, Denies polydipsia and Denies polyuria Aller/Immun Denies wheezing Physical exam (Primary Care) Vital Signs: Last Vital Signs Temp 98.1 F 08/28/24 15:18 Pulse 84 08/28/24 15:18 Resp 16 08/28/24 15:18 BP 110/56 L 08/28/24 15:18 Pulse Ox 99 08/28/24 15:18 Oxygen Delivery Method Room Air 08/28/24 15:18 BMI result Body Mass Index 21.6 Tobacco/Smoking Status: Tobacco use Status Tobacco use date assessed 05/09/24 08/28/24 15:08 Patient Tobacco Use Status Never used Tobacco 08/28/24 15:08 e-Cigarette/Vaping Use Never Used 08/28/24 15:08 Depression Screening Interpretation: Negative Thrive Assessment: Date of Thrive Assessment Date Thrive assessed 04/04/24 08/28/24 15:08 Currently or been in a relationship where the following occur: No concerns reported Const Other: General: no acute distress and well developed Nutritional Appearance: well nourished Orientation/consciousness: patient oriented x3 [facility] Head: Yes normocephalic and Yes atraumatic Eyes General: appearance normal, both eyes and all related structures Pupils: Equal, round and reactive pupils present EOM: EOMs intact bilaterally Resp Effort & Inspection: normal respiratory effort Auscultation: clear to auscultation bilaterally Cardio Rate: regular rate Rhythm: regular rhythm Heart sounds: S1 normal heart sound present, S2 normal heart sound present, no gallops, no murmurs and no rubs GI Palpation (GI): Left abdominal tenderness to palpation, Abdomen is soft and nondistended, No Abdominal aortic bruit present, No hepatosplenomegaly present and No Rebound tenderness present Auscultation: normal bowel sounds General: Yes no CVA tenderness Back/Spine/Pelvis Back: no CVA tenderness Cervical Spine: cervical ROM normal and No Cervical spine tenderness Thoracic/Lumbar Spine: thoraco-lumbar ROM normal, No pain with thoraco-lumbar RO M, No thoracic spinal tenderness and No lumbar spinal tenderness Extrem General: Yes normal to inspection, No edema and No calf tenderness Skin General: warm and dry. Normal skin color. Normal skin turgor Neuro General: patient oriented x3, gait normal and no focal neuro deficit Cranial nerves: Yes Equal, round and reactive pupils present Cognition (Neuro): normal cognition Gait exam (Neuro): Normal gait present Sensory Exam: No Sensory deficit (Neuro) Psych Appearance: grossly normal Affect: normal affect Attitude: cooperative Thought process: Normal thought process present Coding Level of Care Code Est Pt Level 4 (93154) Diagnoses Bloody stools K92.1 Abdominal pain R10.9 Hyperlipidemia E78.5 Additional Codes PHQ-9 - 48652 - PHQ-9 Billing: Yes ([id number]) Assessment & Plan Assessment & Plan (1) Bloody stools: Code(s): K92.1 - Melena Category: Medical Plan: Bright red, moderate amount of bloody stools daily for the past three days. No bloody stool today. Intermittent mild pain to her left upper abdominal pain, lasting 10 minutes, for the past four days. No straining with defecation. No nausea, vomiting, diarrhea, or constipation. Adequate hydration, fruits, vegetables, and fibers encouraged to prevent constipation. Referred to [facility] gastroenterology for a colonoscopy. Follow-up with worsening or new signs and symptoms. Go to the ED with severe bleeding. Verbalized understanding and agreed with treatment plan. (2) Abdominal pain: Code(s): R10.9 - Unspecified abdominal pain Category: Medical Plan: Mild intermittent right lower abdominal pain the past 4 days. Left abdominal tenderness to palpation, Abdomen is soft and nondistended. Active bowel sounds x4. Plan as above. GI referral made for abdominal pain, bloody stools and colonoscopy. Follow-up with worsening or new symptoms. Verbalized understanding and agreed with the treatment plan. (3) Hyperlipidemia: Code(s): E78.5 - Hyperlipidemia, unspecified Category: Medical Plan: She has not been taking atorvastatin. Instructed on the risks and complications of elevated cholesterol levels and encouraged to take atorvastatin as prescribed. Advised to limit foods high in saturated fat and avoid foods high in trans fat. Routine exercise encouraged. Follow-up as planned. Verbalized understanding and agreed with the treatment plan. Orders: Referrals Gastroenterology Referral K92.1 - Melena, R10.9 - Unspecified abdominal pain, Z12.11 - Encounter for screening for malignant neoplasm of colon Medications: Discontinued naproxen Discontinued Reason: Doctor's Order 500 mg PO BID PRN 30 tabs 1RF pain
[2024-08-28 15:18] VITALS: BP 110/56; PULSE 84; RESP 16; TEMP 36.7; O2SAT 99; BMI 21.6
[2024-08-28 16:03] VITALS: BP 110/70
== END 2024-08-28 17:05 ==
PROVIDERS: PCP Nurse Practitioner Family; Visit Provider Nurse Practitioner Family
DX: K92.1 Melena (principal); R10.9 Unspecified abdominal pain; E78.5 Hyperlipidemia, unspecified

== ENCOUNTER → 2024-08-28 14:58 | Outpatient (BNVA) | payer OTHER, SELFPAY | PROVIDERS: PCP Nurse Practitioner Family; Visit Provider Nurse Practitioner Family | DX: K92.1 Melena (principal); R10.9 Unspecified abdominal pain; E78.5 Hyperlipidemia, unspecified | CPT/HCPCS: 96127; 99212 ==

== ENCOUNTER 2024-09-06 09:51 | Outpatient (AMB) | payer OTHER, SELFPAY ==
--- NOTE | 2024-09-06 09:52 | MHC.OFFVIS ---
Vital Signs 09/06/24 09:53 Height 4 ft 11 in Weight 107 lb BMI 21.6 Intake Visit Reasons: New Pt - Bilateral Hand Pain, numbness & tingling Intake Note: Anjana is a 54 year old right hand dominant female who presents today as a new patient for evaluation and treatment of bilateral hand pain, numbness and tingling- right hand is worse. EMG done 08/07/24. Patient reports numbness and tingling occurs everyday, constant. She explains it worsens when lifting or doing strong work with her hands. Patients reports she is not at the point of dropping things but she does experience trouble opening and closing jars. 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 She has not tried OT however she tried a brace on her right hand which was discontinued when she felt better. Reports right middle finger locking. Denies injuries or surgeries to the hands. Jig Grinder Set Up Operator Required: Yes Jig Grinder Set Up Operator Language: Plant Custodian Services: Jig Grinder Set Up Operator Present Jig Grinder Set Up Operator Name: KALI Yates/UMAIR Information Interpreted: clinical only Allergies mold Allergy (Intermediate, Verified 09/06/24 10:06) Runny Nose Seasonal Allergies Allergy (Intermediate, Verified 09/06/24 10:06) Runny Nose HPI HPI New Pt - Bilateral Hand Pain, numbness & tingling: Details: Anjana is a 54 year old right hand dominant female who presents today as a new patient for evaluation and treatment of bilateral hand pain, numbness and tingling- right hand is worse. EMG done 08/07/24. Patient reports numbness and tingling occurs everyday, constant. She explains it worsens when lifting or doing strong work with her hands. Patients reports she is not at the point of dropping things but she does experience trouble opening and closing jars. 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 She has not tried OT however she tried a brace on her right hand which was discontinued when she felt better. Reports right middle finger locking. Denies injuries or surgeries to the hands. [facility] Medical History No known health problems Surgical History No pertinent past surgical history Family History Father Dementia No family history of mental disorder Mother Diabetes Lung cancer No family history of mental disorder Social History (Updated 09/06/24 @ 09:56 by KALI Santoro) Household Members: Spouse and Children Housing: House Alcohol intake: never Patient Tobacco Use Status: Never used Tobacco e-Cigarette/Vaping Use: Never Used Second Hand Smoke Exposure: No service: No Current occupational status: employed Current occupation: [employer], rt handed Current occupational exposures/hazards: No Sexual orientation: Straight/Heterosexual Gender identity: Female Cognitive needs: No Hearing needs: No Vision needs: No Review of Systems Const All systems reviewed & are unremarkable except as noted in HPI and below Physical Exam Vital Signs: BMI result Body Mass Index 21.6 Extrem Other: Neuro: Normal sensation of the tips of all digits of bilateral hands in the office today No thenar or intrinsic wasting. Good APB muscle firing and good finger cross. Vascular: Capillary refill brisk. ROM: Patient can make a fist and extend all their digits. Skin: No lacerations or abrasions noted. General: No ecchymosis. No erythema or evidence of infection. Results Reviewed Results Reviewed: IMPRESSION: 1. This is a normal study. 2. There is no electrodiagnostic evidence for median neuropathy, ulnar neuropathy, brachial plexopathy, or cervical radiculopathy. Thank you for your kind referral. Ladonna Chand MD, RICCARDO Assessment & Plan Assessment & Plan (1) Numbness and tingling in both hands: Code(s): R20.0 - Anesthesia of skin; R20.2 - Paresthesia of skin Category: Medical Plan 1. Numbness and tingling of both hands Negative EMG Patient is educated about this condition Patient is educated about the treatment options available in the setting of the negative EMG At this time, patient will be referred to occupational therapy for range of motion and strengthening of bilateral hands in the setting of numbness, tingling, and diminished strength with a negative EMG Patient was also provided with night splints to be worn to prevent worsening symptoms at night Patient is educated that if in 6 months she is still experiencing numbness and tingling, she can call us for reassessment and potential referral for repeat EMG Patient was amenable to this plan Patient will follow-up as needed with acute concerns Coding Level of Care Code New Pt Level 3 (34911) Diagnoses Numbness and tingling in both hands R20.0; R20.2
[2024-09-06 09:53] VITALS: BMI 21.6
--- OUTSIDE RECORDS SUMMARY | 2024-09-06 10:47 | XMS_ITS | Data Portability ---
Author Organization [facility], Main Office Address [address] [facility] [address] [place] [id number] Care Team Providers Care Home Health Lpn Name Role Phone EVANGELISTAKVNG LOUIS Primary Care [...] oning of left arm 2014 015 elena [facility], [address] [place] [address], [phone], 5 10:55:15 Procedures None record ed. Surgeries None record ed. Imaging electr ocardi ogram 2013 014 [email or web address] In-Office Order, Internal Use Only DO Not Attach Compendium DO Not Attach Compendium, Do Not Delete/merge, [id number] 4 15:59:36 Medication Orders Zithro max Z-Stef 250 mg tablet 2015 016 [id number] [id number], [address] [place], [address], 6 04:32:13 benzon atate 200 mg capsul e 2015 016 [facility], [address] [place], [address], 6 04:32:22 clonaz epam 0.5 mg tablet 2015 016 [facility], [address] [place], [address], 6 04:31:50 sertra line 50 mg tablet 2015 016 [facility], [address] [place], [address], 6 04:31:50 Robaxi n-750 750 mg tablet 2014 015 [email or web address] [facility], [address] [place], [address], 5 10:52:46 desoni de 0.05 % topica l ointme nt 2014 015 [facility], [address] [place], [address], 5 10:58:14 naprox en 500 mg tablet 2014 015 [facility], [address] [place], [address], 5 08:20:27 propra nolol ER 60 mg capsul e,24 hr,ext ended releas e 2013 [address], [address] [place], [address], 6 15:18:01 sumatr iptan 50 mg tablet 2013 [address]/[facility]acy [facility], [address] [place], [address], 6 15:17:56 Patient TargetsNo targets recorded. Patient Instructions Encounter Date Encounter Id Patient Instructions Last Modified By Organization Details Last Modified Time 04/29/2014 [id number] To call or retur n for worsening [...] care. malissa Not available 04/29/2014 15:59:36 09/04/2014 [id number] bursitis de hombro: ejercicios - [shoulder bursitis: [...] care. dimasowski Not available 09/05/2014 08:20:28 05/07/2015 [id number] To call or retur n for worsening [...] care. [email or web address] Not available 05/07/2015 13:15:10 03/29/2016 [id number] anxiety disorder : care instructions Not available 06/25/2016 04:31:53 I have reviewed the note and agree with the assessment and plan of care. niki Not available 03/29/2016 19:39:36 05/12/2016 [id number] infecci??n de la s v?? respiratorias altas [...] DO Not Attach Compendium, Do Not Delete/merge, [id number] 04/29/2014 13:29:19 04/29/20 14 04/29/2014 thyro id panel free T4 1.12 NG/dL (0.70- 1.80) Not Available [facility] (Centralized Electronic Ordering - All Locations) Patient Can Go To The Location Of Their Choice, [id number] 05/19/2014 15:01:25 04/29/20 14 04/29/2014 thyro id panel TSH 2.05 mIU/m L (0.4-4 .0) Not Available [facility] (Centralized Electronic Ordering - All Locations) Patient Can Go To The Location Of Their Choice, [id number] 05/19/2014 15:01:25 04/29/20 14 04/29/2014 BMP, serum or plasm a glucose 83 mg/dL (70-99 ) Not Available [facility] (Centralized Electronic Ordering - All Locations) Patient Can Go To The Location Of Their Choice, [id number] 05/19/2014 15:01:23 04/29/20 14 04/29/2014 BMP, serum or plasm a BUN 13 mg/dL (6-20) Not Available [facility] (Centralized Electronic Ordering - All Locations) Patient Can Go To The Location Of Their Choice, [id number] 05/19/2014 15:01:23 04/29/20 14 04/29/2014 BMP, serum or plasm a creatinine 0.5 mg/dL (0.5-1 .0) Not Available [facility] (Centralized Electronic Ordering - All Locations) Patient Can Go To The Location Of Their Choice, [id number] 05/19/2014 15:01:23 04/29/20 14 04/29/2014 BMP, serum or plasm a sodium 140 mmol/ L (133-1 45) Not Available [facility] (Centralized Electronic Ordering - All Locations) Patient Can Go To The Location Of Their Choice, [id number] 05/19/2014 15:01:23 04/29/2004/29/2014 BMP, serum or plasm a potassium 4.7 mmol/ L (3.6-5 .2) Not Available [facility] (Centralized Electronic Ordering - All Locations) Patient Can Go To The Location Of Their Choice, 05/19/2014 15:01:23 04/29/20 14 04/29/2014 BMP, serum or plasm a chloride 102 mmol/ L (98-10 7) Not Available [facility] (Centralized Electronic Ordering - All Locations) Patient Can Go To The Location Of Their Choice, 05/19/2014 15:01:23 04/29/20 14 04/29/2014 BMP, serum or plasm a bicarbonate 30 mmol/ L (22-29 ) high Not Available [facility] (Centralized Electronic Ordering - All Locations) Patient Can Go To The Location Of Their Choice, 05/19/2014 15:01:23 04/29/20 14 04/29/2014 BMP, serum or plasm a anion gap 8 (4-17) Not Available [facility] (Centralized Electronic Ordering - All Locations) Patient Can Go To The Location Of Their Choice, 05/19/2014 15:01:23 04/29/2004/29/2014 BMP, serum or plasm a calcium 10.3 mg/dL (8.6-1 0.5) AGUILA MARTINEZ CALCI UM LEVEL S SHOUL D BE GILBERTO MARTINEZ ON A SEPAR ATE DAY CLINI [facility]ALL INDIC ATED. Not Available [facility] (Centralized Electronic Ordering - All Locations) Patient Can Go To The Location Of Their Choice, 05/19/2014 15:01:23 04/29/20 14 04/29/2014 BMP, serum or plasm a est GFR non >60 mL/mi n/1.7 3_M2 THE MDRD STUDY 'S ESTIM ATED GFR EQUAT ION HAS NOT BEEN VALID ATED IN CHILD SHAINA (<18 YRS), PREGN ANT WOMEN , THE ELDER LY (AGE >70 YRS), RACIA L OR ETHNI C SUBGR OUPS OTHER THAN CAUCA SIALOLY AND AFRIC AN AMERI CANS. Not Available [facility] (Centralized Electronic Ordering - All Locations) Patient Can Go To The Location Of Their Choice, 05/19/2014 15:01:23 04/29/2004/29/2014 BMP, serum or plasm a est GFR >60 mL/mi n/1.7 3_M2 THE MDRD STUDY 'S ESTIM ATED GFR EQUAT ION HAS NOT BEEN VALID ATED IN CHILD SHAINA (<18 YRS), PREGN ANT WOMEN , THE ELDER LY (AGE >70 YRS), RACIA L OR ETHNI C SUBGR OUPS OTHER THAN [place] SIALOLY AND AFRIC AN AMERI CANS. Not Available [facility] (Centralized Electronic Ordering - All Locations) Patient Can Go To The Location Of Their Choice, 05/19/2014 15:01:23 04/29/2004/29/2014 CBC w/ auto diff WBC 4.7 K/mm3 (4.0-1 1.0) Not Available [facility] (Centralized Electronic Ordering - All Locations) Patient Can Go To The Location Of Their Choice, 05/19/2014 15:00:45 04/29/2004/29/2014 CBC w/ auto diff RBC 4.37 M/mm3 (4.20- 5.40) Not Available [facility] (Centralized Electronic Ordering - All Locations) Patient Can Go To The Location Of Their Choice, 05/19/2014 15:00:45 04/29/2004/29/2014 CBC w/ auto diff HGB 13.1 gm/dL (12.0- 16.0) Not Available [facility] (Centralized Electronic Ordering - All Locations) Patient Can Go To The Location Of Their Choice, 05/19/2014 15:00:45 04/29/2004/29/2014 CBC w/ auto diff HCT 39.6 % (37.0- 47.0) Not Available [facility] (Centralized Electronic Ordering - All Locations) Patient Can Go To The Location Of Their Choice, 05/19/2014 15:00:45 04/29/2004/29/2014 CBC w/ auto diff MCV 90.6 fL (80.0- 100.0) Not Available [facility] (Centralized Electronic Ordering - All Locations) Patient Can Go To The Location Of Their Choice, [id number] 05/19/2014 15:00:45 04/29/20 14 04/29/2014 CBC w/ auto diff MCH 30.0 pg (27.0- 34.0) Not Available [facility] (Centralized Electronic Ordering - All Locations) Patient Can Go To The Location Of Their Choice, 05/19/2014 15:00:45 04/29/20 14 04/29/2014 CBC w/ auto diff MCHC 33.1 % (33.0- 37.0) Not Available [facility] (Centralized Electronic Ordering - All Locations) Patient Can Go To The Location Of Their Choice, 05/19/2014 15:00:45 04/29/20 14 04/29/2014 CBC w/ auto diff plt 272 K/mm3 (150-4 60) Not Available [facility] (Centralized Electronic Ordering - All Locations) Patient Can Go To The Location Of Their Choice, 05/19/2014 15:00:45 04/29/20 14 04/29/2014 CBC w/ auto diff RDW-SD 39.8 fL (<47.0 ) Not Available [facility] (Centralized Electronic Ordering - All Locations) Patient Can Go To The Location Of Their Choice, 05/19/2014 15:00:45 04/29/20 14 04/29/2014 CBC w/ auto diff MPV 9.8 fL (9.4-1 2.4) Not Available [facility] (Centralized Electronic Ordering - All Locations) Patient Can Go To The Location Of Their Choice, 05/19/2014 15:00:45 04/29/20 14 04/29/2014 CBC w/ auto diff automated NRBC 0.0 #/100 _WBC' s Not Available [facility] (Centralized Electronic Ordering - All Locations) Patient Can Go To The Location Of Their Choice, 05/19/2014 15:00:45 04/29/20 14 04/29/2014 CBC w/ auto diff abs. NRBC 0.0 K/mm3 Not Available [facility] (Centralized Electronic Ordering - All Locations) Patient Can Go To The Location Of Their Choice, [id number] 05/19/2014 15:00:45 04/29/20 14 04/29/2014 CBC w/ auto diff neut # 2.3 K/mm3 (1.3-7 .0) Not Available [facility] (Centralized Electronic Ordering - All Locations) Patient Can Go To The Location Of Their Choice, 05/19/2014 15:00:45 04/29/20 14 04/29/2014 CBC w/ auto diff lymph # 1.9 K/mm3 (0.8-3 .1) Not Available [facility] (Centralized Electronic Ordering - All Locations) Patient Can Go To The Location Of Their Choice, 05/19/2014 15:00:45 04/29/20 14 04/29/2014 CBC w/ auto diff mono# 0.4 K/mm3 (0.4-0 .9) Not Available [facility] (Centralized Electronic Ordering - All Locations) Patient Can Go To The Location Of Their Choice, 05/19/2014 15:00:45 04/29/20 14 04/29/2014 CBC w/ auto diff eo # 0.0 K/mm3 (0.0-0 .4) Not Available [facility] (Centralized Electronic Ordering - All Locations) Patient Can Go To The Location Of Their Choice, 05/19/2014 15:00:45 04/29/20 14 04/29/2014 CBC w/ auto diff baso # 0.0 K/mm3 (0.0-0 .1) Not Available [facility] (Centralized Electronic Ordering - All Locations) Patient Can Go To The Location Of Their Choice, 05/19/2014 15:00:45 04/29/20 14 04/29/2014 CBC w/ auto diff abs. imm gran 0.0 K/mm3 Not Available [facility] (Centralized [facility] Ordering - All Locations) Patient Can Go To The Location Of Their Choice, 05/19/2014 15:00:45 04/29/20 14 04/29/2014 CBC w/ auto diff neut 49.0 % (44-76 ) Not Available [facility] (Centralized Electronic Ordering - All Locations) Patient Can Go To The Location Of Their Choice, 05/19/2014 15:00:45 04/29/20 14 04/29/2014 CBC w/ auto diff lymph 40.3 % (15-43 ) Not Available [facility] (Centralized Electronic Ordering - All Locations) Patient Can Go To The Location Of Their Choice, 05/19/2014 15:00:45 04/29/20 14 04/29/2014 CBC w/ auto diff monocyte 8.9 % (4.5-1 0.5) Not Available [facility] (Centralized Electronic Ordering - All Locations) Patient Can Go To The Location Of Their Choice, 05/19/2014 15:00:45 04/29/20 14 04/29/2014 CBC w/ auto diff eo 0.8 % (0-6) Not Available [facility] (Centralized Electronic Ordering - All Locations) Patient Can Go To The Location Of Their Choice, 05/19/2014 15:00:45 04/29/20 14 04/29/2014 CBC w/ auto diff baso 0.6 % (0-2) Not Available [facility] (Centralized Electronic Ordering - All Locations) Patient Can Go To The Location Of Their Choice, 05/19/2014 15:00:45 04/29/20 14 04/29/2014 CBC w/ auto diff imm gran 0.4 % (0.0-0 .6) Not Available [facility] (Centralized Electronic Ordering - All Locations) Patient Can Go To The Location Of Their Choice, 05/19/2014 15:00:45 03/29/2003/29/2016 CBC w/ auto diff WBC 5.9 K/mm3 (4.0-1 1.0) Not Available [facility] (Centralized Electronic Ordering - All Locations) Patient Can Go To The Location Of Their Choice, 03/29/2016 19:38:18 03/29/2003/29/2016 CBC w/ auto diff RBC 4.39 M/mm3 (4.20- 5.40) Not Available [facility] (Centralized Electronic Ordering - All Locations) Patient Can Go To The Location Of Their Choice, 03/29/2016 19:38:18 03/29/2003/29/2016 CBC w/ auto diff HGB 12.8 gm/dL (12.0- 16.0) Not Available [facility] (Centralized Electronic Ordering - All Locations) Patient Can Go To The Location Of Their Choice, 03/29/2016 19:38:18 03/29/2003/29/2016 CBC w/ auto diff HCT 40.4 % (37.0- 47.0) Not Available [facility] (Centralized Electronic Ordering - All Locations) Patient Can Go To The Location Of Their Choice, 03/29/2016 19:38:03/29/2003/29/2016 CBC w/ auto diff MCV 92.0 fL (80.0- 100.0) Not Available [facility] (Centralized Electronic Ordering - All Locations) Patient Can Go To The Location Of Their Choice, 03/29/2016 19:38:03/29/2003/29/2016 CBC w/ auto diff MCH 29.2 pg (27.0- 34.0) Not Available [facility] (Centralized Electronic Ordering - All Locations) Patient Can Go To The Location Of Their Choice, 03/29/2016 19:38:03/29/2003/29/2016 CBC w/ auto diff MCHC 31.7 g/dL (33.0- 37.0) low Not Available [facility] (Centralized Electronic Ordering - All Locations) Patient Can Go To The Location Of Their Choice, 03/29/2016 19:38:03/29/2003/29/2016 CBC w/ auto diff plt 278 K/mm3 (150-4 60) Not Available [facility] (Centralized Electronic Ordering - All Locations) Patient Can Go To The Location Of Their Choice, 03/29/2016 19:38:03/29/2003/29/2016 CBC w/ auto diff RDW-SD 42.5 fL (<47.0 ) Not Available [facility] (Centralized Electronic Ordering - All Locations) Patient Can Go To The Location Of Their Choice, 03/29/2016 19:38:03/29/2003/29/2016 CBC w/ auto diff MPV 9.8 fL (9.4-1 2.4) Not Available [facility] (Centralized Electronic Ordering - All Locations) Patient Can Go To The Location Of Their Choice, 03/29/2016 19:38:03/29/2003/29/2016 CBC w/ auto diff automated NRBC 0.0 #/100 _WBC' s Not Available [facility] (Centralized Electronic Ordering - All Locations) Patient Can Go To The Location Of Their Choice, 03/29/2016 19:38:03/29/2003/29/2016 CBC w/ auto diff abs. NRBC 0.0 K/mm3 Not Available [facility] (Centralized Electronic Ordering - All Locations) Patient Can Go To The Location Of Their Choice, 03/29/2016 19:38:03/29/2003/29/2016 CBC w/ auto diff neut # 2.8 K/mm3 (1.3-7 .0) Not Available [facility] (Centralized Electronic Ordering - All Locations) Patient Can Go To The Location Of Their Choice, 03/29/2016 19:38:03/29/2003/29/2016 CBC w/ auto diff lymph # 2.6 K/mm3 (0.8-3 .1) Not Available [facility] (Centralized Electronic Ordering - All Locations) Patient Can Go To The Location Of Their Choice, 03/29/2016 19:38:03/29/2003/29/2016 CBC w/ auto diff mono# 0.5 K/mm3 (0.4-0 .9) Not Available [facility] (Centralized Electronic Ordering - All Locations) Patient Can Go To The Location Of Their Choice, 03/29/2016 19:38:03/29/2003/29/2016 CBC w/ auto diff eo # 0.0 K/mm3 (0.0-0 .4) Not Available [facility] (Centralized Electronic Ordering - All Locations) Patient Can Go To The Location Of Their Choice, 03/29/2016 19:38:03/29/2003/29/2016 CBC w/ auto diff baso # 0.0 K/mm3 (0.0-0 .1) Not Available [facility] (Centralized Electronic Ordering - All Locations) Patient Can Go To The Location Of Their Choice, 03/29/2016 19:38:03/29/2003/29/2016 CBC w/ auto diff abs. imm gran 0.0 K/mm3 Not Available [facility] ([facility] Ordering - All Locations) Patient Can Go To The Location Of Their Choice, 03/29/2016 19:38:03/29/2003/29/2016 CBC w/ auto diff neut 46.9 % (44-76 ) Not Available [facility] (Centralized Electronic Ordering - All Locations) Patient Can Go To The Location Of Their Choice, 03/29/2016 19:38:03/29/2003/29/2016 CBC w/ auto diff lymph 43.8 % (15-43 ) high Not Available [facility] (Centralized Electronic Ordering - All Locations) Patient Can Go To The Location Of Their Choice, 03/29/2016 19:38:03/29/2003/29/2016 CBC w/ auto diff monocyte 7.7 % (4.5-1 0.5) Not Available [facility] (Centralized Electronic Ordering - All Locations) Patient Can Go To The Location Of Their Choice, 03/29/2016 19:38:03/29/2003/29/2016 CBC w/ auto diff eo 0.7 % (0-6) Not Available [facility] (Centralized Electronic Ordering - All Locations) Patient Can Go To The Location Of Their Choice, 03/29/2016 19:38:03/29/2003/29/2016 CBC w/ auto diff baso 0.7 % (0-2) Not Available [facility] (Centralized Electronic Ordering - All Locations) Patient Can Go To The Location Of Their Choice, 03/29/2016 19:38:03/29/2003/29/2016 CBC w/ auto diff imm gran 0.2 % (0.0-0 .6) Not Available [facility] (Centralized Electronic Ordering - All Locations) Patient Can Go To The Location Of Their Choice, 03/29/2016 19:38:03/29/2003/29/2016 CMP, serum or plasm a glucose 94 mg/dL (70-99 ) Not Available [facility] (Centralized Electronic Ordering - All Locations) Patient Can Go To The Location Of Their Choice, 03/29/2016 21:45:03/29/2003/29/2016 CMP, serum or plasm a BUN 13 mg/dL (6-20) Not Available [facility] (Centralized Electronic Ordering - All Locations) Patient Can Go To The Location Of Their Choice, 03/29/2016 21:45:03/29/2003/29/2016 CMP, serum or plasm a creatinine 0.5 mg/dL (0.5-1 .0) Not Available [facility] (Centralized Electronic Ordering - All Locations) Patient Can Go To The Location Of Their Choice, 03/29/2016 21:45:03/29/2003/29/2016 CMP, serum or plasm a sodium 136 mmol/ L (133-1 45) Not Available [facility] (Centralized Electronic Ordering - All Locations) Patient Can Go To The Location Of Their Choice, 03/29/2016 21:45:03/29/2003/29/2016 CMP, serum or plasm a potassium 4.9 mmol/ L (3.6-5 .2) Not Available [facility] (Centralized Electronic Ordering - All Locations) Patient Can Go To The Location Of Their Choice, 03/29/2016 21:45:03/29/2003/29/2016 CMP, serum or plasm a chloride 101 mmol/ L (98-10 7) Not Available [facility] (Centralized Electronic Ordering - All Locations) Patient Can Go To The Location Of Their Choice, 03/29/2016 21:45:03/29/2003/29/2016 CMP, serum or plasm a bicarbonate 24 mmol/ L (22-29 ) Not Available [facility] (Centralized Electronic Ordering - All Locations) Patient Can Go To The Location Of Their Choice, 03/29/2016 21:45:03/29/2003/29/2016 CMP, serum or plasm a anion gap 11 (4-17) Not Available [facility] (Centralized Electronic Ordering - All Locations) Patient Can Go To The Location Of Their Choice, 03/29/2016 21:45:03/29/2003/29/2016 CMP, serum or plasm a albumin 4.8 gm/dL (3.4-4 .8) Not Available [facility] (Centralized Electronic Ordering - All Locations) Patient Can Go To The Location Of Their Choice, 03/29/2016 21:45:03/29/2003/29/2016 CMP, serum or plasm a calcium 9.4 mg/dL (8.6-1 0.5) Not Available [facility] (Centralized Electronic Ordering - All Locations) Patient Can Go To The Location Of Their Choice, 03/29/2016 21:45:03/29/2003/29/2016 CMP, serum or plasm a bilirubin,to brennen 0.4 mg/dL (0-1.2 ) Not Available [facility] (Centralized Electronic Ordering - All Locations) Patient Can Go To The Location Of Their Choice, 03/29/2016 21:45:16 03/29/2003/29/2016 CMP, serum or plasm a total protein 7.8 gm/dL (6.2-8 .2) Not Available [facility] (Centralized Electronic Ordering - All Locations) Patient Can Go To The Location Of Their Choice, 03/29/2016 21:45:03/29/2003/29/2016 CMP, serum or plasm a Ag ratio 1.6 Not Available [facility] (Centralized Electronic Ordering - All Locations) Patient Can Go To The Location Of Their Choice, 03/29/2016 21:45:03/29/2003/29/2016 CMP, serum or plasm a AST 29 U/L (0-32) Not Available [facility] (Centralized Electronic Ordering - All Locations) Patient Can Go To The Location Of Their Choice, [id number] 03/29/2016 21:45:16 03/29/2003/29/2016 CMP, serum or plasm a alk phos 126 U/L (35-10 4) high Not Available [facility] (Centralized Electronic Ordering - All Locations) Patient Can Go To The Location Of Their Choice, 03/29/2016 21:45:03/29/2003/29/2016 CMP, serum or plasm a ALT 53 U/L (0-31) high Not Available [facility] (Centralized Electronic Ordering - All Locations) Patient Can Go To The Location Of Their Choice, 03/29/2016 21:45:03/29/2003/29/2016 CMP, serum or plasm a est GFR [...] 60 mL/mi n/1.7 3 m2 are repor alesia and eGFR is calcu lated for patie nts > EQ 18 years old. The CKD-E PI creat inine equat ion has not been valid ated in child shaina (<18 years ), pregn ant women , in some racia l or ethni c subgr oups other than Cauca sians and Afric an Ameri cans. Not Available [facility] (Centralized Electronic Ordering - All Locations) Patient Can Go To The Location Of Their Choice, 03/29/2016 21:45:16 03/29/2003/29/2016 CMP, serum or plasm [...] 60 mL/mi n/1.7 3 m2 are repor alesia and eGFR is calcu lated for patie nts > EQ 18 years old. The CKD-E PI creat inine equat ion has not been valid ated in child shaina (<18 years ), pregn ant women , in some racia l or ethni c subgr oups other than Cauca sians and Afric an Ameri cans. Not Available [facility] (Centralized Electronic Ordering - All Locations) Patient Can Go To The Location Of Their Choice, 03/29/2016 21:45:16 03/29/2003/29/2016 TSH, serum or plasm a TSH 2.35 mIU/m L (0.40- 4.00) Not Available [facility] (Centralized Electronic Ordering - All Locations) Patient Can Go To The Location Of Their Choice, 03/29/2016 21:51:19 03/29/2003/30/2016 vitam in D, 25-hy droxy , total , serum 25OH vitamin D 18.1 NG/mL (20-50 ) low SERUM 25OHD : 12 TO 19 NG/ML : AT RISK OF VITAM IN D INADE QUACY . Refer ence: [facility] Data Brief : No.59 September: Vitam in D Statu s: Unite d State s: 2000- 2005 Not Available [facility] (Centralized Electronic Ordering - All Locations) Patient Can Go To The Location Of Their Choice, [id number] 03/30/2016 10:46:50 04/19/2004/19/2016 hepat ic funct ion panel , serum bilirubin,to brennen 0.4 mg/dL (0-1.2 ) Not Available [facility] (Centralized Electronic Ordering - All Locations) Patient Can Go To The Location Of Their Choice, 04/19/2016 20:15:15 04/19/20 16 04/19/2016 hepat ic funct ion panel , serum bilirubin, direct 0.1 mg/dL (0-0.3 ) SPECI MEN SLIGH TLY HEMOL YZED, RESUL TS MAY BE FALSE LY LOW. Not Available [facility] (Centralized Electronic Ordering - All Locations) Patient Can Go To The Location Of Their Choice, 04/19/2016 20:15:15 04/19/20 16 04/19/2016 hepat ic funct ion panel , serum indirect bilirubin 0.3 mg/dL (0.0-0 .7) Not Available [facility] (Centralized Electronic Ordering - All Locations) Patient Can Go To The Location Of Their Choice, 04/19/2016 20:15:15 04/19/20 16 04/19/2016 hepat ic funct ion panel , serum albumin 4.6 gm/dL (3.4-4 .8) Not Available [facility] (Centralized Electronic Ordering - All Locations) Patient Can Go To The Location Of Their Choice, 04/19/2016 20:15:15 04/19/20 16 04/19/2016 hepat ic funct ion panel , serum AST 17 U/L (0-32) Not Available [facility] (Centralized Electronic Ordering - All Locations) Patient Can Go To The Location Of Their Choice, 04/19/2016 20:15:15 04/19/20 16 04/19/2016 hepat ic funct ion panel , serum ALT 16 U/L (0-31) Not Available [facility] (Centralized Electronic Ordering - All Locations) Patient Can Go To The Location Of Their Choice, [id number] 04/19/2016 20:15:15 04/19/20 16 04/19/2016 hepat ic funct ion panel , serum alk phos 95 U/L (35-10 4) Not Available [facility] (Centralized Electronic Ordering - All Locations) Patient Can Go To The Location Of Their Choice, [id number] 04/19/2016 20:15:15 04/19/20 16 04/19/2016 hepat ic funct ion panel , serum total protein 7.2 gm/dL (6.2-8 .2) Not Available [facility] (Centralized Electronic Ordering - All Locations) Patient Can Go To The Location Of Their Choice, [id number] 04/19/2016 20:15:15 04/19/20 16 04/20/2016 HBsAg (hepa titis B surfa ce Ag), serum hep. B surf. Ag NEGAT DILIP REFER ENCE RANGE : NEGAT DILIP Not Available [facility] (Centralized Electronic Ordering - All Locations) Patient Can Go To The Location Of Their Choice, [id number] 04/20/2016 10:01:14 04/19/20 16 04/20/2016 hepat itis C virus Ab, serum anti-hepatit is C NEGAT DLIIP REFER ENCE RANGE : NEGAT DILIP Not Available [facility] (Centralized Electronic Ordering - All Locations) Patient Can Go To The Location Of Their Choice, [id number] 04/20/2016 10:25:43 04/30/20 14 elect rocar diogr [...] Date/T guido: 8:00 am Transc ribed By: CSB Transc ribed Date/T guido: 8:00 am Patien t Class: Outpat ient [email or web address] [facility] (Centralized Electronic Ordering - All Locations) Patient Can Go To The Location Of Their Choice, [id number] 03/29/2016 15:11:38 07/01/20 15 05/27/2015 imagi ng/di agnos tic resul t No observ ation record ed. [email or web address] Not Available 07/15 06:07:57 Result Notes None recorded. Problems Name Problem SNOMED Code Status Onset Date Resolution Date Notes Provider Name and Address Organization Details Recorded Time Allergic rhinitis [id number] Completed 201202/17/2014 RECORDED 09/03/19 13 2:19PM BY DIANE GHOSH MA, GABE ON/ADDEN DUM Not Available [facility] 4 05:24:01 Patient status finding [id number] Completed 201202/17/2014 RECORDED 09/03/19 13 2:19PM BY DIANE GHOSH MA, ANNOTATI ON/ADDEN DUM Not Available [facility] 4 05:24:01 Bronchit is [id number] Completed 201302/17/2014 RECORDED 11/16/19 14 4:04PM BY EDD KINGSLEY MA, GABE ON/ADDEN DUM Not Available [facility] 4 05:24:01 Chest pain [id number] Completed 201202/17/2014 IMPRESSI ON: PPI AFFORDIN G RELIEF SO LIKELY GERD RELATED. WILL REASSESS WITH CONSITEN T USE AND INVETIGA TE FURTHER IF PERSISTA NT/WORSE . VIT D DEFICIEN CY ALSO POSSIBLE .; RECORDED 09/03/19 13 2:19PM BY DIANE GHOSH MA, ANNOTATI ON/ADDEN DUM Not Available [facility] 4 05:24:01 Cough 20708360 Completed 201302/17/2014 RECORDED 11/16/19 14 4:04PM BY EDD KINGSLEY MA, ANNOTATI ON/ADDEN DUM Not Available [facility] 4 05:24:01 Dysfunct ion of eustachi an tube 44111600 Completed 201202/17/2014 IMPRESSI ON: LIKELY ALLERGY RELATED. SALINE NASAL IRRIGATI ON ADVISED WELL. CALL INB/WORS E.; RECORDED 04/30/20 13 1:20PM BY TYSON HOWELL MA, ANNOTATI ON/ADDEN DUM Not Available [facility] 4 05:24:02 Adult health examinat ion Completed 201202/17/2014 IMPRESSI ON: IMMUNIZA TION STATUS UTD (WILL VERIFY WITH PRIOR PCP RECORDS WHEN AVAILABL E) AND SCREEN BASED ON RISK FACTORS. REGULAR DENTAL CARE AND SEATBELT USE ADVISED. DISTRACT ED DRIVING DONNA Muir ROUTINE LEAF SORTER CARE UTD, WILL REQUEST RECORDS FOR CONFIRMA TION; RECORDED 09/03/19 13 2:19PM BY DIANE GHOSH MA, ANNOTATI ON/ADDEN DUM Not Available [facility] 4 05:24:02 Screenin g for malignan t neoplasm of breast Completed 201202/17/2014 RECORDED 12/20/19 13 8:56AM BY DIANE GHOSH MA, ANNOTATI ON/ADDEN DUM Not Available [facility] 4 05:24:02 Shoulder joint pain 562988665 Active Brian Griffiths, [facility] [address] [facility] [address], [place], [address] , [facility] 4 13:32:27 Palpitat ions 19197772 Completed 201202/17/2014 IMPRESSI ON: LIEKLY STRESS RELATED. NOT WORSE WITH EXERTION ; RECORDED 07/02/20 13 10:03AM BY EDD KINGSLEY MA, ANNOTATI ON/ADDEN DUM Not Available [facility] 4 05:24:02 Immuniza tion refused Completed 201202/17/2014 RECORDED 09/03/19 13 2:19PM BY DIANE GHOSH MA, ANNOTATI ON/ADDEN DUM Not Available [facility] 4 05:24:02 Acute upper respirat ory infectio n 78406399 Completed 201302/17/2014 RECORDED 01/02/20 14 10:18AM BY EDD KINGSLEY MA, ANNOTATI ON/ADDEN DUM Not Available [facility] 4 05:24:02 Vitamin D deficien cy 07362491 Completed 201202/17/2014 IMPRESSI ON: WILL REASSESS WITH HIGH DIOSE SUPPLEME NTATION AND ADJUST DAILY DOSE TO FIORELLA AND MAINTAIN A LEVEL 20-50.; RECORDED 04/30/20 13 1:20PM BY TYSON HOWELL MA, ANNOTATI ON/ADDEN DUM Not Available [facility] 4 05:24:02 Palpitat ions 71890003 Active Schuyler akbar, [facility] 4 15:59:36 Shoulder pain 58868969 Active Kvng Wang MD [address] [address], [place], [address] , [facility] 5 13:15:10 Contact dermatit is 26032723 Active Kvng Wang MD [address] [address], [place], [address] , [facility] 5 08:20:27 Neck pain 79599242 Active Kvng Wang MD [address] [address], [place], [address] , [facility] 5 08:20:27 Adhesive capsulit is of shoulder 162062328 Active Kvng Wang MD [address] [address], [place], [address] , [facility] 5 19:43:17 Allergic rhinitis 35324164 Completed 201201/21/2014 RECORDED 09/03/19 13 2:19PM BY DIANE GHOSH MA, ANNOTATI ON/ADDEN DUM Not Available [facility] 4 14:05:00 Patient status finding [id number] Completed 201201/21/2014 RECORDED 09/03/19 13 2:19PM BY DIANE GHOSH MA, ANNOTATI ON/ADDEN DUM Not Available [facility] 4 14:05:00 Bronchit is 23403996 Completed 201301/21/2014 RECORDED 11/16/19 14 4:04PM BY EDD KINGSLEY MA, ANNOTATI ON/ADDEN DUM Not Available [facility] 4 14:05:00 Chest pain 95473713 Completed 201201/21/2014 IMPRESSI ON: PPI AFFORDIN G RELIEF SO LIKELY GERD RELATED. WILL REASSESS WITH CONSITEN T USE AND INVETIGA TE FURTHER IF PERSISTA NT/WORSE . VIT D DEFICIEN CY ALSO POSSIBLE .; RECORDED 09/03/19 13 2:19PM BY DIANE GHOSH MA, ANNOTATI ON/ADDEN DUM Not Available [facility] 4 14:05:01 Cough 44613371 Completed 201301/21/2014 RECORDED 11/16/19 14 4:04PM BY EDD KINGSLEY MA, ANNOTATI ON/ADDEN DUM Not Available [facility] 4 14:05:01 Allergic rhinitis 29599752 Active Reyna andino MA null, [facility] 5 11:05:40 Dysfunct ion of eustachi an tube 36789499 Completed 201201/21/2014 IMPRESSI ON: LIKELY ALLERGY RELATED. SALINE NASAL IRRIGATI ON ADVISED WELL. CALL INB/WORS E.; RECORDED 04/30/20 13 1:20PM BY TYSON HOWELL MA ANNOTATI ON/ADDEN DUM Not Available [facility] 4 14:05:01 Adult health examinat ion Completed 201201/21/2014 IMPRESSI ON: IMMUNIZA TION STATUS UTD (WILL VERIFY WITH PRIOR PCP RECORDS WHEN AVAILABL E) AND SCREEN BASED ON RISK FACTORS. REGULAR DENTAL CARE AND SEATBELT USE ADVISED. DISTRACT ED DRIVING DONNA Richard. ROUTINE LEAF SORTER CARE UTD, WILL REQUEST RECORDS FOR CONFIRMA TION; RECORDED 09/03/19 13 2:19PM BY DIANE GHOSH MA, GABE ON/ADDEN DUM Not Available [facility] 4 14:05:01 Gastroes ophageal reflux disease 775781682 Active Brian Griffiths, [facility] [address] [facility] [address] [facility], [place], [address] , [facility] 4 13:32:27 Headache 10733126 Tobias Griffiths [facility] [address] [address], [place], [address] , [facility] 4 13:32:27 Menopaus al symptom 69399287 Active Brian Griffiths [facility] [address] [facility], [place], [address] , [facility] 4 13:32:27 Pure hypercho lesterol emia [id number] Tobias Griffiths [facility] [address] [facility] [address] [facility], [place], [address] , [facility] 4 13:32:27 Screenin g for malignan t neoplasm of breast Completed 201201/21/2014 RECORDED 12/20/19 13 8:56AM BY DIANE GHOSH MA, GABE ON/ADDEN DUM Not Available [facility] 4 14:05:01 Migraine 50268306 Active Schuyler akbar, [facility] 4 15:59:36 Patient status finding [id number] Tobias Griffiths [facility] [address] [facility], [place], [address] , [facility] 4 13:32:27 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 [address] [facility] [address], [place], [address] , [facility] 4 13:32:27 Palpitat ions 52281729 Completed 201201/21/2014 IMPRESSI ON: LIEKLY STRESS RELATED. NOT WORSE WITH EXERTION ; RECORDED 07/02/20 13 10:03AM BY EDD KINGSLEY MA, ANNOTATI ON/ADDEN DUM Not Available [facility] 4 14:05:02 Immuniza tion refused Completed 201201/21/2014 RECORDED 09/03/19 13 2:19PM BY DIANE GHOSH MA, ANNOTATI ON/ADDEN DUM Not Available [facility] 4 14:05:02 Acute upper respirat ory infectio n 40879850 Active Brian Griffiths [facility] [address] [facility] [address], [place], [address] , [facility] 4 13:32:27 Vitamin D deficien cy 24169668 Completed 201201/21/2014 IMPRESSI ON: WILL REASSESS WITH HIGH DIOSE SUPPLEME NTATION AND ADJUST DAILY DOSE TO FIORELLA AND MAINTAIN A LEVEL 20-50.; RECORDED 04/30/20 13 1:20PM BY TYSON HOWELL MA, ANNOTATI ON/ADDEN DUM Not Available [facility] 4 14:05:02 Problem Notes None recorded. Procedures Surgical History None recorded. Imaging Results Imaging Date Name Status LastModified by Organization Details LastModified Time 04/30/2014 electrocardiogram completed BARCODE Informa tion not available 04/30/2014 09:57:49 05/01/2013 CT, head, w/o contrast completed [email or web address] [facility] (Centralized Electronic Ordering - All Locations) Patient Can Go To The Location Of Their Choice, [id number] 03/29/2016 15:11:38 05/27/2015 imaging/diagnostic result completed [email or web address] Information not available 07/15/2015 06:07:57 Procedure Notes [...] Updated DateTime 4 99 % 99 % 32943.7 39261 g 95 /min 19.8 kg/m2 149.86 cm 98.1 [degF] 106 mm[Hg] 75 mm[Hg] Netta Martinez MA [facility] 4 13:00:06 Date Recorded Body height Oxygen saturation Oxygen saturation in Arterial blood by Pulse oximetry Body weight Heart rate Body mass index (BMI) Body temperature Systolic blood pressure Diastolic blood pressure Provider Name and Address Organization Details Last Updated DateTime 5 149.86 cm 97 % 97 % 88226.2 97115 g 83 /min 19.9 kg/m2 97.8 [degF] 106 mm[Hg] 64 mm[Hg] Osmin Shipman [facility] 5 12:58:22 Date Recorded Body height Oxygen saturation Oxygen saturation in Arterial blood by Pulse oximetry Heart rate Body temperature Body weight Body mass index (BMI) Systolic blood pressure Diastolic blood pressure Provider Name and Address Organization Details Last Updated DateTime 5 149.86 cm 97 % 97 % 80 /min 97.8 [degF] 12710.6 4463 g 20 kg/m2 102 mm[Hg] 58 mm[Hg] Reyna moreau MA [facility] 5 10:56:53 Date Recorded Body height Oxygen saturation Oxygen saturation in Arterial blood by Pulse oximetry Heart rate Body weight Body mass index (BMI) Body temperature Systolic blood pressure Diastolic blood pressure Provider Name and Address Organization Details Last Updated DateTime 6 149.86 cm 100 % 100 % 86 /min 99762.7 4 g 19.6 kg/m2 98.3 [degF] 92 mm[Hg] 61 mm[Hg] Netta Martinez MA [facility] 6 15:16:06 Date Recorded Body height Body weight Body mass index (BMI) Body temperature Oxygen saturation Oxygen saturation in Arterial blood by Pulse oximetry Heart rate Systolic blood pressure Diastolic blood pressure Provider Name and Address Organization Details Last Updated DateTime 6 149.86 cm 34694.7 4 g 19.6 kg/m2 98.4 [degF] 99 % 99 % 95 /min 109 mm[Hg] 70 mm[Hg] Hannah Bermudez [facility] 6 10:43:33 Social History Question Answer Notes LastModified by Organizat ion Details LastModified Time Tobacco Smoking Status Never Smoker Not Available [employer] 05/12/2020 03:36:35 How Much Tobacco Do You Chew? None [id number] Information not available 05/12/2020 What Type Of Diet Are You Following? REGULAR [id number] Information not available 05/12/2020 Which Illicit Or Recreational Drugs Have You Used? None [id number] Information not available 05/12/2020 Live Alone Or With Others? With Others Information not available 05/07/2015 Smoke Alarm In Home Yes Information not available 05/07/2015 At What Age Did You Start Smoking Tobacco? 1 [id number] Information not available 05/12/2020 Are You Passively Exposed To Smoke? No Information no t available 05/07/2015 How Much Tobacco Do You Smoke? No [id number] Information not available 05/12/2020 How Many Years Have You Smoked Tobacco? 0 [id number] Information not available 05/12/2020 Sex: Unknown Functional Status Question Answer Note LastModified by Organization D etails LastModified Time Are you able to care for yourself? Yes [id number] Information n ot available 05/12/2020 Mental Status None recorded. Family History Nothing Reported. Medical History Condition Response Coronary Artery Disease N Other N Gout N Kidney Stones N Blood Diseases N Hyperthyroidism N Breast Cancer N mrsa exposure N Hypothyroidism N Lung Disease N COPD N Depression N Developmental or Behavioral Disorders N Defects or Inherited Disease N Breast Problem N Anesthesia Complications N Headaches/Migraines Y Anxiety Disorder N Varicose Veins N Muscle, Joint, or Bone Problems N Obesity N Vision or Eye Problems N Arthritis N Head Injury/Concussion N Infertility N Polyps N Mental Disorder N Congenital Anomalies N [...] SNOMED-CT Code Diagnosis ICD10 Code Diagnosis Note [id number] autoVIANNEYomserenity moreno [address] [facility] [address] [place] [address] 08/07/2012 00:00:00 [id number] autoEComm zace [address] [facility] [address] [place] [address] 12/19/2012 00:00:00 [id number] autoEComAxeda erce [address] [facility] [address] [place] [address] 04/30/2013 00:00:00 [id number] autoEComserenity franke [address] [facility] [address] [place] [address] 07/02/2013 00:00:00 [id number] [employer] Grou[facility]anne [facility] [address] [place] [address] 11/15/2013 00:00:00 [id number] autoEComm erce [address] [facility] [address] [place] [address] 01/01/2014 00:00:00 [id number] Main Office [address] [facility] [address] [place] [address] 04/29/2014 12:43:14 04/29/2014 13:45:14 Palpitations 42651271 Patient feels hot sensation and gets palpitatio ns then migraine headache. She would like to haev bloodwork done to r/o possible causes of hot flashes. Ekg in office negative Migraine 71617805 Hot sensation may be a preceding sx to her migraines will start propranolo l daily and sumatripta n as needed. [id number] Kvng Wang MD Main Office [address] [place] [address] [place] [address] 09/04/2014 12:40:04 09/04/2014 13:25:38 Shoulder pain 53049690 Bursitis vs impingemen t syndrome. Recommend anti-infla mmatory, ice, rest, PT. She is unable to start PT at this time due to co-pay, will try home exercises. If sx persist please return. Contact dermatitis 95154349 To face, was seeing derm and was prescribed a steroid cream. Neck pain 05423719 Some neck muscle tension on left, ice or heat to area, stretches. [id number] Kvng Wang MD Main Office [address] [place] [address] [place] [address] 05/07/2015 10:29:22 05/07/2015 12:00:23 Shoulder pain 24319732 M25.512 Bursitis vs impingemen t syndrome. Recommend anti-infla mmatory, ice, rest, PT. She is unable to start PT at this time due to co-pay, will try home exercises. Recommend she see an lean [employer] specialist for further work-up and management , possible injection therapy. We will arrange this appointmen t for her. [id number] Sebas Ng MD Main Office [address] [place] [address] [place] [address] 03/29/2016 14:55:01 03/29/2016 15:51:25 Generalized anxiety disorder 30560393 F41.1 Start medication s as directed fo anxiety , depression adn panic d/o. Pt. is advised to call and scheduled shaq for therapy . F/u 4 weeks. Panic disorder 236796212 F41.0 Fatigue 95444751 R53.83 Major depr essive disorder 844761654 F32.9 [id number] Kvng Wang MD Main Office [address] [place] [address] 05/12/2016 10:33:51 05/12/2016 12:27:15 Upper respiratory infection 82006807 J06.9 Sx x 1 week, worsening, symptomati [...] Member ID Guarantor Name 04/29/2014 1 [facility] [id number] Aaron Sarabia [id number] 2 Aaron Sarabia 09/04/2014 1 [facility] [id number] Aaron Sarabia [id number] 2 Aaron Sarabia 05/07/2015 1 [facility] [id number] Aaron Sarabia [id number] 2 Aaron Sarabia 03/29/2016 1 [facility] [id number] Aaron Sarabia [id number] 2 Aaron Sarabia 05/12/2016 1 [facility] [id number] Aaron Sarabia [id number] 2 Aaron Sarabia Notes Date Note Type [...] NO recent labs. Sebas Ng MD [address], [address], [facility] [place] 03/29/2016 19:39:40 05/12/2016 text/html Sinusitis/Allerg yR [...] with some relief. Kvng Wang MD [address], [address], [facility] [place] 05/12/2016 12:17:20 OBGyn Episode No OBEpisode recorded.
== END 2024-09-06 10:44 | disposition home or self-care (01) ==
PROVIDERS: PCP Nurse Practitioner Family
DX: R20.0 Anesthesia of skin (principal); R20.2 Paresthesia of skin
CPT/HCPCS: 99203

== ENCOUNTER → 2024-09-06 09:51 | Outpatient (BNVA) | payer OTHER, SELFPAY | PROVIDERS: PCP Nurse Practitioner Family | DX: R20.0 Anesthesia of skin (principal); R20.2 Paresthesia of skin | CPT/HCPCS: 99202 ==

== ENCOUNTER 2025-04-23 09:29 | Outpatient (REF) | payer OTHER, SELFPAY ==
--- OUTSIDE RECORDS SUMMARY | 2025-04-22 13:00 | XMS_ITS | Encounter Summary ---
Author Organization [employer] [facility] Address [address] [place] [address] [facility] [place] [address] Care Team Providers Care Osteologist Name Role Phone Afsaneh Fraire CNP Primary Care Provider [phone] Reason for Referral * Consultation (Routine) - Authorized Specialty Diagnoses / Procedures Referred By Willow mccollum Referred To Contact Obstetrics and Gynecology Diagnoses Encounter for physical examination Afsaneh Fraire CNP [address] [place] [address] Phone: tel: fax: Drew Thao MD [address] [facility] [address] [place] [address] Phone: tel: fax: Referral ID Status Reason Start Date Expiration Date Visits Requested Visits Authorized [id number] Authorized Specialty Services Required 04/22/2026 1 1 * Imaging (Routine) - Authorized Specialty Diagnoses / Procedures Referred By Willow mccollum Referred To Contact Radiology Diagnoses Encounter for screening mammogram for breast cancer Procedures BI Mammogram Screening Tomosynthesis Bilateral Afsaneh Fraire CNP [address] [place] [address] Phone: tel: fax: [facility] Referral ID Status Reason Start Date Expiration Date V isits Requested Visits Authorized [id number] Authorized 04/22/2025 04/22/2026 1 1 Encounter Details Date Type Department Care Team (Late st Contact Info) Description 04/22/2025 1:00 PM EDT Office Visit [facility] [address] [place] [address] Juno Andreten, OSCAR [address] [place] [address] Encounter for physical examination (Primary Dx); Blood pressure elevated without history of HTN; Encounter for screening mammogram for breast cancer; Screening for colon cancer; Chronic allergic otitis externa Social History Tobacco Use Types Packs/Day Years Used Date Smoking Tobacco: Never Smokeless Tobacco: Never Tobacco Cessation:Counseling Given: Not Answered Alcohol Use Standard Drinks/Week Comments Never 0 (1 standard drink = 0.6 oz pur e alcohol) Depression Answer Date Recorded Patient Health Questionnaire-9 Score 0 04/22/2025 Patient Health Questionnaire-9 Score 0 04/22/2025 Last PHQ-9: Questionnaire Data Not on file 1 Housing Stability Answer Date Recorded What is your housing situation today? I have colleen hugo 04/15/[address] you li ve. Do you have problems with any of the following? None of the above 04/15/2025 Food Insecurity Answer Date Recorded Within the past 12 months, y ou worried that your food would run out before you got money to buy more: Never True 04/15/2025 Within the past 12 months,th e food you bought just didn't last and you didn't have enough money to get more: Never True 01/2025 Transportation Answer Date Recorded In the past 12 months, has l ack of transportation kept you from medical appts, meetings, work or from getting things needed for daily living? No 04/15/2025 Utilities Answer Date Recorded In the past 12 months, has t he electric, gas, oil or water company threatened to shut off services in your home? No 04/15/2025 Depression Answer Date Recorded Patient Health Questionnaire-2 Score 0 04/22/2025 Internet Access Answer Date Recorded Internet Access Q1 Yes 04/15/2025 Internet Access Q2 Not on file 04/15/2025 Comments No Sex and Gender Information Value Date Recorded Sex Assigned at Female 05/09/2022 10:23 AM EDT Legal Sex Female 10:23 AM EDT Gender Identity Female 05/09/2022 10:23 AM EDT Sexual Orientation Straight 05/09/2022 10 :23 AM EDT documented as of this encounter Last Filed Vital Signs Vital Sign Reading Time Taken Comments Blood Pressure 122/72 04/22/2025 1:12 PM EDT Pulse 86 04/22/2025 1:12 PM EDT Temperature 36.4 C (97.6 F) 04/22/2025 1:12 PM EDT Respiratory Rate 12 04/22/2025 1:12 PM EDT Oxygen Saturation 98% 04/22/2025 1:12 PM EDT Inhaled Oxygen Concentration - - Weight 45.8 kg (101 lb) 04/22/2025 1:12 PM EDT Height 149.9 cm (4' 11 ) 04/22/2025 1:12 PM EDT Body Mass Index 20.4 04/22/2025 1:12 PM EDT documented in this encounter Functional Status * Over the past 2 weeks, how often have you been bothered by any of the following problems? Question Answer Date of Assessment Author Patient Health Questionnaire -2 Score 0 04/22/2025 1:16 PM EDT Douglas-ColonTres [place] * Little interest or pleasure in doing things Answer Date of Assessment Author Not at all 04/22/2025 1:16 PM EDT Douglas-Co Susy millan, [place] * Feeling down, depressed, or hopeless Answer Date of Assessment Author Not at all 04/22/2025 1:16 PM EDT Douglas-Co Susy millan [place] * Trouble falling or staying asleep, or sleeping too much Answer Date of Assessment Author Not at all 04/22/2025 1:16 PM EDT Douglas-Co Susy millan [place] * Feeling tired or having little energy Answer Date of Assessment Author Not at all 04/22/2025 1:16 PM EDT Douglas-Co Susy millan [place] * Poor appetite or overeating Answer Date of Assessment Author Not at all 04/22/2025 1:16 PM EDT Douglas-Co Susy millan, [place] * Feeling bad about yourself - or that you are a failure or have let yourself or your family down Answer Date of Assessment Author Not at all 04/22/2025 1:16 PM EDT Susy Marie [place] * Trouble concentrating on things, such as reading the newspaper or watching television Answer Date of Assessment Author Not at all 04/22/2025 1:16 PM EDT Susy Marie [place] * Moving or speaking so slowly that other people could have noticed? Or the opposite - being so fidgety or restless that you have been moving around a lot more than usual. Answer Date of Assessment Author Not at all 04/22/2025 1:16 PM EDT Susy Marie MA * Thoughts that you would be better off or hurting yourself in some way Answer Date of Assessment Author Not at all 04/22/2025 1:16 PM EDT Susy Marie MA * Patient Health Questionnaire-9 Score Answer Date of Assessment Author 0 04/22/2025 1:16 PM EDT Susy Marie MA documented as of this encounter Progress Notes * Afsaneh Fraire CNP - 04/22/2025 1:00 PM EDT Subjective: Anjana Martinez is a 54 y.o. female with PMH of hypertension and anxiety who presents to the office for a new patient visit. Previous PCP unknown. Interim history: Pt reports she historically was being seen at [address] She reports she was havinga workup completed for her pelvic pain and vaginal dryness however she fell out of care due to her mother getting sick and having to emergently go to [place]. She is requesting to be referred to another OBGYN at another location. She reports her last pap was 3 years ago, denies any history of abnormal paps. Reports last mammo 1-2 years ago, normal. Pt had complete eye exam at [facility] last month Denies ever having colonoscopy, she reports she is not interested however she is open to cologard. Current concerns: Reporting high BP readings at home, shows me home readings in 140s-150s/80-90s in the past week. She also endorses BOLAND and dizziness. She reports that she had a history of vertigo when she was a child, she reports it has been stable over the years. She denies any chest pain, sob, syncope. Reporting ongoing bilateral ear itchiness with some intermittent discharge from both ears. Denies recent URI, denies hearing loss, denies sore throat, denies cough or congestion. She does have history of environmental allergies, has daily zyrtec and prn flonase for symptomatic relief. Problem List[1] Surgical History[2] Family History[3] Social History Living situation: lives with Diet/exercise: she eats well, active lifestyle Substance use: denies all substance use Sexual activity: monogamous AMAB partner Contraception: N/A Mental health: Patient Health Questionnaire-9 Score: 0 (04/22/2025 1:16 PM) Patient Health Questionnaire-2 Score: 0 (04/22/2025 1:16 PM) Thoughts that you would be better off or hurting yourself in some way: Not at all (04/22/2025 1:16 PM) No data recorded No LMP recorded. Patient is postmenopausal. Last period 2 years ago, she does endorse some hot flashes that come and go. Allergies[4] Review of Systems Constitutional: Negative for chills, fatigue and fever. HENT: Positive for ear discharge. Negative for ear pain, hearing loss and tinnitus. +ear itching Eyes: Negative. Respiratory: Negative for cough, choking, chest tightness, shortness of breath and wheezing. Cardiovascular: Negative for chest pain and palpitations. Gastrointestinal: Negative. Endocrine: Negative. Genitourinary: Negative. Musculoskeletal: Negative. Neurological: Positive for dizziness and headaches. Negative for seizures, syncope, speech difficulty and weakness. Psychiatric/Behavioral: The patient is nervous/anxious. Vitals: 04/22/25 1312 BP: 122/72 BP Location: Left arm Patient Position: Sitting BP Cuff Size: Adult Pulse: 86 Resp: 12 Temp: 97.6 ??F (36.4 ??C) TempSrc: Oral SpO2: 98% Weight: 101 lb (45.8 kg) Height: 4' 11 (1.499 m) Physical Exam Constitutional: Appearance: Normal appearance. She is normal weight. HENT: Head: Normocephalic and atraumatic. Right Ear: Tympanic membrane normal. Left Ear: Tympanic membrane normal. Ears: Comments: +mild ear canal erythema bilaterally Eyes: Extraocular Movements: Extraocular movements intact. Pupils: Pupils are equal, round, and reactive to light. Cardiovascular: Rate and Rhythm: Normal rate and regular rhythm. Pulses: Normal pulses. Heart sounds: Normal heart sounds. No murmur heard. No friction rub. No gallop. Pulmonary: Effort: Pulmonary effort is normal. No respiratory distress. Breath sounds: Normal breath sounds. No wheezing or rales. Musculoskeletal: Cervical back: Neck supple. No tenderness. Lymphadenopathy: Cervical: No cervical adenopathy. Neurological: General: No focal deficit present. Mental Status: She is alert and oriented to person, place, and time. Psychiatric: Mood and Affect: Mood normal. Behavior: Behavior normal. Thought Content: Thought content normal. Judgment: Judgment normal. Assessment & Plan Encounter for physical examination 1. Anticipatory guidance discussed. Specific topics reviewed: drugs, ETOH, and tobacco, importance of regular dental care, importance of regular exercise, importance of varied diet, minimize junk food, and sex; STD and prevention as appropriate. 2. Age appropriate screenings discussed. 3. Declines all due vaccinations, she will think about zoster. Routine Screening and Health Maintenance Optometry: Yes Dentist: Yes ASCVD risk: 54 y.o. female Low CVD risk, no CVD history or risk factors Lab Review: orders written for new lab studies as appropriate; see orders Routine Cancer Screening Breast CA: due Cervical CA: due, 3 years ago, denies any abl paps Colon CA: due Lung CA: Orders: Lipid Panel, Standard; Future CBC auto differential; Future Basic Metabolic Panel; Future Hepatic Function Panel; Future HIV-1/2 Antigen and Antibodies, Fourth Generation, with Reflexes; Future Hepatitis C Antibody with Reflex to HCV, RNA, Quantitative, Real-Time PCR; Future Referral to Obstetrics / Gynecology; Future TSH W/Reflex to FT4; Future Blood pressure elevated without history of HTN Pt in office reading at goal of <140/90 However pt home readings are elevated as proven by her log she brought in today and are associated with BOLAND and dizziness. I prescribed her a BP monitor today to check her BP 1-2x daily and advised her to keep track in a log. We will f/u in 2-4 weeks and she will bring this log to help determine need for pharm mgmt Encounter for screening mammogram for breast cancer Referred for mammo Orders: BI Mammogram Screening Tomosynthesis Bilateral; Future Screening for colon cancer No personal or family history of colon cancer, pt agreed to cologuard Orders: Cologuard?? colon cancer screening Chronic allergic otitis externa This is a chronic issue likely 2/2 environmental triggers Advised continued use of anti allergic meds Prescribed steroid ear drops to help with sx Orders: acetic acid-hydrocortisone (Vosol-HC) otic solution; Administer 3 drops into each ear 4 times dailyfor 10 days. Current Medications[5] Immunization History Administered Date(s) Administered Influenza Injectable Quadrivalant Preservative Free IIV4 MDCK 05/19/2022 Pfizer Covid-19 Vaccine 12+ 10/15/2020, 11/07/2020, 06/28/2021 Tdap 11/23/2018 No follow-ups on file. [1] There is no problem list on file for this patient. [2] Past Surgical History: Procedure Laterality Date SECTION, LOW TRANSVERSE 05/02/1995-12/15/1998 [3] Family History Problem Relation Name Age of Onset Cancer Mother Marcelle 70 - 79 [4] No Known Allergies [5] Current Outpatient Medications Medication Sig Dispense Refill cetirizine (ZyrTEC) 10 MG tablet Take 1 tablet by mouth at bed time. fluticasone (Flonase Allergy Relief) 50 MCG/ACT nasal spray Administer 1-2 sprays into affected nostril(s) at bed time. hydrOXYzine HCl (Atarax) 50 MG tablet Take 1 tablet by mouth at bed time. No current facility-administered medications for this visit. documented in this encounter Plan of Treatment Upcoming Encounters Date Type Department Care Team (Late st Contact Info) Description 05/13/2025 11:15 AM EST Office Visit [facility] [address] [place] [address] Afsaneh Fraire CNP [address] [place] [address] Scheduled Orders Name Type Priority Associated Diagnoses Orde r Schedule Lipid Panel, Standard Lab Routine Encounter for physical examination Expected: 04/22/2025 (Approximate), Expires: 04/22/2026 CBC auto differential Lab Routine Encounter for physical examination Expected: 04/22/2025 (Approximate), Expires: 04/22/2026 Basic Metabolic Panel Lab Routine Encounter for physical examination Expected: 04/22/2025 (Approximate), Expires: 04/22/2026 Hepatic Function Panel Lab Routine Encounter for physical examination Expected: 04/22/2025 (Approximate), Expires: 04/22/2026 HIV-1/2 Antigen and Antibodies, Fourth Generation, with Reflexes Lab Routine Encounter for physical examination Expected: 04/22/2025 (Approximate), Expires: 04/22/2026 Hepatitis C Antibody with Reflex to HCV, RNA, Quantitative, Real-Time PCR Lab Routine Encounter for physical examination Expected: 04/22/2025, Expires: 04/22/2026 BI Mammogram Screening Tomosynthesis Bilateral Imaging Routine Encounter for screening mammogram for breast cancer Expected: 04/22/2025, Expires: 06/22/2026 Cologuard colon cancer screening Lab Routine Screening for colon cancer Ordered: 04/22/2025 TSH W/Reflex to FT4 Lab Routine Encounter for physical examination Expected: 04/22/2025 (Approximate), Expires: 04/22/2026 Scheduled Referrals Name Type Priority Associated Diagnoses Orde r Schedule Referral to Obstetrics / Gynecology Outpatient Referral Routine Encounter for physical examination Expected: 04/22/2025 (Approximate), Expires: 04/22/2026 documented as of this encounter Visit Diagnoses Diagnosis Encounter for physical examination- Primary Blood pressure elevated without history of HTN Encounter for screening mammogram for breast cancer Screening for colon cancer Special screening for malignant neoplasms, colon Chronic allergic otitis externa documented in this encounter Additional Health Concerns Assessment Noted Time PHQ-9 Depression Total Score: 0 04/22/20 1:16 PM EDT documented as of this encounter Care Teams Osteologist Relationship Specialty Start Date End Date Afsaneh Fraire CNP [address] [place] [id number] PCP - General Family Medicine 04/22/25 documented as of this encounter
--- OUTSIDE RECORDS SUMMARY | 2025-04-23 10:53 | XMS_ITS | Data Portability ---
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 Surgeries None record ed. Imaging electr ocardi ogram 2013 014 [email or web address] In-Office Order, Internal Use Only DO Not Attach Compendium DO Not Attach Compendium, Do Not Delete/merge, [id number] 4 15:59:36 Medication Orders Zithro max Z-Stef 250 mg tablet 2015 016 [id number] [facility], [address] [place], [address], 6 04:32:13 benzon atate 200 mg capsul e 2015 016 [id number] [facility], [address] [place], [address], 6 04:32:22 clonaz epam 0.5 mg tablet 2015 016 [id number] [facility], [address] [place], [address], 6 04:31:50 sertra line 50 mg tablet 2015 016 [id number] [facility], [address] [place], [address], 6 04:31:50 Robaxi n-750 750 mg tablet [address] [facility], [address] [place], [address], 5 10:52:46 desoni de 0.05 % topica l ointme nt [address] [facility], [address] [facility] [place], [address], 5 10:58:14 naprox en 500 mg tablet 2014 015 [facility], [address] [place], [address], 5 08:20:27 propra nolol ER 60 mg capsul e,24 hr,ext ended releas e [address]/[facility]acy [facility], [address] [place], [address], 6 15:18:01 sumatr iptan 50 mg tablet [address]/[facility], [address] [place], [address], 6 15:17:56 Patient TargetsNo targets recorded. Patient Instructions Encounter Date Encounter Id Patient Instructions Last Modified By Organization Details Last Modified Time 04/29/2014 [id number] To call or retur n for worsening [...] with the assessment and plan of care. sonulessjamaica Not available 04/29/2014 15:59:36 09/04/2014 [id number] bursitis de hombro: ejercicios - [shoulder bursitis: [...] with the assessment and plan of care. [email or web address] Not available 09/05/2014 08:20:28 05/07/2015 [id number] To call or retur n for worsening [...] and plan of care. [email or web address] Not available 05/07/2015 13:15:10 03/29/2016 [id number] anxiety disorder : care instructions 17 Not available 06/25/2016 04:31:53 I have reviewed the note and agree with the assessment and plan of care. [email or web address] Not available 03/29/2016 19:39:36 05/12/2016 [id number] infecci n de las v respiratorias altas (resfriado): instrucciones de cuidado - [upper respiratory infection (cold): care instructions] 17 Not available 06/25/2016 04:32:18 Call or return for worsening sx. [email or web address] Not available 05/12/2016 11:37:50 Chart reviewed, agree with above assessment and plan. lázaro Not available 05/12/2016 12:16:51 Reason for Referral Orthopedic Referral for Pain of shoulder region left shoulder pain x > 6 months, [...] DO Not Attach Compendium, Do Not Delete/merge, [id number] 04/29/2014 13:29:19 04/29/20 14 04/29/2014 thyro id panel free T4 1.12 NG/dL (0.70- 1.80) Not Available [facility] (Centralized Electronic Ordering - All Locations) Patient Can Go To The Location Of Their Choice, [id number] 05/19/2014 15:01:25 04/29/20 14 04/29/2014 thyro id panel TSH 2.05 mIU/m L (0.4-4 .0) Not Available [facility] (Centralized Electronic Ordering - All Locations) Patient Can Go To The Location Of Their Choice, [id number] 05/19/2014 15:01:25 04/29/20 14 04/29/2014 BMP, serum or plasm a glucose 83 mg/dL (70-99 ) Not Available [facility] (Centralized Electronic Ordering - All Locations) Patient Can Go To The Location Of Their Choice, [id number] 05/19/2014 15:01:23 04/29/20 14 04/29/2014 BMP, serum or plasm a BUN 13 mg/dL (6-20) Not Available [facility] (Centralized Electronic Ordering - All Locations) Patient Can Go To The Location Of Their Choice, [id number] 05/19/2014 15:01:23 04/29/20 14 04/29/2014 BMP, serum or plasm a creatinine 0.5 mg/dL (0.5-1 .0) Not Available [facility] (Centralized Electronic Ordering - All Locations) Patient Can Go To The Location Of Their Choice, [id number] 05/19/2014 15:01:23 04/29/20 14 04/29/2014 BMP, serum or plasm a sodium 140 mmol/ L (133-1 45) Not Available [facility] (Centralized Electronic Ordering - All Locations) Patient Can Go To The Location Of Their Choice, [id number] 05/19/2014 15:01:23 04/29/2004/29/2014 BMP, serum or plasm [...] Go To The Location Of Their Choice, [id number] 05/19/2014 15:00:45 04/29/20 14 04/29/2014 CBC w/ [...] Go To The Location Of Their Choice, [id number] 05/19/2014 15:00:45 04/29/20 14 04/29/2014 CBC w/ [...] Go To The Location Of Their Choice, [id number] 03/29/2016 21:45:16 03/29/2003/29/2016 CMP, serum or plasm [...] IN D INADE QUACY . Refer ence: [facility] Data Brief : No.59 September: Vitam in D Statu s: Unite d State s: 2000- 2005 Not Available [facility] (Centralized Electronic Ordering - All Locations) Patient Can Go To The Location Of Their Choice, [id number] 03/30/2016 10:46:50 04/19/2004/19/2016 hepat ic funct ion [...] Go To The Location Of Their Choice, [id number] 04/19/2016 20:15:15 04/19/20 16 04/19/2016 hepat ic funct ion panel , serum alk phos 95 U/L (35-10 4) Not Available [facility] (Centralized Electronic Ordering - All Locations) Patient Can Go To The Location Of Their Choice, [id number] 04/19/2016 20:15:15 04/19/20 16 04/19/2016 hepat ic funct ion panel , serum total protein 7.2 gm/dL (6.2-8 .2) Not Available [facility] (Centralized Electronic Ordering - All Locations) Patient Can Go To The Location Of Their Choice, [id number] 04/19/2016 20:15:15 04/19/20 16 04/20/2016 HBsAg (hepa titis B surfa ce Ag), serum hep. B surf. Ag NEGAT DILIP REFER ENCE RANGE : NEGAT DIILP Not Available [facility] (Centralized Electronic Ordering - All Locations) Patient Can Go To The Location Of Their Choice, [id number] 04/20/2016 10:01:14 04/19/20 16 04/20/2016 hepat itis C virus Ab, serum anti-hepatit is C NEGAT DILIP REFER ENCE RANGE : NEGAT DILIP Not Available [facility] (Centralized Electronic Ordering - All Locations) Patient Can Go To The Location Of Their Choice, [id number] 04/20/2016 10:25:43 04/30/20 14 elect rocar diogr [...] Go To The Location Of Their Choice, [id number] 03/29/2016 15:11:38 07/01/20 15 05/27/2015 imagi ng/di agnos tic resul t No observ ation record ed. awychowski Not Available 07/15 06:07:57 Result Notes Documentation Provider Name and Address Organization Details Recorded Time Ct, Head, W/o Contrast : Examination: Noncontrast head CT performed on 05/01/2013. History: Headache. Technique and findings: Contiguous 4.8 mm axial images were obtained from the skullbase through the vertex without intravenous contrast. There are no prior similar studies currently available for direct comparison. The visualized sinuses are free from disease. The ventricular system and subarachnoid spaces are within normal limits. There is no intracranial hemorrhage, mass effect or midline shift. No intra or extra-axial fluid collections are identified. The osseous structures are unremarkable. Impression: There is no acute intracranial abnormality. Dictated By: Salma Carrillo MD Dictated Date/Time: 05/02/13 8:00 am Reviewed By: Salma Carrillo MD Signed By: Salma Carrillo MD Signed Date/Time: 05/02/13 8:00 am Transcribed By: ENE Transcribed Date/Time: 05/02/13 8:00 am Patient Class: Outpatient Catalina akbar [facility] 03/29/2016 15:11:38 Problems Name Problem SNOMED Code Status Onset Date Resolution Date Notes Provider Name and Address Organization Details Recorded Time Shoulder joint pain 096407492 Active BRYCE Adams [address] [address], [place], [address] , [facility] 4 13:32:27 Palpitat ions 54921282 Active [facility] [place] [place] 4 15:59:36 Pain of shoulder region 64436161 Active Kvng Wang MD [address] [address], [place], [address] , [facility] 5 13:15:10 Contact dermatit is 62383479 Active Kvng Wang MD [address] [address], [place], [address] , [facility] 5 08:20:27 Neck pain 51043145 Active Kvng Wang MD [address] [address], [place], [address] , [facility] 5 08:20:27 Adhesive capsulit is of shoulder 607216293 Active Kvng Wang MD [address] [address], [place], [address] , [facility] 5 19:43:17 Allergic rhinitis 41983080 Active Reyna andino [place] null, [facility] 5 11:05:40 Gastroes ophageal reflux disease 705580918 Active BRYCE Adams [address] [address], [place], [address] , [facility] 4 13:32:27 Headache 49155481 Active BRYCE Adams [address] [address], [place], [address] , [facility] 4 13:32:27 Menopaus al symptom 93636014 Active [facility] Griffiths, [facility] [address] [facility] [address], [place], [address] , [facility] 4 13:32:27 Pure hypercho lesterol emia 273815572 Active Brian Griffiths, [facility] [address] [facility] [address], [place], [address] , [facility] 4 13:32:27 Migraine 80444954 Active [facility] [place] [place] 4 15:59:36 Patient status finding 906283773 Active Brian Griffiths, [facility] [address] 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 [address], [place], [address] , [facility] 4 13:32:27 Acute upper respirat ory infectio n 45272753 Active Brian Griffiths, [facility] [address] [facility] [address], [place], [address] , [facility] 4 13:32:27 Allergic rhinitis 96850802 Completed 201202/17/2014 RECORDED 09/03/19 13 2:19PM BY DIANE GHOSH MA, GABE ON/ADDEN DUM Not Available [facility] 4 05:24:01 Patient status finding 064140448 Completed 201202/17/2014 RECORDED 09/03/19 13 2:19PM BY DIANE GHOSH MA, GABE ON/ADDEN DUM Not Available [facility] 4 05:24:01 Chest pain 09117291 Completed 201202/17/2014 IMPRESSI ON: PPI AFFORDIN G RELIEF SO LIKELY GERD RELATED. WILL REASSESS WITH CONSITEN T USE AND INVETIGA TE FURTHER IF PERSISTA NT/WORSE . VIT D DEFICIEN CY ALSO POSSIBLE .; RECORDED 09/03/19 13 2:19PM BY DIANE GHOSH MA, NIGELATI ON/ADDEN DUM Not Available [facility] 4 05:24:01 Adult health examinat ion Completed 201202/17/2014 IMPRESSI ON: IMMUNIZA TION STATUS UTD (WILL VERIFY WITH PRIOR PCP RECORDS WHEN AVAILABL E) AND SCREEN BASED ON RISK FACTORS. REGULAR DENTAL CARE AND SEATBELT USE ADVISED. DISTRACT ED DRIVING DONNA Muir ROUTINE CROSSING [facility] C[facility] UTD, WILL REQUEST RECORDS FOR CONFIRMA TION; RECORDED 09/03/19 13 2:19PM BY DIANE GHOSH MA, GABE ON/ADDEN DUM Not Available [facility] hospital 4 05:24:02 Immuniza tion refused Completed 201202/17/2014 RECORDED 09/03/19 13 2:19PM BY DIANE GHOSH MA, NIGELATI ON/ADDEN DUM Not Available [facility] 4 05:24:02 Allergic rhinitis 99749237 Completed 201201/21/2014 RECORDED 09/03/19 13 2:19PM BY DIANE GHOSH MA, ANNOTATI ON/ADDEN DUM Not Available [facility] 4 14:05:00 Patient status finding 837108921 Completed 201201/21/2014 RECORDED 09/03/19 13 2:19PM BY DIANE GHOSH MA, NIGELATI ON/ADDEN DUM Not Available [facility] 4 14:05:00 Chest pain 05363864 Completed 201201/21/2014 IMPRESSI ON: PPI AFFORDIN G RELIEF SO LIKELY GERD RELATED. WILL REASSESS WITH CONSITEN T USE AND INVETIGA TE FURTHER IF PERSISTA NT/WORSE . VIT D DEFICIEN CY ALSO POSSIBLE .; RECORDED 09/03/19 13 2:19PM BY DIANE GHOSH MA, ANNOTATI ON/ADDEN DUM Not Available [facility] 4 14:05:01 Adult health examinat ion Completed 201201/21/2014 IMPRESSI ON: IMMUNIZA TION STATUS UTD (WILL VERIFY WITH PRIOR PCP RECORDS WHEN AVAILABL E) AND SCREEN BASED ON RISK FACTORS. REGULAR DENTAL CARE AND SEATBELT USE ADVISED. DISTRACT ED DRIVING DISCUSSE D. ROUTINE CROSSING [facility] UTD, WILL REQUEST RECORDS FOR CONFIRMA TION; RECORDED 09/03/19 13 2:19PM BY DIANE GHOSH MA, ANNOTATI ON/ADDEN DUM Not Available [facility] hospital 4 14:05:01 Immuniza tion refused Completed 201201/21/2014 RECORDED 09/03/19 13 2:19PM BY DIANE GHOSH MA, ANNOTATI ON/ADDEN DUM Not Available [facility] 4 14:05:02 Screenin g for malignan t neoplasm of breast Completed 201202/17/2014 RECORDED 12/20/19 13 8:56AM BY DIANE GHOSH MA, ANNOTATI ON/ADDEN DUM Not Available [facility] 4 05:24:02 Screenin g for malignan t neoplasm of breast Completed 201201/21/2014 RECORDED 12/20/19 13 8:56AM BY DIANE GHOSH MA, ANNOTATI ON/ADDEN DUM Not Available [facility] 4 14:05:01 Dysfunct ion of eustachi an tube 74388478 Completed 201202/17/2014 IMPRESSI ON: LIKELY ALLERGY RELATED. SALINE NASAL IRRIGATI ON ADVISED WELL. CALL INB/WORS E.; RECORDED 04/30/20 13 1:20PM BY TYSON HOWELL MA, ANNOTATI ON/ADDEN DUM Not Available [facility] 4 05:24:02 Vitamin D deficien cy 54932269 Completed 201202/17/2014 IMPRESSI ON: WILL REASSESS WITH HIGH DIOSE SUPPLEME NTATION AND ADJUST DAILY DOSE TO FIORELLA AND MAINTAIN A LEVEL 20-50.; RECORDED 04/30/20 13 1:20PM BY TYSON HOWELL MA, ANNOTATI ON/ADDEN DUM Not Available [facility] 4 05:24:02 Dysfunct ion of eustachi an tube 00209621 Completed 201201/21/2014 IMPRESSI ON: LIKELY ALLERGY RELATED. SALINE NASAL IRRIGATI ON ADVISED WELL. CALL INB/WORS E.; RECORDED 04/30/20 13 1:20PM BY TYSON HOWELL MA, ANNOTATI ON/ADDEN DUM Not Available [facility] 4 14:05:01 Vitamin D deficien cy 76115937 Completed 201201/21/2014 IMPRESSI ON: WILL REASSESS WITH HIGH DIOSE SUPPLEME NTATION AND ADJUST DAILY DOSE TO FIORELLA AND MAINTAIN A LEVEL 20-50.; RECORDED 04/30/20 13 1:20PM BY TYSON HOWELL MA, ANNOTATI ON/ADDEN DUM Not Available [facility] 4 14:05:02 Palpitat ions 17877170 Completed 201202/17/2014 IMPRESSI ON: LIEKLY STRESS RELATED. NOT WORSE WITH EXERTION ; RECORDED 07/02/20 13 10:03AM BY EDD KINGSLEY MA, ANNOTATI ON/ADDEN DUM Not Available [facility] 4 05:24:02 Palpitat ions 82861413 Completed 201201/21/2014 IMPRESSI ON: LIEKLY STRESS RELATED. NOT WORSE WITH EXERTION ; RECORDED 07/02/20 13 10:03AM BY EDD KINGSLEY MA, ANNOTATI ON/ADDEN DUM Not Available [facility] 4 14:05:02 Bronchit is 43902203 Completed 201302/17/2014 RECORDED 11/16/19 14 4:04PM BY EDD KINGSLEY MA, ANNOTATI ON/ADDEN DUM Not Available [facility] 4 05:24:01 Cough 70936431 Completed 201302/17/2014 RECORDED 11/16/19 14 4:04PM BY EDD KINGSLEY MA, ANNOTATI ON/ADDEN DUM Not Available [facility] 4 05:24:01 Bronchit is 73666564 Completed 201301/21/2014 RECORDED 11/16/19 14 4:04PM BY EDD KINGSLEY MA, ANNOTATI ON/ADDEN DUM Not Available [facility] 4 14:05:00 Cough 22882522 Completed 201301/21/2014 RECORDED 11/16/19 14 4:04PM BY EDD KINGSLEY MA, ANNOTATI ON/ADDEN DUM Not Available [facility] 4 14:05:01 Acute upper respirat ory infectio n 76406111 Completed 201302/17/2014 RECORDED 01/02/20 14 10:18AM BY EDD KINGSLEY MA, ANNOTATI ON/ADDEN DUM Not Available Critical [facility] hospital 4 05:24:02 Problem Notes None recorded. Medical Equipment None Reported. [...] Available Not Avai lable Vitals Date Recorded Body height Oxygen saturation Oxygen saturation in Arterial blood by Pulse oximetry Body weight Heart rate Body mass index (BMI) Body temperature Systolic And Diastolic Provider Name and Address Organization Details Last Updated DateTime 5 149.86 cm 97 % 97 % 00509.2 87178 g 83 /min 19.9 kg/m2 97.8 [degF] 106/64 mm[Hg] Osmin Shipamn [facility] 5 12:58:22 Date Recorded Body height Oxygen saturation Oxygen saturation in Arterial blood by Pulse oximetry Heart rate Body weight Body mass index (BMI) Body temperature Systolic And Diastolic Provider Name and Address Organization Details Last Updated DateTime 6 149.86 cm 100 % 100 % 86 /min 79826.7 4 g 19.6 kg/m2 98.3 [degF] 92/61 mm[Hg] Netta Martinez MA [facility] 6 15:16:06 Date Recorded Oxygen saturation Oxygen saturation in Arterial blood by Pulse oximetry Body weight Heart rate Body mass index (BMI) Body height Body temperature Systolic And Diastolic Provider Name and Address Organization Details Last Updated DateTime 4 99 % 99 % 62362.7 70706 g 95 /min 19.8 kg/m2 149.86 cm 98.1 [degF] 106/75 mm[Hg] Netta Martinez MA [facility] 4 13:00:06 Date Recorded Body height Oxygen saturation Oxygen saturation in Arterial blood by Pulse oximetry Heart rate Body temperature Body weight Body mass index (BMI) Systolic And Diastolic Provider Name and Address Organization Details Last Updated DateTime 5 149.86 cm 97 % 97 % 80 /min 97.8 [degF] 89060.6 4463 g 20 kg/m2 102/58 mm[Hg] Reyna moreau MA [facility] 5 10:56:53 Date Recorded Body height Body weight Body mass index (BMI) Body temperature Oxygen saturation Oxygen saturation in Arterial blood by Pulse oximetry Heart rate Systolic And Diastolic Provider Name and Address Organization Details Last Updated DateTime 6 149.86 cm 44562.7 4 g 19.6 kg/m2 98.4 [degF] 99 % 99 % 95 /min 109/70 mm[Hg] Hannah Bermudez [facility] 6 10:43:33 Social History Question Answer Notes LastModified by Organizat ion Details LastModified Time Tobacco Smoking Status Never Smoker Not Available [employer] 05/12/2020 03:36:35 How Much Tobacco Do You Chew? None [id number] Information not available 05/12/2020 What Type Of Diet Are You Following? REGULAR [id number] Information not available 05/12/2020 Which Illicit Or Recreational Drugs Have You Used? None [id number] Information not available 05/12/2020 Live Alone Or With Others? With Others Information not available 05/07/2015 Smoke Alarm In Home Yes Information not available 05/07/2015 At What Age Did You Start Smoking Tobacco? 1 [id number] Information not available 05/12/2020 Are You Passively Exposed To Smoke? No Information no t available 05/07/2015 How Much Tobacco Do You Smoke? No [id number] Information not available 05/12/2020 How Many Years Have You Smoked Tobacco? 0 [id number] Information not available 05/12/2020 Sex: Unknown Functional Status Question Answer Note LastModified by Organization D etails LastModified Time Are you able to care for yourself independently? Yes [id number] Information not available 05/12/2020 Mental Status None recorded. Family [...] Problems N Developmental Delay N Acne N Eating Disorder N Skin Problems N Anemia N Constipation N Bladder Problems N Mental Illness N Diabetes N Ovarian Cancer N Bedwetting N Blood Transfusions N Heart Problems/Murmur N Seizures/Epilepsy N Tuberculosis N AIDS/HIV N Congestive Heart Failure (CHF) N Eczema N Abuse/Domestic Violence N Diverticulitis N Asthma N Allergies N Reflux/GERD N Hepatitis N Heart Disease N Pulmonary Embolism N Hypertension N Chicken Pox N Autism Spectrum Disorder (ASD) N Osteoporosis N Gynecological HistoryNo gynecological history recorded. Obstetrics History GPAL:G 0 P 0 0 0 0 Past Encounters Encounter ID Performer Location Encounter Start Date Encounter Closed Date Diagnosis/Indication Diagnosis SNOMED-CT Code Diagnosis ICD10 Code Diagnosis IMO Codes Diagnosis Note [id number] [employer] [address] [facility] [address] [place] [address] 08/07/2012 00:00:00 [id number] [employer] [address] [facility] [address] [place] [address] 12/19/2012 00:00:00 [id number] [employer]0 [facility] [address] [place] [address] 04/30/2013 00:00:00 [id number] [employer] [address] [place] [address],[place] [address] [place], [place] [address] 07/02/2013 00:00:00 [id number] [employer] [facility] [address] [place] [address],[place] [address] [place], [place] [address] 11/15/2013 00:00:00 [id number] [employer] [address] [place] [address],[place] [address] [place], [place] [address] 01/01/2014 00:00:00 [id number] Brian Griffiths [facility] Main Office [address] [facility] [address] [place] [address] 04/29/2014 12:43:14 04/29/2014 13:45:14 Palpitations 58520967 Patient feels hot sensation and gets palpitatio ns then migraine headache. She would like to haev bloodwork done to r/o possible causes of hot flashes. Ekg in office negative Migraine 96966680 Hot sensation may be a preceding sx to her migraines will start propranolo l daily and sumatripta n as needed. [id number] Brian Griffiths [facility] Main Office [address] [address] [place] [address] 09/04/2014 12:40:04 09/04/2014 13:25:38 Pain of shoulder region 20479356 Bursitis vs impingemen t syndrome. Recommend anti-infla mmatory, ice, rest, PT. She is unable to start PT at this time due to co-pay, will try home exercises. If sx persist please return. Contact dermatitis 67948853 To face, was seeing derm and was prescribed a steroid cream. Neck pain 41447999 Some ne ck muscle tension on left, ice or heat to area, stretches. [id number] Brian Griffiths [facility] Main Office [address] [facility] [address] [place] [address] 05/07/2015 10:29:22 05/07/2015 12:00:23 Pain of shoulder region 32666482 M25.512 Bursitis vs impingemen t syndrome. Recommend anti-infla mmatory, ice, rest, PT. She is unable to start PT at this time due to co-pay, will try home exercises. Recommend she see an disaster recovery specialist for further work-up and management , possible injection therapy. We will arrange this appointmen t for her. [id number] Geni Valverde PA-C Main Office [address] [facility] [address] [place] [address] 03/29/2016 14:55:01 03/29/2016 15:51:25 Generalized anxiety disorder 83044468 F41.1 Start medication s as directed fo anxiety , depression adn panic d/o. Pt. is advised to call and scheduled shaq for therapy . F/u 4 weeks. Panic disorder 063256281 F41.0 Fatigue 58887251 R53.83 Major depr essive disorder 599848908 F32.9 [id number] BRYCE Adams Main Office [address] [facility] [address] [place] [address] 05/12/2016 10:33:51 05/12/2016 12:27:15 Upper respiratory infection 30420421 J06.9 Sx x 1 week, worsening, symptomati c treatment- hydration, tylenol or ibuprofen for fever/ pain as needed, rest, tea with honey, soups. Health Concerns Section Related Observation LastModified by Organization Detai ls LastModified Time None Recorded Concern Status LastModified by Organization Details LastModified Time None Recorded Advance Directives Directive None Recorded Payers Insurance Date Sequence Insurance Name Policy Number Policy Ramos Covered Member ID Ramos Member ID Guarantor Name 02/04/2018 PAYMENT PLAN Aaron Sarabia 04/07/2017 1 POLINA [id number] Aaron Sarabia [id number] Aaron Sarabia Notes Date Note Type Note Provider Name and Address Organization Details Recorded Time 04/29/20 14 text/htm l HeadacheReported by PatientHPIFor onset/timing, patient reportsworse. For associated symptoms, patient reportsnausea,photophobia, anddizzinessbut reportsno vomiting,tearing/watery eyes,no confusion,no slurred speech,no preceeding aura,no double vision,normal feeling/sensation,no motor paralysis,no sleep disturbances,no nosebleeds,no hoarseness,no sore throat, andno hearing loss(phonophobia). For location, patient reportsfacialandtemporal. For quality, patient reportsnot the worst headache everandsimilar to previous headaches. For severity, patient reportsmoderate. For duration, patient reportsintermittent(almost daily x 1 month). For context, patient reportsnot related to trauma,food (triggered by certain foods, smells.), andtriggered by caffeine(occurs with hot flash- sensation of heat to chest). For aggravating factors, patient reportsnothing makes it worse. For alleviating factors, patient reportsnothing gives relief.Patient has had migraine like headaches x years, she can control somehat by avoiding certain trigger foods. She saw a neurologist but decided against treatment due to liver side effects. She feels she gets a very hot feeling to chest and face- like hot flashes and she knows headache will come on. Generic HPI TemplateReported by PatientPatient was seen previosuly c/o of hot flashes she was referred to [facility] who told her she was not menopausal but did not do any testing. She had some type of a scope done which showed a cause for her long menstrual periods. She is still getting her menses monthly. 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 For location, patient reportsforehead. For severity, patient reportsmoderate. For duration, patient reportshas noted for >3 months. For context, patient reportsno new detergents or skin products,no one else with similar rash, andnot scratching. For associated symptoms, patient reportsno fever,no cold symptoms,no nausea,no vomiting,no diarrhea,no urinary symptoms,no chills,no fatigue, andno change in weight.Rash above eyebrows x 1 week, has had this intermittently x months- years, usually uses a steroid cream. Musculoskeletal PainReported by PatientHPIFor quality, patient reportsaching. For severity, patient reportsworsening. For adl (activities of daily living), patient reportsdo not improve with medication. For location, patient reportsleft shoulderandleft arm. For duration, patient reportspresent for 1-6 months. For timing, patient reportsintermittentandpain at night. For aggravating factors, patient reportsmovement/positioning. For associated symptoms, patient reportsno fever,no weak limbs,no tingling,no numbness of the legs/feet, andon incontinence.Patient was lifting 5lb weights one month ago in rapid succession (usually only lifts 3lb weights), she felt a pop in her left shoulder- stopped doing 5lb weights. She has tried to continue 3 lbs weights a few times weekly but has pain to left shoulder. Worse after sleeping on it, trying to lift arm above head, lifting grocery bags/ heavy items. She has tried ibuprofen without relief. She has been sleeping funny and now has neck pain and muscle tension.ROS as noted in the HPI Kvng Wang MD [address], [address], [facility] 09/05/2014 08:20:29 05/07/20 15 text/htm l Musculoskeletal PainReported by PatientHPIFor quality, patient reportsaching. For severity, patient reportsworsening. For adl (activities of daily living), patient reportsdo not improve with medication. For location, patient reportsleft shoulderandleft arm. For duration, patient reportspresent for 1-6 months. For timing, patient reportsintermittentandpain at night. For aggravating factors, patient reportsmovement/positioning. For associated symptoms, patient reportsno fever,no weak limbs,no tingling,no numbness of the legs/feet, andon incontinence.Presents for f/u left shoulder pain, seen in August for same, was able to have 4 visits with a chiropractor in October with some improvement but she had to stop this as she could not afford the co-pays. She notes her shoulder is getting worse and APT was recommended but she cannot afford PT co-pays. She is using [employer] machine that is heklpful and she has pain medication that helps but she feels she may benefit from an injection.ROS as noted in the HPI Kvng Wang MD [address] [address], [place], [address], [facility] 05/07/2015 13:15:11 03/29/20 16 text/htm l Anxiety/DepressionReported by PatientHPIFor quality, patient reportssymptoms worse in the evening,increased anxiety, andpanic symptoms(and night. pt. has a lot of headaches and wakes up at night with anxiety , palpitations, difficulty breathing, muscle tension in the neck.). For severity, patient reportsinterference with sleepandinterference with workbut reportsdenies suicidal ideations( is also suffering from panic d/o and it affects and stresses her out./ pt. has family h/o anxiety in sister and aunt.). For context, patient reportsfamily problems(denies etoh, drugs or smoking.). For associated symptoms, patient reportshigh irritability,anxiety,depressio n,sleep disturbances,anxiety with muscle tension,palpitations, andanxiety with excessive sweatingbut reportsdenies homicidal ideations,no significant weight gain,no significant weight loss,no visual/auditory hallucinations,no delusions,no shortness of breath,no crying spells,no isolation, andappetite good. For duration, patient reportsstarted:(about 2 years ago started , but since march started symptoms are more severe and more frequent.). For modifying factors, patient reportssocial support(good social support. no counseling).NO prior medication treatments for anxiety/depression. NO recent labs.ROS as noted in the HPI Sebas Ng MD [address] [facility] [address], [place], [address], [facility] 03/29/2016 19:39:40 05/12/20 16 text/htm l Sinusitis/AllergyReported by PatientHPIFor associated symptoms, patient reportsfacial pain bilaterally,sinus pain forehead,thick phlegm in throat,constantly clearing the throat,nasal discharge, andear fullness. For quality, patient reportshoarseness,congested,co lored phlegm, andproductive cough. For context, patient reportsrecent upper respiratory infection. For risk factors, patient reportsno history of asthma.Patient c/o fever, chills, bodyaches, cough productive yellow phlegm, left ear pain. Denies abd pain, N/V/D. Sx x 1 week. Has been taking ibuprofen with some relief.ROS as noted in the HPI Kvng Wang MD [address] [address], [place], [address], [facility] 05/12/2016 12:17:20 OBGyn Episode No OBEpisode recorded.
--- OUTSIDE RECORDS SUMMARY | 2025-04-23 10:54 | XMS_ITS | Clinical Summary ---
Author Organization [employer] Address [address] [place] [address] 7 [place] [address] Care Team Providers Care Keno Dealer Name Role Phone Afsaneh Fraire CNP Primary Care Provider [phone] Allergies No known active allergies Medications cetirizine (ZyrTEC) 10 MG tablet Take 1 tablet by mouth at bed time. 1 Active fluticasone (Flonase Allergy Relief) 50 MCG/ACT nasal spray Administer 1-2 sprays into affected nostril(s) at bed time. 1 Active hydrOXYzine HCl (Atarax) 50 MG tablet Take 1 tablet by mouth at bed time. 9 Active acetic acid-hydrocorti sone (Vosol-HC) otic solutionIndicat ions:Chronic allergic otitis externa Administer 3 drops into each ear 4 times daily for 10 days. 10 mL 05/02/20 25 Active Encounters Date Type Department Care Team Description 04/22/2025 1:00 PM EDT Office Visit [facility] [address] [place] [address] Afsaneh Fraire CNP Encounter for physical examination (Primary Dx); Blood pressure elevated without history of HTN; Encounter for screening mammogram for breast cancer; Screening for colon cancer; Chronic allergic otitis externa 04/22/2025 Travel 04/22/2025 Telephone [facility] [address] [place] [address] Susy Feldman MA chart prep 04/15/2025 Travel 04/15/2025 Patient Outreach [facility] [address] [place] [address] Afsaneh Fraire CNP Pre-visit Planning (SDOH Screening negative and Tobacco screening negative) 03/17/2025 Telephone [facility] [address] [facility] [place] [address] Piero Barker MD [facility] - New Patient Assistance from Last 3 Months Immunizations Immunization Administration Dates Next Due Influenza Injectable Quadriv alant Preservative Free IIV4 MDCK 05/19/2022 Tdap 11/23/2018 Family History Medical History Relation Name Comments Lung cancer Mother Marcelle Relation Name Status Comments Mother Marcelle Social History Tobacco Use Types Packs/Day Years [...] Orientation Straight 05/09/2022 10 :23 AM EDT Last Filed Vital Signs Vital Sign Reading [...] Mass Index 20.4 04/22/2025 1:12 PM EDT Plan of Treatment Upcoming Encounters Date Type Department Care Team (Late st Contact Info) Description 05/13/2025 11:15 AM EST Office Visit [facility] [address] [place] [address] Afsaneh Fraire, [facility] [address] [place] [address] Health Maintenance Due Date Last Done Comments CT Colonography 1970 Colonoscopy 1970 Colorectal Cancer Screening 1970 FIT DNA/Cologuard 1970 FIT 1970 FOBT 1970 HIV Screening 1970 Sigmoidoscopy 1970 Alcohol/Substance Use Screening 1982 Hepatitis C Screening 1988 Pap Smear 1991 Cervical Cancer Screening 2000 HPV/Cotest 2000 Mammogram 2010 Zoster Vaccines (1 of 2) 2020 Influenza Vaccine (#1) 2026 05/19/2022 Postp oned from 03/10/2025 (Patient Refused) Disability Screening 04/15/2026 04/15/2025 SDOH Screening 04/15/2026 04/15/2025 COVID-19 Vaccine (4 - 2024-2 6 season) 2026 06/28/2021, 11/07/2020, 10/15/2020 Postponed from 03/10/2025 (Patient Refused) Depression Screening 04/22/2026 04/22/2025, 04/22/2025 Hepatitis B Vaccines (1 of 3 - 19+ 3-dose series) 04/22/2026 Postponed from 07/11 (Patient Refused) Pneumococcal Vaccine: 50+ Years (1 of 1 - PCV) 04/22/2026 Postponed from 07/11 (Patient Refused) Tobacco Screening 04/22/2026 04/22/2025 DTaP/Tdap/Td Vaccines (2 - T d or Tdap) 11/23/2028 11/23/2018 RSV Patients and Patients Aged 60 years or older (1 - 1-dose 75+ series) 2045 HIB Vaccines Aged Out No longer eligi ble based on patient's age to complete this topic HPV Vaccines Aged Out No longer eligi ble based on patient's age to complete this topic Hepatitis A Vaccines Aged Out No long er eligible based on patient's age to complete this topic IPV Vaccines Aged Out No longer eligi ble based on patient's age to complete this topic Meningococcal B Vaccine Aged Out No l onger eligible based on patient's age to complete this topic Meningococcal Vaccine Aged Out No monty dallin eligible based on patient's age to complete this topic RSV under 20 months Aged Out No longe r eligible based on patient's age to complete this topic Rotavirus Vaccines Aged Out No longer eligible based on patient's age to complete this topic Insurance Care Teams Keno Dealer Relationship Specialty Start Date End Date Afsaneh Fraire CNP [address] [place] [id number] PCP - General Family Medicine 04/22/25
--- OUTSIDE RECORDS SUMMARY | 2025-04-23 10:54 | XMS_ITS | Encounter Summary ---
Author Organization [employer] Address [address] [place] [address] [address] [place] [address] Care Team Providers Care Alining Inspector Name Role Phone Juno Andreten MOORE Primary Care Provider [phone] Reason for Visit * Reason Onset Date Comments chart prep 04/22/2025 Encounter Details Date Type Department Care Team ([facility] st Contact Info) Description 04/22/2025 Telephone [facility] [address] [place] [address] [place] chart prep Social History Tobacco Use Types Packs/Day Years Used Date Smoking Tobacco: Never Smokeless Tobacco: Never Alcohol Use Standard Drinks/Week Comments Never 0 [...] AM EDT documented as of this encounter Miscellaneous Notes * Telephone Encounter - Susy Feldman MA - 04/22/2025 11:54 AM EDT Chart Prep Labs: not applicable Images: not applicable Referrals: not applicable Vaccines due: Flu, Covid, HepB, Zoster, PCV20 Screenings: colonoscopy, mammogram, STI screening, and LMP Overdue care gaps: SBIRT, PHQ-9, MELISA-7, and Tobacco documented in this encounter Plan of Treatment Upcoming Encounters Date Type Department Care Team (Late st Contact Info) Description 05/13/2025 11:15 AM EST Office Visit [facility] [address] [place] [address] Afsaneh Fraire CNP [address] [place] [address] documented as of this encounter Visit Diagnoses Not on filedocumented in this encounter Additional Health Concerns Assessment Noted Time PHQ-9 Depression Total Score: 0 04/22/20 1:16 PM EDT documented as of this encounter Care Teams Alining Inspector Relationship Specialty Start Date End Date Afsaneh Fraire CNP [address] [place] [address] PCP - General Family Medicine 04/22/25 documented as of this encounter
--- OUTSIDE RECORDS SUMMARY | 2025-04-23 10:54 | XMS_ITS | Encounter Summary ---
Author Organization [employer] Address [address] [facility] [address] [place] [address] Care Team Providers Care Office Nurse Name Role Phone JunoAfsaneh OSCAR Primary Care Provider [phone] Encounter Details Date Type Department Care Team (Latest Contact Info) Description 04/22/2025 Travel Social History Tobacco Use Types Packs/Day Years [...] AM EDT documented as of this encounter Functional Status * Over the past 2 weeks, how often have you been bothered by any of the following problems? Question Answer Date of Assessment Author Patient Health Questionnaire -2 Score 0 04/22/2025 1:16 PM EDT Tres Feldman MA * Little interest or pleasure in doing things Answer Date of Assessment Author Not at all 04/22/2025 1:16 PM EDT [facility] Susy millan [place] * Feeling down, depressed, or hopeless Answer Date of Assessment Author Not at all 04/22/2025 1:16 PM EDT [facility] Susy millan [place] * Trouble falling or staying asleep, or sleeping too much Answer Date of Assessment Author Not at all 04/22/2025 1:16 PM EDT [facility] Susy millan [place] * Feeling tired or having little energy Answer Date of Assessment Author Not at all 04/22/2025 1:16 PM EDT [facility] Susy millan [place] * Poor appetite or overeating Answer Date of Assessment Author Not at all 04/22/2025 1:16 PM EDT [facility] Susy millan [place] * Feeling bad about yourself - or that you are a failure or have let yourself or your family down Answer Date of Assessment Author Not at all 04/22/2025 1:16 PM EDT [facility] Susy millan [place] * Trouble concentrating on things, such as reading the newspaper or watching television Answer Date of Assessment Author Not at all 04/22/2025 1:16 PM EDT [facility] Susy millan MA * Moving or speaking so slowly [...] Marie MA documented as of this encounter Plan of Treatment Upcoming Encounters Date Type Department Care Team (Late st Contact Info) Description 05/13/2025 11:15 AM EST Office Visit [facility] [address] [place] [address] Afsaneh Fraire CNP [address] [place] [address] documented as of this encounter Visit Diagnoses Not on filedocumented in this encounter Additional Health Concerns Assessment Noted Time PHQ-9 Depression Total Score: 0 04/22/20 1:16 PM EDT documented as of this encounter Care Teams Office Nurse Relationship Specialty Start Date End Date Afsaneh Fraire CNP [address] [place] [address] PCP - General Family Medicine 04/22/25 documented as of this encounter
[2025-04-23 14:15] LABS: MANUAL DIFF FLAG NO
[2025-04-23 14:16] LABS: Hematocrit 38.2 % (37.0-47.0); Hemoglobin 12.4 g/dl (12.0-16.0); Imm Gran Abs Auto 0.00 X10*3/uL (0.00-0.03); Imm Gran Pct Auto 0.0 % (0.0-0.4); Lymphocytes Absolute Auto 1.7 X10*3/uL (1.2-4.9); Mean Corpuscular HGB Conc 32.5 g/dl (31.0-35.0); Mean Corpuscular Hemoglobin 29.5 pg (27.0-33.0); Mean Corpuscular Volume 90.7 fL (80.0-98.0); NRBC Abs Auto 0.000 X10*3/uL (0.0-0.012); NRBC Pct Auto 0.0 /100WBC (0.0-0.2); Platelet Count 258 X10*3/uL (160-400); Red Blood Count 4.21 X10*6/uL (4.20-5.50); White Blood Count 3.9 X10*3/uL (4.8-10.8)
[2025-04-23 14:43] LABS: Alanine Aminotransferase 39 U/L (0-31); Albumin Level 4.8 g/dL (3.5-5.0); Anion Gap 12 (12-20); Aspartate Amino Transferase 33 U/L (5-31); Blood Urea Nitrogen 15 mg/dL (9-16); Calcium 9.8 mg/dL (8.4-10.2); Carbon Dioxide 28 mmol/L (22-29); Chloride 108 mmol/L (96-108); Cholesterol 295 mg/dL (<200); Estimated Glomerular Filt Rate > 60; HDL Cholesterol 45 mg/dL (>40); Potassium 4.7 mmol/L (3.3-5.1); Sodium 143 mmol/L (135-145); Total Protein 7.7 g/dL (6.5-8.0); Triglycerides 159 mg/dL (<150)
[2025-04-23 14:55] LABS: Alkaline Phosphatase 139 U/L (39-117)
[2025-04-24 04:49] LABS: HIV Num 1 0.05 S/CO (0.00-0.99); ~HepC Num1 0.07 S/CO (0.00-0.79); ~Hepatitis C Antibody Nonreactive (Nonreactive)
== END 2025-04-23 09:30 | disposition home or self-care (01) ==
LOC: HO.CHCLDS 09:29
DX: Z00.00 Encounter for general adult medical examination without abnormal findings (principal); Z11.4 Encounter for screening for human immunodeficiency virus [HIV]; Z11.59 Encounter for screening for other viral diseases
CPT/HCPCS: 36415; 80048; 80061; 80076; 84443; 85025; 86803; 87389